=== PATIENT | male | born 1955 | race Two or more races ===

== ENCOUNTER 2025-02-09 13:32 | Inpatient (IN) | payer MEDICARE, MEDICAID, SELFPAY ==
[2025-02-09 13:45] VITALS: BP 143/78; PULSE 110; RESP 18; TEMP 36.7; O2SAT 99; BMI 26.6
--- NOTE | 2025-02-09 13:45 | XR_ITS ---
Examination: PA chest single view Technique: Upright PA chest single view Exam date and time: January,,2024, 1347 hrs. Indication: Chest pain coughing beginning 3 days ago. Findings: Significant bilateral pneumonia, especially bases Normal heart size Moderate osteopenia Impression: Significant bilateral pneumonia
--- NOTE | 2025-02-09 13:45 | EKG_ITS ---
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
--- NOTE | 2025-02-09 13:48 | EDNOTE_ITS ---
ED General RME/HPI General Chief complaint: Urogenital-Male Stated complaint: URINARY RETENTION, COUGH, CHILLS Time Seen by Provider: 02/09/25 13:41 Arrival date/time: 02/09/25 13:32 RME / HPI RME / HPI narrative: 69-year-old male patient came in for evaluation regarding flulike symptoms. Patient has been having flulike symptoms since Wednesday about 4 days ago, described as cough nonproductive, body aches, joint pains, chills, oliguria, severity moderate. Patient was seen by PCP, and was started on ProAir, Augmentin and promethazine. According to the patient and family symptoms is not improving. Denies any other complaints no medications taken prior travel. Related Data Allergies Allergy/AdvReac Type Severity Reaction Status Date / Time No Known Allergies Allergy Verified 02/09/25 13:35 Review of Systems Review of Systems Narrative Review of Systems: Review of system reviewed and within normal limits except mentioned in HPI ED Exam Narrative Physical exam: VITAL SIGNS: Reviewed. GENERAL APPEARANCE: Alert and interactive, follows commands, no acute distress, HEAD AND FACE: Non-traumatic. ENT: PERRL, pink conjunctivitis, eyelid no trauma, Mucous membrane moist. NECK: Supple, nontender, no nuchal rigidity. CHEST: No tenderness, no crepitus, no paradoxical movement, no retractions. LUNGS: Clear, well ventilated, symmetric, no rales, no wheezing, no ronchi, no stridor, good breath sounds bilaterally. HEART: Regular rate, regular rhythm, no murmur, no gallops. ABDOMEN: Soft, positive bowel sounds, nondistended, no guarding, nontender, no rebound, no masses, RECTAL: Deferred. GENITAL: Deferred. NEUROLOGICAL: Gross motor function intact sensory function intact, Appropriate for age. MUSCULOSKELETAL: low back nontender, full range of motion. EXTREMITIES: Nontender, full range of motion. SKIN: Color pink, dry, no rash, no lacerations, no abrasions, no contusions. LYMPHATICS: Deferred. Course Quality Measures none Orders Category Date Time Status Bedside COVID-19 Antigen Test NOW Care 02/09/25 13:46 Active Bedside Influenza A&B Antigen Test NOW Care 02/09/25 13:46 Completed COVID-19 Screening Questionnaire NOW Care 02/09/25 15:39 Active Decision to Admit X1 Care 02/09/25 15:38 Active EKG (ED ONLY) *Do not use* NOW Care 02/09/25 13:45 Completed EKG (ED Only) Stat Exams 02/09/25 13:45 Draft XR chest 1V Stat Exams 02/09/25 13:45 Completed Blood Culture (Lab) Stat Lab 02/09/25 14:06 Received CBC Stat Lab 02/09/25 14:02 Completed Comprehensive Metabolic Panel Stat Lab 02/09/25 14:02 Completed Lactate (Lactic Acid) Stat Lab 02/09/25 14:02 Results Partial Thromboplastin Time Stat Lab 02/09/25 14:02 Completed Path Review Blood Smear Stat Lab 02/09/25 14:02 Completed Procalcitonin Stat Lab 02/09/25 14:02 Completed RSV [Respiratory Syncytial Virus Ag] Stat Lab 02/09/25 13:46 Ordered Troponin I Stat Lab 02/09/25 14:02 Completed UA, C/S IF [Urinalysis, C/S if Indicated] Stat Lab 02/09/25 14:12 Results Acetaminophen Tab [Tylenol ES Tab] Med 02/09/25 14:00 Discontinued 1,000 mg PO X1 ONE Azithromycin Inj [Zithromax Inj] 500 mg Med 02/09/25 14:49 Active Sodium Chloride 0.9% 250 ml [Ns] 250 ml IV X1 Ondansetron Odt [Zofran Odt] Med 02/09/25 13:49 Discontinued 4 mg PO X1 ONE Ringers Lactated 1000 ml [Lactated Ringers] 1,000 ml Med 02/09/25 15:39 Active IV 999 mls/hr Sodium Chloride 0.9% 1000 ml [Ns] 1,000 ml Med 02/09/25 13:49 Discontinued IV 999 mls/hr cefTRIAXone [Rocephin] 2 gm Med 02/09/25 14:00 Discontinued SODIUM CHLORIDE 0.9% (Popper) [Ns 0.9% (P)] 50 ml IV X1 Vital Signs Vital signs: Vital Signs Temperature 98.1 F 02/09/25 13:45 Pulse Rate 110 H 02/09/25 13:45 Respiratory Rate 18 02/09/25 13:45 Blood Pressure 143/78 H 02/09/25 13:45 Pulse Oximetry (%) 99 02/09/25 13:45 Oxygen Delivery Method Room Air 02/09/25 13:45 [facility] Patient data External records reviewed:: None Clinical information provided by:: family Social determinants that could affect healthcare access:: none Patient has the following chronic illnesses:: hypertension How is presenting disease/condition affected by chronic disease/condition?: e xacerbated by Evaluation data The following diagnostics were reviewed and interpreted by me:: lab results, radiology exam(s) and EKG tracing(s) Lab and/or radiology exams considered but not ordered:: None Interpretation Summary: See results in MDM Medications Medications considered but not ordered:: None Medication administrations:: Medication Administration History Azithromycin 500 mg/ Sodium (Chloride) 250 mls @ 250 mls/hr IV X1 ONE Stop: 02/09/25 15:48 Last Admin: 02/09/25 15:37 Dose: 250 mls/hr Documented By: JAMESON Lactated Ringer's (Lactated Ringers) 1,000 mls @ 999 mls/hr IV .Q1H1M ONE Stop: 02/09/25 16:39 Discontinued Medications Acetaminophen (Acetaminophen 500 Mg Tablet) 1,000 mg PO X1 ONE Stop: 02/09/25 14:01 Last Admin: 02/09/25 14:07 Dose: 1,000 mg Documented By: ALEXA Sodium Chloride (Ns) 1,000 mls @ 999 mls/hr IV .Q1H1M ONE Stop: 02/09/25 14:49 Last Admin: 02/09/25 15:37 Dose: 999 mls/hr Documented By: JAMESON Ceftriaxone Sodium 2 gm/ (Sodium Chloride) 50 mls @ 100 mls/hr IV X1 ONE Stop: 02/09/25 14:29 Last Admin: 02/09/25 15:37 Dose: 100 mls/hr Documented By: JAMESON Ondansetron HCl (Ondansetron Odt 4 Mg Tabrap) 4 mg PO X1 ONE; Protocol Stop: 02/09/25 13:50 Last Admin: 02/09/25 13:57 Dose: 4 mg Documented By: ALEXA Zofran, ceftriaxone IV, Zithromax IV, IV fluids for hydration patient was also given Tylenol Consultations Consultation(s) initiated? (list below): No Diagnosis Differential Diagnosis ED Complaint MDM: Sepsis, pneumonia, hyponatremia Most likely diagnosis given after review of the tests above:: Sepsis, pneumonia Admission Indicated Admission indicated?: indicated Explain why admission is indicated or not indicated:: Patient needs to be admitted for further management. Admission Request Was there a request for admission?: Yes Admission Attestation Admission request attestation: Discussed case with [Dr Stein] from Hospitalist service regarding admission. Discussed patients ED course, exam findings, labs, and radiology results. The Hospitalist [agrees,] to accept the patient for admission. Disposition Plan Disposition Plan: Admit Medical Decision Making MDM Narrative MDM Narrative: 69-year-old male patient came in for evaluation regarding flulike symptoms. Patient has been having flulike symptoms since Wednesday about 4 days ago, described as cough nonproductive, body aches, joint pains, chills, oliguria, severity moderate. Patient was seen by PCP, and was started on ProAir, Augmentin and promethazine. According to the patient and family symptoms is not improving. Denies any other complaints no medications taken prior travel. Laboratory workup significant for sodium of 123, no leukocytosis noted. Was also noted to be anemic. 8.6. Chloride was also noted to be 93. Carbodec site 19.4 creatinine 1.4 BUN is normal lactic acid was noted to be 3.4 Pro-Beltran 0.70 urinalysis no UTI. EKG showed showed sinus tachycardia, ventricular rate of 112 bpm, no ST segment elevation depression noted. Patient received IV fluids for hydration. 2 L, IV ceftriaxone and IV Zithromax, Tylenol and Zofran. Case discussed with hospitalist who admitted the patient. Differential Diagnosis Differential Diagnosis: Sepsis, pneumonia, hyponatremia Lab Data 02/09/25 14:02 02/09/25 14:02 Labs: Lab Results 02/09/25 02/09/25 Range/Units 14:02 14:12 WBC 8.4 (3.8-10.6) Thou/mm3 RBC 4.17 L (4.50-5.90) Miln/mm3 Hgb 8.6 L (13.5-16.0) g/dL Hct 28.5 L (41.0-53.0) % MCV 68 L (80-100) fL MCH 20.6 L (25.0-35.0) pg MCHC 30.2 L (31.0-37.0) g/dl RDW Std Deviation 47.5 H (35.1-43.9) fL Plt Count 185 (140-440) Thou/mm3 Neut % (Auto) 71 (37-80) % Lymph % (Auto) 12 (10-50) % [place] % (Auto) 16 H (0-12) % Eos % (Auto) 0 (0-10) % Baso % (Auto) 0 (0-2.5) % Neut # (Auto) 5.9 (1.8-7.7) Thou/mm3 Lymph # (Auto) 1.0 (1.0-4.8) Thou/mm3 [place] # (Auto) 1.4 H (0.0-0.8) Thou/mm3 Eos # (Auto) 0.0 (0.0-0.5) Thou/mm3 Baso # (Auto) 0.0 (0.0-0.2) Thou/mm3 Immature Gran # (Auto) 0.08 H (0.00-0.00) Thou/mm3 Absolute Nucleated RBC 0.00 (0.00-0.00) Thou/mm3 Immature Gran % 1 H (0-0) % Nucleated RBC % 0 (0) /100 WBC Smear Path Review Sent to Pathologist APTT 23.2 (22.0-36.0) Seconds Sodium 123 L (136-145) mMol/L Potassium 4.9 (3.4-5.1) mMol/L Chloride 93 L (98-107) mMol/L Carbon Dioxide 19.4 L (20.0-31.0) mMol/L Anion Gap 11 (7-16) BUN 22 (9-23) mg/dL Creatinine 1.4 H (0.6-1.3) mg/dL Estim Creat Clear Calc 48.2 L (>60) mL/min eGFR 54 L (60 - ) See Note BUN/Creatinine Ratio 16 (12-20) Ratio Glucose 356 H (74-106) mg/dL Calculated Osmolality 265 L (275-295) Lactic Acid 3.4 H (0.4-2.0) mMol/L Calcium 9.4 (8.3-10.6) mg/dL Corrected Calcium 9.8 (8.5-10.1) mg/dL Total Bilirubin 0.8 (0.3-1.2) mg/dL AST 51 H (0-34) U/L ALT 19 (10-49) U/L Alkaline Phosphatase 144 H (46-116) U/L Troponin I < 0.002 (0.0-0.045) ng/mL Total Protein 7.4 (5.7-8.2) gm/dL Albumin 3.5 (3.4-4.8) gm/dL Globulin 3.9 H (2.3-3.5) gm/dL Albumin/Globulin Ratio 0.9 L (1.2-2.2) Procalcitonin 0.70 H (0.0-0.49) ng/ml Urine Color Yellow (Lt Yel-Yel) Urine Clarity Clear (Clear/Hazy) Urine pH 6.5 (5.0-7.0) Ur Specific [place] 1.015 (1.001-1.035) Urine Protein 1+ A (Neg - Trace) Urine Glucose (UA) 2+ A (Negative) Urine Ketones Negative (Negative) Urine Blood Negative (Negative) Urine Nitrite Negative (Negative) Urine Bilirubin Negative (Negative) Urine Urobilinogen (Auto) 2.0 (0.0-1.0) mg/dL Ur Leukocyte Esterase Trace (Negative) Urine WBC 3 (0-5) /hpf Ur Squamous Epith Cells 1 (0-5) /hpf Urine Bacteria Rare (None) Ur Culture Indicated? Not Indicated Discharge Plan Plan Patient Disposition: Admit Acute Care w/in Hospital Disposition Comment: Stable Problem List Clinical Impression: Sepsis, Pneumonia, Acute hyponatremia Patient/Caregiver Discharge Instructions Print Language: Gibralt[place] Stand Alone Forms: Maeve Award Info., Patient Portal Info Letter
[2025-02-09] MEDS: ONDANSETRON ODT 4 MG TABRAP PO (13:57)
[2025-02-09 14:01] VITALS: TEMP 37.9
[2025-02-09 14:07] VITALS: TEMP 38.8
[2025-02-09] MEDS: ACETAMINOPHEN 500 MG TABLET 1000 MG PO (14:07)
[2025-02-09 14:18] LABS: Lactate (Lactic Acid) 3.4 mMol/L (0.4-2.0)
[2025-02-09 14:20] LABS: Collection Type, Urine Clean Catch
[2025-02-09 14:21] LABS: Basophils % (Auto) 0 % (0-2.5); Eosinophils % (Auto) 0 % (0-10); Hematocrit 28.5 % (41.0-53.0); Immature Granulocytes % (Auto) 1 % (0-0); Immature Granulocytes Auto 0.08 Thou/mm3 (0.00-0.00); Lymphocytes % (Auto) 12 % (10-50); Mean Corpuscular HGB Conc 30.2 g/dl (31.0-37.0); Mean Corpuscular Hemoglobin 20.6 pg (25.0-35.0); Mean Corpuscular Volume 68 fL (80-100); Monocytes # (Auto) 1.4 Thou/mm3 (0.0-0.8); Monocytes % (Auto) 16 % (0-12); Neutrophils # (Auto) 5.9 Thou/mm3 (1.8-7.7); Neutrophils % (Auto) 71 % (37-80); Nucleated Red Blood Cell % 0 /100 WBC (0); Platelet Count 185 Thou/mm3 (140-440); RDW Standard Deviation 47.5 fL (35.1-43.9); Red Blood Count 4.17 Miln/mm3 (4.50-5.90); White Blood Count 8.4 Thou/mm3 (3.8-10.6)
[2025-02-09 14:27] LABS: Bilirubin,Urine Negative (Negative); Blood,Urine Negative (Negative); Clarity,Urine Clear (Clear/Hazy); Color,Urine Yellow (Lt Yel-Yel); Culture Indicated,Urine Not Indicated; Glucose, Urine 2+ (Negative); Ketones,Urine Negative (Negative); Leukocyte Esterase,Urine Trace (Negative); Nitrite,Urine Negative (Negative); PH,Urine 6.5 (5.0-7.0); Protein,Urine 1+ (Neg - Trace); Specific Gravity,Urine 1.015 (1.001-1.035)
[2025-02-09 14:29] LABS: WBC,Urine 3 /hpf (0-5)
[2025-02-09 14:30] LABS: Bacteria,Urine Rare; Squamous Epithelial Cell,Urine 1 /hpf (0-5)
[2025-02-09 14:32] LABS: Hemoglobin 8.6 g/dL (13.5-16.0)
[2025-02-09 14:35] LABS: Partial Thromboplastin Time 23.2 Seconds (22.0-36.0); Path Review Blood Smear Sent to Pathologist
[2025-02-09 14:45] LABS: Alanine Aminotransferase 19 U/L (10-49); Albumin, Serum 3.5 gm/dL (3.4-4.8); Albumin/Globulin Ratio 0.9 (1.2-2.2); Alkaline Phosphatase 144 U/L (46-116); Anion Gap 11 (7-16); Aspartate Amino Transferase 51 U/L (0-34); BUN/Creatinine Ratio 16 Ratio (12-20); Bilirubin,Total 0.8 mg/dL (0.3-1.2); Blood Urea Nitrogen 22 mg/dL (9-23); Calcium 9.4 mg/dL (8.3-10.6); Calcium (Corrected) 9.8 mg/dL (8.5-10.1); Carbon Dioxide 19.4 mMol/L (20.0-31.0); Chloride 93 mMol/L (98-107); Creatinine (Component) 1.4 mg/dL (0.6-1.3); Estimated Creatinine Clearance 48.2 mL/min (>60); Globulin 3.9 gm/dL (2.3-3.5); Glucose 356 mg/dL (74-106); Osmolality,Calculated 265 (275-295); Potassium 4.9 mMol/L (3.4-5.1); Sodium 123 mMol/L (136-145); Total Protein 7.4 gm/dL (5.7-8.2); Troponin I < 0.002 ng/mL (0.0-0.045); eGFR 54 See Note
[2025-02-09 15:25] VITALS: BP 108/68; PULSE 106; RESP 22; TEMP 37; O2SAT 94
[2025-02-09] MEDS: cefTRIAXone 2 GM in SODIUM CHLORIDE 0.9% (Popper) 50 ML IV (15:37)
[2025-02-09] MEDS: AZITHROMYCIN INJ 500 MG in SODIUM CHLORIDE 0.9% 250 ML 250 ML 250 MG IV (15:37)
[2025-02-09] MEDS: SODIUM CHLORIDE 0.9% 1000 ML 1,000 ML 999 ML IV (15:37)
[2025-02-09 16:29] LABS: RBC,Urine 2 /hpf (0-3)
--- NOTE | 2025-02-09 16:49 | PC.CC ---
Patient is a 69 year-old male who presents to the hospital for Urinary Retention, Cough, Chills. Jagruti WILLIAM made [id number] contact with patient. ASW introduced self, role, and reason for visit. Patient appeared alert and oriented to self, location, and situation. At bedside was patient's , Joelle Zhang , patient provided consent for to remain in the room during assessment. Patient was pleasant and engaged in initial assessment. Patient reports his physical address is [address] [place], [place] [id number] and lives at home with his . Patient reports that should something happen to him and he is unable to make his own medical decisions his decision maker would be his . At home patient ambulates independently and completes his own ADLs without any DME. Patient was unable to provide where he receives primary care for medical needs. Upon discharge the patient plans to return home. member services coordinator to follow up for any discharge needs.
[2025-02-09] MEDS: RINGERS LACTATED 1000 ML 1,000 ML 999 ML IV (16:52)
[2025-02-09 17:00] VITALS: BP 115/75; PULSE 105; RESP 20; TEMP 36.8; O2SAT 97
--- NOTE | 2025-02-09 17:01 | PD.RESHP ---
Documentation for date of: 02/09/25 HPI History of Present Illness Chief complaint: Generalized weakness, fevers History of present illness: Mr. Rodriguez is a 69-year-old male with past medical history significant for diabetes type 2 on metformin, hypertension, hyperlipidemia who came into the ED with generalized weakness and worsening upper respiratory infection symptoms. Patient recently was seen by [facility] 5 days ago, and started on Augmentin, promethazine and albuterol. Patient came to the ED after symptoms continue to progress despite antibiotics. Associated symptoms include fevers, chills, productive cough, and stomach pain. Patient denies any sick contacts, diarrhea, constipation, chest pain, shortness of breath, recent travel. Patient states that he is had the COVID and influenza vaccines in the past. Of note, patient stopped taking metformin 9 days ago, due to no refill. ED course: Patient came in with blood pressure of 143/78, heart rate of 110, otherwise hemodynamically stable. Labs significant for low hemoglobin of 8.6, low sodium of 123, corrected 127, creatinine 1.4, lactic acid 3.4, elevated Pro-Beltran of 0.7. UA shows 2+ glucose and 1+ protein, otherwise negative for UTI. Chest x-ray shows significant bilateral pneumonia. EKG shows sinus tachycardia at 112. In the ED, patient was given 2 L bolus, ceftriaxone azithromycin x 1, Zofran, and 1 g Tylenol. Patient admitted to telemetry for further management of sepsis secondary to community-acquired pneumonia. Review of Systems Review of Systems Systems Reviewed: All systems reviewed, normal except as documented Past Medical History Past Medical History Comments PMH COMMENT: Past medical history: As mentioned above Past surgical history: None Allergies: NKDA Meds: Metformin, unable to remember other medications, and denies using insulin. Family history: Noncontributory Social history: Used to be a heavy smoker and drinker, but quit 13 years ago. Exam Vital Signs Temp Pulse Resp BP Pulse Ox O2 Del Method 98.6 F 106 H 22 H 108/68 94 L Room Air 02/09/25 15:25 02/09/25 15:25 02/09/25 15:25 02/09/25 15:25 02/09/25 15:25 02/09/25 15:25 Narrative Exam General Appearance: Pt in mild acute distress laying in bed. Alert and oriented. Cooperative to questions well nourished and well-hydrated. HEENT: NC/AT, no scleral icterus, no conjunctival pallor, MMM Lungs: Diminished lung sounds throughout. No wheezes or crackles appreciated. CVS: RRR, S1/S2 heard, no murmurs or rubs appreciated ABD: Soft, obese, mild tenderness to palpation in umbilical region, non-distended, BS + in all 4 quadrants EXT: no deformity/edema/lesions/cyanosis/clubbing, radial pulses 2+ BL, DP pulses 2 + BL SKIN: Skin exam normal without any rashes. Neuro: A&O x 3. No gross neurological deficits. Motor and sensory grossly intact in B/L UL and LL. Psych: Appropriate mood and affect Results: Labs 02/09/25 14:02 02/09/25 14:02 Labs: Short CBC 02/09/25 Range/Units 14:02 WBC 8.4 (3.8-10.6) Thou/mm3 Hgb 8.6 L (13.5-16.0) g/dL Hct 28.5 L (41.0-53.0) % Plt Count 185 (140-440) Thou/mm3 BMP 02/09/25 14:02 Sodium 123 L Potassium 4.9 Chloride 93 L Carbon Dioxide 19.4 L BUN 22 Creatinine 1.4 H Glucose 356 H Calcium 9.4 Cardiac Enzymes 02/09/25 Range/Units 14:02 Troponin I < 0.002 (0.0-0.045) ng/mL Liver Function 02/09/25 Range/Units 14:02 Total Bilirubin 0.8 (0.3-1.2) mg/dL AST 51 H (0-34) U/L ALT 19 (10-49) U/L Alkaline Phosphatase 144 H (46-116) U/L Albumin 3.5 (3.4-4.8) gm/dL Urine 02/09/25 Range/Units 14:12 Urine Color Yellow (Lt Yel-Yel) Urine Clarity Clear (Clear/Hazy) Urine pH 6.5 (5.0-7.0) Ur Specific [place] 1.015 (1.001-1.035) Urine Protein 1+ A (Neg - Trace) Urine Glucose (UA) 2+ A (Negative) Quality Measures Quality Measures none Advance care planning discussed with:: patient and spouse Medications Home Medications and Allergies Allergies Allergy/AdvReac Type Severity Reaction Status Date / Time No Known Allergies Allergy Verified 02/09/25 13:35 Visit Medications Acetaminophen (Acetaminophen 325 Mg Tablet) 650 mg PO Q6H PRN PRN Reason: Fever >101.5 Stop: 03/11/25 16:41 Acetaminophen (Acetaminophen 325 Mg Tablet) 650 mg PO Q6H PRN PRN Reason: PAIN SCALE 1-3 (mild Stop: 03/11/25 16:51 Dextrose (Dextrose 50%-Water Inj 50 Ml Syringe) 25 ml IV Q15MIN PRN PRN Reason: BG 50-70 responsive npo pt Stop: 03/11/25 16:55 Dextrose (Dextrose 50%-Water Inj 50 Ml Syringe) 50 ml IV Q15MIN PRN PRN Reason: BG <50 OR BG <70 & pt unresponsive Stop: 03/11/25 16:55 Glucagon (Glucagon Inj 1 Mg Vial) 1 mg IM Q15MIN PRN PRN Reason: BG <70, and no IV access Heparin Sodium (Porcine) (Heparin Sod Inj 5000 Unit/Ml Vial) 5,000 unit SC Q8HR JOE Stop: 02/23/25 21:59 Sodium Chloride (Ns) 1,000 mls @ 80 mls/hr IV .[id number] JOE Stop: 03/11/25 16:59 Ceftriaxone Sodium 1,000 mg/ (Sodium Chloride) 50 mls @ 100 mls/hr IV QDAY JOE Stop: 02/16/25 16:58 Doxycycline Hyclate 100 mg/ (Sodium Chloride) 100 mls @ 100 mls/hr IV BID JOE Stop: 02/16/25 20:59 Insulin Glargine (Insulin Glargine (Lantus) 5 Unit/0.05 Ml (Per 5 Units)) 10 unit SC QDAY JOE Stop: 03/11/25 16:59 Insulin Human Lispro (Insulin Lispro (Admelog) 1 Unit/0.01 Ml Unit) 0 unit SC AC JOE; Protocol Stop: 03/11/25 16:59 Ondansetron HCl (Ondansetron Inj 2 Mg/Ml Inj 2 Ml) 4 mg IV Q6H PRN; Protocol PRN Reason: NAUSEA OR VOMITING Stop: 03/11/25 16:41 Discontinued Medications Acetaminophen (Acetaminophen 500 Mg Tablet) 1,000 mg PO X1 ONE Stop: 02/09/25 14:01 Last Admin: 02/09/25 14:07 Dose: 1,000 mg Sodium Chloride (Ns) 1,000 mls @ 999 mls/hr IV .Q1H1M ONE Stop: 02/09/25 14:49 Last Infusion: 02/09/25 16:59 Dose: Infused Ceftriaxone Sodium 2 gm/ (Sodium Chloride) 50 mls @ 100 mls/hr IV X1 ONE Stop: 02/09/25 14:29 Last Infusion: 02/09/25 16:53 Dose: Infused Azithromycin 500 mg/ Sodium (Chloride) 250 mls @ 250 mls/hr IV X1 ONE Stop: 02/09/25 15:48 Last Infusion: 02/09/25 16:53 Dose: Infused Lactated Ringer's (Lactated Ringers) 1,000 mls @ 999 mls/hr IV .Q1H1M ONE Stop: 02/09/25 16:39 Last Admin: 02/09/25 16:52 Dose: 999 mls/hr Ondansetron HCl (Ondansetron Odt 4 Mg Tabrap) 4 mg PO X1 ONE; Protocol Stop: 02/09/25 13:50 Last Admin: 02/09/25 13:57 Dose: 4 mg Assessment & Plan Plan Mr. Rodriguez is a 69-year-old male with past medical history significant for diabetes type 2 on metformin, hypertension, hyperlipidemia who came into the ED with generalized weakness and worsening upper respiratory infection symptoms and admitted to [facility] for further management of sepsis secondary to community-acquired pneumonia. #Sepsis secondary to #Community-acquired bilateral pneumonia Patient came in with generalized weakness and worsening upper respiratory tract infection symptoms after failing outpatient antibiotics. Patient continues to have fevers, chills, productive cough, and stomach pain. Chest x-ray in the ED shows bilateral pneumonia. Physical exam significant for diminished lung sounds throughout all lung bases. Pro-Belrtan elevated at 0.7. Lactic acid elevated at 3.4. Influenza and COVID-19 negative. -Admit to telemetry -IV ceftriaxone and doxycycline -Cocci IgM/IgG -RSV -Strep A -Blood cultures -Oxygen as needed as needed -Zofran as needed for nausea -Tylenol as needed for fevers -Patient given bolus per sepsis criteria of 30cc/kg within 3 hours #Lactic acidosis #Dehydration Lactic acid elevated at 3.4, most likely in the setting of sepsis and infection due to poor organ perfusion. -Continue to trend lactic acid every 6 -Given sepsis bolus and started on IV NS maintenance #Diabetes mellitus type 2 not on chronic insulin therapy Patient takes home metformin twice daily with meals. -A1c ordered for a.m. -Start sliding scale insulin -Will give Lantus 10 mg daily x 1 today and just bolus dose based on daily glucose levels -Hypoglycemic protocol in place #Essential Hypertension -Will resume patient's home medications pending med rec -Continue to monitor vital signs -May need to add a BP med if BP continues to rise/stay elevated #Hyperlipidemia -Will resume patient's home medications pending med rec Health Maintenance: DVT prophylaxis: Heparin subcu every 8 Diet: Carb consistent low Ortega: No Lines: PIV Supplemental O2: As needed CODE STATUS: Full code Disposition: Patient medically telemetry for further management of sepsis secondary to community-acquired pneumonia after failing outpatient antibiotics. Patient's plan and care discussed with my attending, Dr. Joshua Stein MD PGY-2 Attending Provider Attestation/Addendum I attest that I was physically present for the evaluation, physical examination, lab and imaging review of the patient with the residents. I discussed the case with the residents and agree with the findings and plans of care as documented above. Patient is a 69 years old male with past medical history of diabetes, hypertension, hyperlipidemia who presented to the ED with complaint of generalized weakness. Patient had a upper respiratory infection for which he went to his PCP and was started on Augmentin, promethazine and albuterol. But patient's symptom continued to worsen despite the medication. He started having generalized weakness, fever, chills, productive cough and decided to visit the ED. In the ED, his heart rate was 110, rest of the vitals were within normal limits. Lab results showed sodium of 123, corrected for glucose 127. Creatinine 1.4, lactate 3.4, procalcitonin 0.7. Chest x-ray shows bilateral pneumonia. EKG shows sinus tachycardia. We will admit the patient for sepsis secondary to community-acquired pneumonia and outpatient treatment failure. Started patient on IV Rocephin and doxycycline. Patient received IV fluid bolus, blood cultures were obtained. We will also obtain RSV cocci and MRSA. Will continue with maintenance fluids for his lactic acidosis. Started on insulin regimen for diabetes. Holding off on antihypertensives as patient has soft blood pressure currently, we will add if his blood pressure starts to go up. Rafael Lewis MD
[2025-02-09 17:15] LABS: Reflex Lactate? Y
[2025-02-09 17:16] LABS: Glucose Estimated Average 151 mg/dL (80-131); Hemoglobin A1C 6.9 % Hgb (4.8-6.0)
[2025-02-09] MEDS: INSULIN GLARGINE (Lantus) 5 UNIT/0.05 ML (PER 5 UNITS) 10 UNIT SC (17:19)
[2025-02-09 17:20] LABS: Lactate (Lactic Acid) 1.8 mMol/L (0.4-2.0)
[2025-02-09] MEDS: INSULIN LISPRO (AdmeLOG) 1 UNIT/0.01 ML UNIT SC (17:20)
[2025-02-09] MEDS: SODIUM CHLORIDE 0.9% 1000 ML 1,000 ML 80 ML IV (17:21)
[2025-02-09 19:00] VITALS: BP 101/72; PULSE 65; RESP 20; O2SAT 95
[2025-02-09 20:42] LABS: Lactate (Lactic Acid) 1.4 mMol/L (0.4-2.0)
[2025-02-09 22:51] LABS: Respiratory Syncytial Virus Ag Negative (Negative)
[2025-02-09 23:20] LABS: Strep A Rapid Negative (Negative)
[2025-02-09] MEDS: DOXYCYCLINE INJ 100 MG in SODIUM CHLORIDE 0.9% (POP) 100 ML IV (23:36)
[2025-02-09] MEDS: HEPARIN SOD INJ 5000 UNIT/ML VIAL SC (23:37)
--- NOTE | 2025-02-09 23:59 | PC.NURSE ---
Report received, pt arrived to room 350 via gurney, connected to metal lather, IVF and oriented to room and call light within reach.
[2025-02-10] VITALS (12 sets, daily range): BP systolic 107–152; BP diastolic 59–80; PULSE 65–113; RESP 16–22; TEMP 36.1–37.2; O2SAT 94–96; BMI 27.4
[2025-02-10] MEDS: SODIUM CHLORIDE 0.9% 1000 ML 1,000 ML 80 ML IV (00:11)
[2025-02-10] MEDS: HEPARIN SOD INJ 5000 UNIT/ML VIAL SC ×2 (05:30→15:04)
--- NOTE | 2025-02-10 05:52 | PC.NURSE ---
Pt had x2 bowel movement pt states MD had given him some powder medication to help him have bowel movement, stated when comes he can have her get his medications.
[2025-02-10 06:03] LABS: Basophils % (Auto) 0 % (0-2.5); Eosinophils % (Auto) 0 % (0-10); Hematocrit 23.4 % (41.0-53.0); Immature Granulocytes % (Auto) 1 % (0-0); Immature Granulocytes Auto 0.07 Thou/mm3 (0.00-0.00); Lymphocytes # (Auto) 1.1 Thou/mm3 (1.0-4.8); Lymphocytes % (Auto) 15 % (10-50); Mean Corpuscular HGB Conc 31.2 g/dl (31.0-37.0); Mean Corpuscular Hemoglobin 21.2 pg (25.0-35.0); Mean Corpuscular Volume 68 fL (80-100); Monocytes # (Auto) 1.2 Thou/mm3 (0.0-0.8); Monocytes % (Auto) 16 % (0-12); Neutrophils % (Auto) 67 % (37-80); Nucleated Red Blood Cell % 0 /100 WBC (0); Platelet Count 221 Thou/mm3 (140-440); RDW Standard Deviation 46.1 fL (35.1-43.9); Red Blood Count 3.45 Miln/mm3 (4.50-5.90); White Blood Count 7.4 Thou/mm3 (3.8-10.6)
[2025-02-10 06:12] LABS: Hemoglobin 7.3 g/dL (13.5-16.0)
[2025-02-10 06:41] LABS: Alanine Aminotransferase 16 U/L (10-49); Albumin, Serum 3.1 gm/dL (3.4-4.8); Albumin/Globulin Ratio 0.9 (1.2-2.2); Alkaline Phosphatase 119 U/L (46-116); Anion Gap 9 (7-16); Aspartate Amino Transferase 30 U/L (0-34); BUN/Creatinine Ratio 18 Ratio (12-20); Bilirubin,Total 0.5 mg/dL (0.3-1.2); Blood Urea Nitrogen 18 mg/dL (9-23); Calcium 9.1 mg/dL (8.3-10.6); Calcium (Corrected) 9.8 mg/dL (8.5-10.1); Carbon Dioxide 19.7 mMol/L (20.0-31.0); Chloride 99 mMol/L (98-107); Estimated Creatinine Clearance 68.2 mL/min (>60); Globulin 3.4 gm/dL (2.3-3.5); Glucose 172 mg/dL (74-106); Magnesium 1.6 mg/dL (1.6-2.6); Osmolality,Calculated 262 (275-295); Phosphorous 2.5 mg/dL (2.4-5.1); Potassium 4.3 mMol/L (3.4-5.1); Sodium 128 mMol/L (136-145); Total Protein 6.5 gm/dL (5.7-8.2); eGFR > 60 See Note
--- NOTE | 2025-02-10 07:08 | ESPR_ITS ---
Documentation for date of: 02/10/25 Subjective Subjective Interval history: Not overnight acute events This morning at the bedside, patient is AOx4, saturating well on room air, responding questions properly, patient stated that he is feeling better compared to yesterday otherwise he did not eat this morning he stated that he did not have enough appetite hemoglobin has been downtrending pending FOBT to rule out possible acute GI bleed, gastroenterology was consulted we greatly appreciate recommendations. Exam Vital Signs Temp Pulse Resp BP Pulse Ox O2 Del Method 97.9 F 100 16 151/80 H 95 Room Air 02/10/25 04:00 02/10/25 04:00 02/10/25 04:00 02/10/25 04:00 02/10/25 04:00 02/10/25 04:00 Narrative Exam General: No acute distress, pale, alert, interactive, AOx4, saturating well on room air HEENT: NC/AT, PERRL, EOMI, Good conjugate gaze, pale mucosa, moist mucous membranes, oropharynx clear. Neck: Supple, No masses, No adenopathy, carotid pulse 2+ bilaterally without bruits, No JVD, normal range of motion. Chest: Symmetrical, atraumatic, and with equal expansion , Nontender on palpation no deformity and no crepitus. CVS: S1 and S2 present, Regular rate and rhythm, No murmurs, rubs or gallops perceived during auscultation. Lungs: Normal respiratory effort, decreased bilateral breath sounds, no wheezing, rhonchi or rales perceived during auscultation, No intercostal or subcostal retraction. Abdomen : Soft, no tenderness to palpation, no guarding ,no rebound, +BS, no organomegaly. Extremities: No edema, warm well perfused, normal tone and ROM, strength and sensation intact, cap refill less than 2, +2 dp equal bilaterally, able to move all 4 extremities spontaneously. Skin: Pale, intact, no rashes, no lesions, no erythema Neuro: AOx4, no focal neurologic deficits noted, GCS 15 Psych: Appropriate mood and affect. Objective Labs 02/10/25 16:03 02/10/25 04:26 Labs: Laboratory Results - last 24 hr 02/09/25 02/09/25 02/09/25 14:02 14:12 17:10 WBC 8.4 RBC 4.17 L Hgb 8.6 L Hct 28.5 L MCV 68 L MCH 20.6 L MCHC 30.2 L RDW Std Deviation 47.5 H Plt Count 185 Neut % (Auto) 71 Lymph % (Auto) 12 [place] % (Auto) 16 H Eos % (Auto) 0 Baso % (Auto) 0 Neut # (Auto) 5.9 Lymph # (Auto) 1.0 [place] # (Auto) 1.4 H Eos # (Auto) 0.0 Baso # (Auto) 0.0 Immature Gran # (Auto) 0.08 H Absolute Nucleated RBC 0.00 Immature Gran % 1 H Nucleated RBC % 0 Smear Path Review Sent to Pathologist APTT 23.2 Sodium 123 L Potassium 4.9 Chloride 93 L Carbon Dioxide 19.4 L Anion Gap 11 BUN 22 Creatinine 1.4 H Estim Creat Clear Calc 48.2 L eGFR 54 L BUN/Creatinine Ratio [address] Glu mg/dL 151 H Hemoglobin A1c 6.9 H Calculated Osmolality 265 L Lactic Acid 3.4 H 1.8 Calcium 9.4 Corrected Calcium 9.8 Phosphorus Magnesium Total Bilirubin 0.8 AST 51 H ALT 19 Alkaline Phosphatase 144 H Troponin I < 0.002 Total Protein 7.4 Albumin 3.5 Globulin 3.9 H Albumin/Globulin Ratio 0.9 L Procalcitonin 0.70 H Ur Collection Type Clean Catch Urine Color Yellow Urine Clarity Clear Urine pH 6.5 Ur Specific [place] 1.015 Urine Protein 1+ A Urine Glucose (UA) 2+ A Urine Ketones Negative Urine Blood Negative Urine Nitrite Negative Urine Bilirubin Negative Urine Urobilinogen (Auto) 2.0 Ur Leukocyte Esterase Trace Urine RBC 2 Urine WBC 3 Ur Squamous Epith Cells 1 Urine Bacteria Rare Ur Culture Indicated? Not Indicated RSV Rapid Group A Strep Rapid 02/09/25 02/09/25 02/10/25 20:33 22:19 04:26 WBC 7.4 RBC 3.45 L Hgb 7.3 L Hct 23.4 L MCV 68 L MCH 21.2 L MCHC 31.2 RDW Std Deviation 46.1 H Plt Count 221 D Neut % (Auto) 67 Lymph % (Auto) 15 [place] % (Auto) 16 H Eos % (Auto) 0 Baso % (Auto) 0 Neut # (Auto) 5.0 Lymph # (Auto) 1.1 [place] # (Auto) 1.2 H Eos # (Auto) 0.0 Baso # (Auto) 0.0 Immature Gran # (Auto) 0.07 H Absolute Nucleated RBC 0.00 Immature Gran % 1 H Nucleated RBC % 0 Smear Path Review APTT Sodium 128 L Potassium 4.3 D Chloride 99 Carbon Dioxide 19.7 L Anion Gap 9 BUN 18 Creatinine 1.0 Estim Creat Clear Calc 68.2 eGFR > 60 BUN/Creatinine Ratio 18 Glucose [address] Glu mg/dL Hemoglobin A1c Calculated Osmolality 262 L Lactic Acid 1.4 Calcium 9.1 Corrected Calcium 9.8 Phosphorus 2.5 Magnesium 1.6 Total Bilirubin 0.5 AST 30 ALT 16 Alkaline Phosphatase 119 H D Troponin I Total Protein 6.5 Albumin 3.1 L Globulin 3.4 Albumin/Globulin Ratio 0.9 L Procalcitonin Ur Collection Type Urine Color Urine Clarity Urine pH Ur Specific [place] Urine Protein Urine Glucose (UA) Urine Ketones Urine Blood Urine Nitrite Urine Bilirubin Urine Urobilinogen (Auto) Ur Leukocyte Esterase Urine RBC Urine WBC Ur Squamous Epith Cells Urine Bacteria Ur Culture Indicated? RSV Rapid Negative Group A Strep Rapid Negative Quality Measures Quality Measures none Advance care planning discussed with:: patient Assessment & Plan Assessment Current Active Medications: Generic Name Dose Route Start Last Admin Trade Name Freq PRN Reason Stop Dose Admin Acetaminophen 650 mg 02/09/25 16:42 Acetaminophen 325 Mg Tablet PO 03/11/25 16:41 Q6H PRN Fever >101.5 Acetaminophen 650 mg 02/09/25 16:52 Acetaminophen 325 Mg Tablet PO 03/11/25 16:51 Q6H PRN PAIN SCALE 1-3 (mild Dextrose 25 ml 02/09/25 16:56 Dextrose 50%-Water Inj 50 Ml Syringe IV 03/11/25 16:55 Q15MIN PRN BG 50-70 responsive npo pt Dextrose 50 ml 02/09/25 16:56 Dextrose 50%-Water Inj 50 Ml Syringe IV 03/11/25 16:55 Q15MIN PRN BG <50 OR BG <70 & pt unresponsive Glucagon 1 mg 02/09/25 16:56 Glucagon Inj 1 Mg Vial IM Q15MIN PRN BG <70, and no IV access Heparin Sodium (Porcine) 5,000 unit 02/09/25 22:00 02/10/25 05:30 Heparin Sod Inj 5000 Unit/Ml Vial SC 02/23/25 21:59 5,000 unit Q8HR JOE Administration Sodium Chloride 1,000 mls @ 80 mls/hr 02/09/25 17:00 02/10/25 00:11 Ns IV 03/11/25 16:59 80 mls/hr .[id number] JOE Administration Ceftriaxone Sodium 1,000 mg/ 50 mls @ 100 mls/hr 02/09/25 16:59 02/09/25 17:18 Sodium Chloride IV 02/16/25 16:58 Not Given QDAY JOE Doxycycline Hyclate 100 mg/ 100 mls @ 100 mls/hr 02/09/25 21:00 02/09/25 23:36 Sodium Chloride IV 02/16/25 20:59 100 mls/hr BID JOE Administration Insulin Glargine 10 unit 02/09/25 17:00 02/09/25 17:19 Insulin Glargine (Lantus) 5 Unit/0.05 Ml (Per 5 Units) SC 03/11/25 16:59 10 unit QDAY JOE Administration Insulin Human Lispro 0 unit 02/09/25 17:00 02/09/25 17:20 Insulin Lispro (Admelog) 1 Unit/0.01 Ml Unit SC 03/11/25 16:59 4 unit AC JOE Administration Protocol Ondansetron HCl 4 mg 02/09/25 16:42 Ondansetron Inj 2 Mg/Ml Inj 2 Ml IV 03/11/25 16:41 Q6H PRN NAUSEA OR VOMITING Protocol Plan Mr. Rodriguez is a 69-year-old male with past medical history significant for diabetes type 2 on metformin, hypertension, hyperlipidemia who came into the ED with generalized weakness and worsening upper respiratory infection symptoms and admitted to [facility] for further management of sepsis secondary to community- acquired pneumonia. #Sepsis improving #Community-acquired bilateral pneumonia Patient came in with generalized weakness and worsening upper respiratory tract infection symptoms after failing outpatient antibiotics. Patient continues to have fevers, chills, productive cough, and stomach pain. Chest x-ray in the ED shows bilateral pneumonia. Physical exam significant for diminished lung sounds throughout all lung bases. Pro-Beltran elevated at 0.7. Lactic acid elevated at 3.4. Influenza and COVID-19 negative. -IV ceftriaxone and doxycycline -Pending cocci IgM/IgG -Pending blood cultures -Oxygen as needed as needed -Zofran as needed for nausea -Tylenol as needed for fevers #Rule out acute GI bleed Possibly secondary to PUD vs esophageal varices vs diverticulosis question Patient hemoglobin has been downtrending since admission hemoglobin 7.1 Gastroenterology was consulted we greatly appreciate recommendations ? Type and screen ? Transfuse if hemoglobin less than 7 ? Follow-up H&H #Acute microcytic anemia #Iron deficiency anemia Possibly secondary to PUD vs anemia of chronic disease vs diverticulosis vs malignancy? Iron panel show iron deficiency anemia with iron sat 10% and iron of 34 mcg/dL Gastroenterology was consulted for further workup with greatly patient recommendations ? Follow-up CBC #Diabetes mellitus type 2 not on chronic insulin therapy Patient takes home metformin twice daily with meals. A1c 6.9 -Start sliding scale insulin -Continue Lantus 10 SQ daily -Hypoglycemic protocol in place #Essential Hypertension -Will resume patient's home medications pending med rec -Continue to monitor vital signs ?Started amlodipine 5 mg p.o. daily #Hyperlipidemia -Will resume patient's home medications pending med rec #Lactic acidosis resolved #Dehydration Lactic acid elevated at 3.4, most likely in the setting of sepsis and infection due to poor organ perfusion. Lactic acid downtrending to normal limits Health Maintenance: DVT prophylaxis: Heparin subcu every 8 Diet: Carb consistent low [place]te[place]: No Lines: PIV Supplemental O2: As needed CODE STATUS: Full code Patient discussed with my attending Dr Joshua Portillo MD PGY-3 Disclaimer: Despite multiple revisions, due to the dictation software being used, the document bellow may not be free of grammatical errors including phonetic/typographic errors. However, this does not deter from our commitment to providing health care in the patient's best interest in mind. Attending Provider Attestation/Addendum I attest that I was physically present for the evaluation, physical examination, lab and imaging review of the patient with the residents. I discussed the case with the residents and agree with the findings and plans of care as documented above. At bedside today, patient is states she is feeling well and does not have any new complaints. Saturating well on room air. He did not eat this morning as he did not have good appetite. Continues to be on IV Rocephin and doxycycline, pending culture results. Patient noted to have drop in his hemoglobin currently 7.1 from 8.6 yesterday. We will obtain FOBT, iron panel, B12 and folate. Transfusing 1 unit of PRBC, we will also obtain GI consult. Patient noted to have no iron level, we will start her iron tablets on discharge. Continues to be on insulin regimen for diabetes. Patient and family at bedside explained in detail about his current condition and further management plan, they are in agreement with the plan. Rafael Lewis MD
[2025-02-10] MEDS: INSULIN LISPRO (AdmeLOG) 1 UNIT/0.01 ML UNIT SC (07:12)
[2025-02-10 07:56] LABS: Ferritin 165 ng/mL (10.5-307.3); Iron 34 mcg/dL (65-175); Percent Iron Saturation 10 % (20-55); Total Iron Binding Capacity 339 mcg/dL (250-425); Unsaturated Iron Binding 305 (225-295)
[2025-02-10] MEDS: cefTRIAXone 1,000 MG in SODIUM CHLORIDE 0.9% (Popper) 50 ML 100 MG IV (08:40)
[2025-02-10] MEDS: DOXYCYCLINE INJ 100 MG in SODIUM CHLORIDE 0.9% (POP) 100 ML IV ×2 (08:42→21:05)
[2025-02-10] MEDS: INSULIN GLARGINE (Lantus) 5 UNIT/0.05 ML (PER 5 UNITS) 10 UNIT SC (08:43)
[2025-02-10] MEDS: Magnesium Sulfate 4 GM Ivpb 4 GM/50 ML BAG IV (08:43)
[2025-02-10] MEDS: amLODIPine BESYLATE 5 MG TABLET PO (08:43)
[2025-02-10 14:24] LABS: Hematocrit 22.9 % (41.0-53.0)
--- NOTE | 2025-02-10 14:38 | PC.SS ---
Rounding: IV ABX, monitoring BP
[2025-02-10 14:42] LABS: Hemoglobin 7.1 g/dL (13.5-16.0)
[2025-02-10 14:43] LABS: Cocci Serology, IgM Negative (Negative)
[2025-02-10 15:11] LABS: OBS Card Lot # 22002; OBS Developer Lot # 23003; OBS Performed By Ferrk; OBS QC OK? Yes; Occult Blood, Stool Negative (Negative)
[2025-02-10 16:33] LABS: Hematocrit 23.7 % (41.0-53.0)
[2025-02-10 16:36] LABS: Hemoglobin 7.4 g/dL (13.5-16.0)
[2025-02-10] MEDS: SODIUM CHLORIDE 0.9% 1000 ML 1,000 ML 100 ML IV (18:14)
--- NOTE | 2025-02-10 18:23 | PD.IMCONS ---
HPI Data of Consult Requesting Physician: Rafael Lewis MD Primary Care Provider: Farhat Ramirez MD Consult Narrative Reason for consult: Downtrending hemoglobin hematocrit 7.4/23.7 History of present illness: 69 mm to the ER for progressive shortness of breath flulike symptoms and fever Chest x-ray showed bilateral pneumonia and sodium on admission was 123 currently 128 BUN/creatinine was 22 and 1.4 Patient has a downtrending hemoglobin hematocrit initial presentation 8.6 and 28.5 currently down to 7.4 and 23.7 with a platelet count of 221,000 Stool occult blood is pending Patient denies any history of monica GI bleeding in the form of hematemesis melena or Bleeding per rectum cc:: cc: Rafael Lewis MD Review of Systems Review of Systems Systems Reviewed: All systems reviewed, normal except as documented Meds Home Medications and Allergies Allergies Allergy/AdvReac Type Severity Reaction Status Date / Time No Known Allergies Allergy Verified 02/09/25 13:35 Exam Vital Signs Temp Pulse Resp BP Pulse Ox O2 Del Method 97.0 F 88 22 H 113/69 94 L Room Air 02/10/25 16:00 02/10/25 16:00 02/10/25 16:00 02/10/25 16:00 02/10/25 16:00 02/10/25 16:00 Routine Respiratory Exam Comments: Decreased breath sounds at the bases bilaterally Routine Abdominal Exam Comments: Soft nontender Results Labs 02/11/25 04:50 02/11/25 04:50 Labs: Short CBC 02/10/25 02/10/25 02/10/25 Range/Units 04:26 14:07 16:03 WBC 7.4 (3.8-10.6) Thou/mm3 Hgb 7.3 L 7.1 L 7.4 L (13.5-16.0) g/dL Hct 23.4 L 22.9 L 23.7 L (41.0-53.0) % Plt Count 221 D (140-440) Thou/mm3 BMP 02/10/25 04:26 Sodium 128 L Potassium 4.3 D Chloride 99 Carbon Dioxide 19.7 L BUN 18 Creatinine 1.0 Glucose 172 H D Calcium 9.1 Liver Function 02/10/25 Range/Units 04:26 Total Bilirubin 0.5 (0.3-1.2) mg/dL AST 30 (0-34) U/L ALT 16 (10-49) U/L Alkaline Phosphatase 119 H D (46-116) U/L Albumin 3.1 L (3.4-4.8) gm/dL Assessment and Plan Additional Assessment & Plan Additional Plan: # Drop in hemoglobin hematocrit multifactorial Stool culture pending Other laboratory data pending Consent obtained for fiberoptic esophagogastroduodenoscopy with possible biopsy possible therapeutic intervention under intravenous moderate sedation scheduled for tomorrow Clear liquid diet and n.p.o. midnight tonight Other medical problems include Bilateral pneumonia Gross electrolyte abnormalities with hyponatremia improving Essential hypertension Hyperlipidemia Thank you very much for the opportunity to participate in care of this patient
[2025-02-10] MEDS: PANTOPRAZOLE INJ 40 MG VIAL IV (21:05)
[2025-02-11] VITALS (21 sets, daily range): BP systolic 110–147; BP diastolic 59–81; PULSE 59–94; RESP 13–22; TEMP 36–37.8; O2SAT 92–99; BMI 12.0
[2025-02-11] MEDS: ACETAMINOPHEN 325 MG TABLET 650 MG PO ×2 (02:58→20:26)
[2025-02-11] MEDS: SODIUM CHLORIDE 0.9% 1000 ML 1,000 ML 100 ML IV (03:00)
[2025-02-11 05:43] LABS: Basophils % (Auto) 0 % (0-2.5); Eosinophils # (Auto) 0.1 Thou/mm3 (0.0-0.5); Eosinophils % (Auto) 1 % (0-10); Hematocrit 25.9 % (41.0-53.0); Hemoglobin 9.1 g/dL (13.5-16.0); Immature Granulocytes % (Auto) 1 % (0-0); Immature Granulocytes Auto 0.12 Thou/mm3 (0.00-0.00); Lymphocytes # (Auto) 0.6 Thou/mm3 (1.0-4.8); Lymphocytes % (Auto) 5 % (10-50); Mean Corpuscular HGB Conc 35.1 g/dl (31.0-37.0); Mean Corpuscular Hemoglobin 24.4 pg (25.0-35.0); Mean Corpuscular Volume 69 fL (80-100); Monocytes # (Auto) 0.7 Thou/mm3 (0.0-0.8); Monocytes % (Auto) 6 % (0-12); Neutrophils # (Auto) 9.1 Thou/mm3 (1.8-7.7); Neutrophils % (Auto) 86 % (37-80); Nucleated Red Blood Cell % 0 /100 WBC (0); Platelet Count 205 Thou/mm3 (140-440); RDW Standard Deviation 52.7 fL (35.1-43.9); Red Blood Count 3.73 Miln/mm3 (4.50-5.90); White Blood Count 10.5 Thou/mm3 (3.8-10.6)
[2025-02-11 06:04] LABS: Alanine Aminotransferase 19 U/L (10-49); Albumin/Globulin Ratio 0.9 (1.2-2.2); Alkaline Phosphatase 107 U/L (46-116); Anion Gap 9 (7-16); Aspartate Amino Transferase 71 U/L (0-34); BUN/Creatinine Ratio 22 Ratio (12-20); Bilirubin,Total 1.7 mg/dL (0.3-1.2); Blood Urea Nitrogen 20 mg/dL (9-23); Calcium 9.2 mg/dL (8.3-10.6); Carbon Dioxide 18.2 mMol/L (20.0-31.0); Chloride 98 mMol/L (98-107); Creatinine (Component) 0.9 mg/dL (0.6-1.3); Estimated Creatinine Clearance 75.7 mL/min (>60); Globulin 3.3 gm/dL (2.3-3.5); Glucose 143 mg/dL (74-106); Magnesium 1.7 mg/dL (1.6-2.6); Osmolality,Calculated 256 (275-295); Phosphorous 2.4 mg/dL (2.4-5.1); Potassium 4.3 mMol/L (3.4-5.1); Sodium 125 mMol/L (136-145); Total Protein 6.3 gm/dL (5.7-8.2); eGFR > 60 See Note
--- NOTE | 2025-02-11 07:24 | PD.RESPRO ---
Documentation for date of: 02/11/25 Subjective Subjective Interval history: No overnight acute events Yesterday afternoon patient received 1 unit of PRBCs, hemoglobin posttransfusion was 9.1, otherwise this morning patient was anxious, complaining that he cannot move his legs and that he feels very weak, denied any other complaints at this moment like shortness of breath headache or any other associated symptoms. Urine was noticed to be greenish-brown on Ortega catheter bag. Patient remained hyponatremic Na+ 125 most likely hypotonic hyponatremia. Urine electrolytes, sodium and chloride were ordered, nephrology was consulted, will order as well LDH, direct and indirect bilirubin, CT head without contrast, liver ultrasound, direct Nelson, coagulation panel and fibrinogen to rule out hemolysis vs hemolytic anemia vs transfusion reaction?. Will continue to monitor closely Exam Vital Signs Temp Pulse Resp BP Pulse Ox O2 Del Method 100.0 F 93 13 142/77 H 92 L Room Air 02/11/25 04:00 02/11/25 04:00 02/11/25 04:00 02/11/25 04:00 02/11/25 04:00 02/11/25 04:00 Narrative Exam General: Anxious, pale, alert, interactive, AOx4, saturating well on room air HEENT: NC/AT, PERRL, EOMI, no tongue deviation or facial drooping, good conjugate gaze, pale mucosa, moist mucous membranes, oropharynx clear. Neck: Supple, No masses, No adenopathy, carotid pulse 2+ bilaterally without bruits, No JVD, normal range of motion. Chest: Symmetrical, atraumatic, and with equal expansion , Nontender on palpation no deformity and no crepitus. CVS: S1 and S2 present, Regular rate and rhythm, No murmurs, rubs or gallops perceived during auscultation. Lungs: Normal respiratory effort, decreased bilateral breath sounds, no wheezing, rhonchi or rales perceived during auscultation, No intercostal or subcostal retraction. Abdomen : Soft, no tenderness to palpation, no guarding ,no rebound, +BS, no organomegaly. Extremities: No edema, warm well perfused, decreased bilateral lower extremity sensation strength 2/5, bilateral upper extremities strength 3/5, cap refill less than 2, +2 dp equal bilaterally, able to wiggle the toes and upper extremities spontaneously Skin: Pale, intact, no rashes, no lesions, no erythema Neuro: AOx4, GCS 15 Psych: Anxious Objective Labs 02/12/25 05:21 02/12/25 05:21 Labs: Laboratory Results - last 24 hr 02/09/25 02/10/25 02/10/25 17:10 04:26 12:55 WBC RBC Hgb Hct MCV MCH MCHC RDW Std Deviation Plt Count Neut % (Auto) Lymph % (Auto) Martin % (Auto) Eos % (Auto) Baso % (Auto) Neut # (Auto) Lymph # (Auto) Martin # (Auto) Eos # (Auto) Baso # (Auto) Immature Gran # (Auto) Absolute Nucleated RBC Immature Gran % Nucleated RBC % Sodium Potassium Chloride Carbon Dioxide Anion Gap BUN Creatinine Estim Creat Clear Calc eGFR BUN/Creatinine Ratio Glucose Calculated Osmolality Calcium Corrected Calcium Phosphorus Magnesium Iron 34 L TIBC 339 Iron Saturation 10 L Unsat Iron Binding 305 H Ferritin 165 Total Bilirubin AST ALT Alkaline Phosphatase Total Protein Albumin Globulin Albumin/Globulin Ratio Stool Occult Blood Negative Coccidioides IgM Ab Negative Blood Type Antibody Screen Antibody Identification Crossmatch Blood Bank Wristband ID 02/10/25 02/10/25 02/11/25 14:07 16:03 04:50 WBC 10.5 D RBC 3.73 L Hgb 7.1 L 7.4 L 9.1 L D Hct 22.9 L 23.7 L 25.9 L MCV 69 L MCH 24.4 L MCHC 35.1 RDW Std Deviation 52.7 H Plt Count 205 Neut % (Auto) 86 H Lymph % (Auto) 5 L Martin % (Auto) 6 Eos % (Auto) 1 Baso % (Auto) 0 Neut # (Auto) 9.1 H Lymph # (Auto) 0.6 L Martin # (Auto) 0.7 Eos # (Auto) 0.1 Baso # (Auto) 0.0 Immature Gran # (Auto) 0.12 H Absolute Nucleated RBC 0.00 Immature Gran % 1 H Nucleated RBC % 0 Sodium 125 L Potassium 4.3 Chloride 98 Carbon Dioxide 18.2 L Anion Gap 9 BUN 20 Creatinine 0.9 Estim Creat Clear Calc 75.7 eGFR > 60 BUN/Creatinine Ratio 22 H Glucose 143 H Calculated Osmolality 256 L Calcium 9.2 Corrected Calcium 10.0 Phosphorus 2.4 Magnesium 1.7 Iron TIBC Iron Saturation Unsat Iron Binding Ferritin Total Bilirubin 1.7 H D AST 71 H ALT 19 Alkaline Phosphatase 107 Total Protein 6.3 Albumin 3.0 L Globulin 3.3 Albumin/Globulin Ratio 0.9 L Stool Occult Blood Coccidioides IgM Ab Blood Type O Positive Antibody Screen POSITIVE Antibody Identification Cold Antibody Crossmatch See Detail Blood Bank Wristband ID Yes Quality Measures Quality Measures none Advance care planning discussed with:: patient Assessment & Plan Assessment Current Active Medications: Generic Name Dose Route Start Last Admin Trade Name Freq PRN Reason Stop Dose Admin Acetaminophen 650 mg 02/09/25 16:42 Acetaminophen 325 Mg Tablet PO 03/11/25 16:41 Q6H PRN Fever >101.5 Acetaminophen 650 mg 02/09/25 16:52 02/11/25 02:58 Acetaminophen 325 Mg Tablet PO 03/11/25 16:51 650 mg Q6H PRN Administration PAIN SCALE 1-3 (mild Amlodipine Besylate 5 mg 02/10/25 09:00 02/10/25 08:43 Amlodipine Besylate 5 Mg Tablet PO 03/12/25 08:59 5 mg QDAY JOE Administration Dextrose 25 ml 02/09/25 16:56 Dextrose 50%-Water Inj 50 Ml Syringe IV 03/11/25 16:55 Q15MIN PRN BG 50-70 responsive npo pt Dextrose 50 ml 02/09/25 16:56 Dextrose 50%-Water Inj 50 Ml Syringe IV 03/11/25 16:55 Q15MIN PRN BG <50 OR BG <70 & pt unresponsive Glucagon 1 mg 02/09/25 16:56 Glucagon Inj 1 Mg Vial IM Q15MIN PRN BG <70, and no IV access Heparin Sodium (Porcine) 5,000 unit 02/09/25 22:00 02/10/25 15:04 Heparin Sod Inj 5000 Unit/Ml Vial SC 02/23/25 21:59 5,000 unit Q8HR JOE Administration Ceftriaxone Sodium 1,000 mg/ 50 mls @ 100 mls/hr 02/09/25 16:59 02/10/25 08:40 Sodium Chloride IV 02/16/25 16:58 100 mls/hr QDAY JOE Administration Doxycycline Hyclate 100 mg/ 100 mls @ 100 mls/hr 02/09/25 21:00 02/10/25 21:05 Sodium Chloride IV 02/16/25 20:59 100 mls/hr BID JOE Administration Sodium Chloride 1,000 mls @ 100 mls/hr 02/10/25 16:28 02/11/25 03:00 Ns IV 03/12/25 16:27 100 mls/hr .Q10H JOE Administration Insulin Glargine 10 unit 02/09/25 17:00 02/10/25 08:43 Insulin Glargine (Lantus) 5 Unit/0.05 Ml (Per 5 Units) SC 03/11/25 16:59 10 unit QDAY JOE Administration Insulin Human Lispro 0 unit 02/09/25 17:00 02/10/25 18:24 Insulin Lispro (Admelog) 1 Unit/0.01 Ml Unit SC 03/11/25 16:59 Not Given AC JOE Protocol Ondansetron HCl 4 mg 02/09/25 16:42 Ondansetron Inj 2 Mg/Ml Inj 2 Ml IV 03/11/25 16:41 Q6H PRN NAUSEA OR VOMITING Protocol Pantoprazole Sodium 40 mg 02/10/25 21:00 02/10/25 21:05 Pantoprazole Inj 40 Mg Vial IV 03/12/25 20:59 40 mg BID JOE Administration Plan Mr. Rodriguez is a 69-year-old male with past medical history significant for diabetes type 2 on metformin, hypertension, hyperlipidemia who came into the ED with generalized weakness and worsening upper respiratory infection symptoms and admitted to [facility] for further management of sepsis secondary to community-acquired pneumonia. #Hypotonic hyponatremia Possibly secondary to SIADH vs psychogenic polydipsia vs beer potomania vs Mateo's disease? Na+ 125 Nephrology was consulted we will appreciate recommendations ? IV fluids 150 cc/h ? Fluid restriction 1500 cc daily ? Follow-up urine electrolytes, sodium, chloride #Generalized weakness Possibly secondary to hemolysis vs transfusion reaction Patient stated that he feels very weak and that he is not able to move his legs with decreased sensation on bilateral lower extremities CT head without contrast was negative for hemorrhage, midline shift or mass effect ? Will continue to monitor #Hyperbilirubinemia #Hemolytic anemia Possibly secondary to drug-induced vs acute transfusion related hemolysis vs autoimmune vs paroxysmal nocturnal hemoglobin Liver ultrasound was unremarkable ? Follow-up Nelson ? Follow-up fibrinogen ? Follow-up direct and indirect and total bilirubin ? Follow-up haptoglobin ? Follow-up blood smear #Sepsis improving #Community-acquired bilateral pneumonia Patient came in with generalized weakness and worsening upper respiratory tract infection symptoms after failing outpatient antibiotics. Patient continues to have fevers, chills, productive cough, and stomach pain. Chest x-ray in the ED shows bilateral pneumonia. Physical exam significant for diminished lung sounds throughout all lung bases. Pro-Beltran elevated at 0.7. Lactic acid elevated at 3.4. Influenza and COVID-19 negative. -DC ceftriaxone and doxycicline - started leVofloxacin 750 mg q day -Pending cocci IgM/IgG -Pending blood cultures -Oxygen as needed as needed -Zofran as needed for nausea -Tylenol as needed for fevers #Rule out acute GI bleed Possibly secondary to PUD vs esophageal varices vs diverticulosis question Patient hemoglobin has been downtrending since admission hemoglobin 7.1 Gastroenterology was consulted we greatly appreciate recommendations ? Type and screen ? Transfuse if hemoglobin less than 7 ? EGD pending ? Follow-up H&H #Acute microcytic anemia #Iron deficiency anemia Possibly secondary to PUD vs anemia of chronic disease vs diverticulosis vs malignancy? Iron panel show iron deficiency anemia with iron sat 10% and iron of 34 mcg/dL Gastroenterology was consulted for further workup with greatly patient recommendations ? Follow-up CBC #Diabetes mellitus type 2 not on chronic insulin therapy Patient takes home metformin twice daily with meals. A1c 6.9 -Start sliding scale insulin -Continue Lantus 10 SQ daily -Hypoglycemic protocol in place #Essential Hypertension -Will resume patient's home medications pending med rec -Continue to monitor vital signs ?Started amlodipine 5 mg p.o. daily #Hyperlipidemia -Will resume patient's home medications pending med rec #Lactic acidosis resolved #Dehydration Lactic acid elevated at 3.4, most likely in the setting of sepsis and infection due to poor organ perfusion. Lactic acid downtrending to normal limits Health Maintenance: DVT prophylaxis: SCD Diet: Clear liquid diet/fluid restriction 1500 daily Ortega: No Lines: PIV Supplemental O2: As needed CODE STATUS: Full code Patient discussed with my attending Dr Joshua Portillo MD PGY-3 Disclaimer: Despite multiple revisions, due to the dictation software being used, the document bellow may not be free of grammatical errors including phonetic/typographic errors. However, this does not deter from our commitment to providing health care in the patient's best interest in mind. Attending Provider Attestation/Addendum I attest that I was physically present for the evaluation, physical examination, lab and imaging review of the patient with the residents. I discussed the case with the residents and agree with the findings and plans of care as documented above. At bedside today, patient complains of generalized weakness, being unable to lift his legs, anxiety. Denies any shortness of breath, fever, headache, loss of consciousness, numbness or tingling. Patient's hemoglobin improved to 9.1 after 1 unit of PRBC transfusion yesterday. At bedside, patient noted to have cola colored urine and has urinary bag. Sodium also decreased to 125. Patient also has elevated bilirubin at 1.7 today. Workup for hemolytic anemia was started, direct Nelson test came back negative, repeat bilirubin showed indirect hyperbilirubinemia, fibrinogen level was not low, LDH was significantly elevated. Urinalysis showed 3+ blood with only 6 RBCs. Findings highly suggestive of intravascular hemolysis. Differentials would include drug-induced hemolytic anemia, transfusion related hemolytic anemia less likely can include autoimmune hemolytic anemia, paroxysmal nocturnal hemoglobinuria. We will stop his Rocephin and doxycycline and switch him to levofloxacin. Also started on IV hydration at 150 cc/h. We will obtain nephrology consult for hyponatremia and cola colored urine. Awaiting haptoglobin and peripheral blood smear. Plan to discuss with hematology tomorrow based on lab results and patient condition. Gastroenterology following for low hemoglobin, patient planned for EGD. Rafael Lewis MD
[2025-02-11] MEDS: INSULIN LISPRO (AdmeLOG) 1 UNIT/0.01 ML UNIT SC (07:59)
[2025-02-11] MEDS: PANTOPRAZOLE INJ 40 MG VIAL IV ×2 (08:00→20:27)
[2025-02-11] MEDS: INSULIN GLARGINE (Lantus) 5 UNIT/0.05 ML (PER 5 UNITS) 10 UNIT SC (08:00)
[2025-02-11] MEDS: cefTRIAXone 1,000 MG in SODIUM CHLORIDE 0.9% (Popper) 50 ML 100 MG IV (08:00)
[2025-02-11] MEDS: DOXYCYCLINE INJ 100 MG in SODIUM CHLORIDE 0.9% (POP) 100 ML IV (08:00)
[2025-02-11] MEDS: Magnesium Sulfate 4 GM Ivpb 4 GM/50 ML BAG IV (08:00)
--- NOTE | 2025-02-11 08:14 | XR_ITS ---
Examination: Abdomen sonogram, Limited Date and time of exam: February 11, 2025 at 1021 hrs. Indications: Hyperbilirubinemia on laboratory examination today abdominal pain Technique: Real-time cabrera scale transabdominal sonographic images of the upper abdomen obtained. Findings: Normal gallbladder. Common bile duct 0.52 cm no stones Pancreas obscured by bowel gas Liver 17.0 cm no focal liver lesions Normal hepatopedal portal venous oh Patent IVC Impression: Normal gallbladder Common bile duct 0.52 cm Given the patient's laboratory values, consider MRCP follow-up
--- NOTE | 2025-02-11 08:52 | XR_ITS ---
Examination: CT brain head without contrast. 2-D sagittal coronal reconstructions Date and time of exam: February 11, 2025 at 1014 hrs. Indications: Weakness lethargy several days CTDI: vol (mGy):50.4 DLP: (mGycm):1055 Technique: Multiple CT axial sections of the brain have been obtained, 5 mm slice thickness. Contrast has not been administered. 2-D sagittal, coronal reconstructions have been obtained Low dose protocols were performed. One or more of the following dose reduction techniques were used; automated exposure control, adjustment of the mA and/or KV according to patient size, use of iterative reconstruction technique. Findings: No significant ventricular enlargement. Intra-axial or extra-axial hemorrhage density is not seen. No mass effect or midline shift Basal cisterns are not remarkable. Fourth ventricle is midline. Cranial vault intact. Impression: Negative for acute hemorrhage, mass effect or midline shift Advise clinical correlation and follow-up accordingly
--- NOTE | 2025-02-11 09:14 | PC.SS ---
rounding note: Patient to have a liver ultrasound and EGD. Consult GI . Patient from home. D/c plan remains to return home.
[2025-02-11 09:43] LABS: Collection Type, Urine Catheter; Squamous Epithelial Cell,Urine 0 /hpf (0-5)
[2025-02-11 10:00] LABS: Amorphous Crystals,Urine Present (Absent); Bilirubin,Urine Negative (Negative); Blood,Urine 3+ (Negative); Clarity,Urine Clear (Clear/Hazy); Color,Urine Yellow (Lt Yel-Yel); Glucose, Urine Negative (Negative); Ketones,Urine Trace (Negative); Leukocyte Esterase,Urine Negative (Negative); Nitrite,Urine Negative (Negative); PH,Urine 6.5 (5.0-7.0); Protein,Urine 1+ (Neg - Trace); RBC,Urine 6 /hpf (0-3); Specific Gravity,Urine 1.022 (1.001-1.035); WBC,Urine 1 /hpf (0-5)
[2025-02-11 10:15] LABS: Bilirubin,Direct 0.4 mg/dL (0.0-0.3); Bilirubin,Total 1.3 mg/dL (0.3-1.2); Creatine Kinase 75 U/L (34-171); LDH (Lactate Dehydrogenase) 888 U/L (120-246)
[2025-02-11 10:55] LABS: INR 1.2 (0.9-1.3); Partial Thromboplastin Time 27.1 Seconds (22.0-36.0); Prothrombin Time 12.5 Seconds (9.0-12.2)
[2025-02-11 11:10] LABS: Fibrinogen 409 mg/dL (175-375)
[2025-02-11 11:16] LABS: Path Review Blood Smear Sent to Pathologist
[2025-02-11 11:19] LABS: Potassium,Urine Random 25 mMol/L (12-62)
--- NOTE | 2025-02-11 11:58 | ESCONSULT_ITS ---
History of Present Illness Data of Consult Consult date: 02/11/25 Requesting Physician: Rafael Lewis MD Primary Care Provider: Farhat Ramirez MD Consult Narrative Reason for consult: DILMA, hyponatremia History of present illness: Informant son at bedside/skiver sock linings Mr. Rodriguez is a 69-year-old gentleman with past medical history significant for type 2 diabetes, hypertension, dyslipidemia presented to the emergency department with weakness cough and fatigue going on for the last 1 week. Patient went to [facility] and was given Augmentin, promethazine DM, inhalers. However he continued to have fever chills and productive sputum that he brought himself to the emergency department. In the ER vitals have been stable. Labs show hemoglobin significantly low at 8.6, sodium was 123, creatinine 1.4, Pro-Beltran 0.7, lactic acid 3.4, urinalysis shows a 1+ protein, no blood. Chest x-ray showed pneumonia. Sick EKG showed sinus tachycardia. In the emergency department patient did receive 2 L normal saline bolus, antibiotics. Repeat labs showed sodium 128, bicarbonate 19.7, creatinine improved to 1.0. His hemoglobin dropped to 7.1 needing 1 unit of blood transfusion. This morning his hemoglobin is 9.1, sodium 125. Urine showed significantly dark and [id number] colored and renal consultation was requested. Patient currently seen in medical floor. Entire family at bedside. Dr. Wei was called in for anemia. Hemolytic anemia workup in progress. Patient noted to have significant elevation in LDH. Repeat urinalysis showed 3+ blood with 6 RBCs. CK levels normal. cc:: cc: Rafael Lewis MD Review of Systems Review of Systems Narrative Review of Systems: CONSTITUTIONAL: Patient denies any fever, chills. Patient complaining of extreme fatigue. HEENT: Denies any visual disturbances or hearing problems. CARDIOVASCULAR: Patient denies any chest pain, shortness of breath, swelling in the lower extremities. PULMONARY: Patient complaining of shortness of breath, cough. GASTROINTESTINAL: Patient denies any abdominal pain, constipation, nausea, vomiting, diarrhea. GENITOURINARY: Patient denies any urinary symptoms of burning or frequency or hematuria, denies any form in the urine. SKIN: Denies any rash. MUSCULOSKELETAL: Denies any muscular skeletal problems of joint pains. NEUROLOGICAL: Denies any neurological problems of strokes, seizures or confusion. Denies any memory problems. PSYCHIATRIC: Denies any depression or anxiety. LYMPHATICS : No lymphadenopathy Past Medical History Past Medical History NEUROLOGIC: Negative Neurological Disorders or Seizures CARDIAC: Positive Cardiac Disorders, Hypercholesterolemia and Hypertension; Negative Congestive Heart Failure RESPIRATORY: Negative Respiratory Disorders or Chronic Obstructive Pulmonary Disease (COPD) GASTROINTESTINAL: Negative Gastrointestinal Disorders GENITOURINARY: Negative Genitourinary Disorders or Renal Disease MUSCULOSKELETAL: Negative Musculoskeletal Disorders ENT: Negative History of ENT Problems ENDOCRINE: Positive Endocrine Disorders and Diabetes Mellitus Type 2; Negative Diabetes Mellitus Type 1 HEMATOLOGIC: Negative Blood Disorders PSYCHO/SOCIAL: Positive Anxiety OTHER HISTORY: Positive Blood Transfusions; Negative Hospitalization, Autoimmune Disease, Down Syndrome, Developmental Delay, Shingles, Falls, Blood Transfusion Reaction, Anesthesia Reactions, MRSA, VRSA, Vancomycin-Resistant Enterococci, Clostridium Difficile or Cancer Social History SMOKING STATUS: Never smoker Past Medical History Comments PMH COMMENT: Past medical history: As mentioned above Past surgical history: None Allergies: NKDA Meds: Metformin, unable to remember other medications, and denies using insulin. Family history: Noncontributory Social history: Used to be a heavy smoker and drinker, but quit 13 years ago. Meds Home Medications and Allergies Allergies Allergy/AdvReac Type Severity Reaction Status Date / Time No Known Allergies Allergy Verified 02/09/25 13:35 Exam Vital Signs Temp Pulse Resp BP Pulse Ox O2 Del Method 36.8 C 86 18 112/68 93 L Room Air 02/11/25 08:00 02/11/25 08:00 02/11/25 08:00 02/11/25 08:00 02/11/25 08:00 02/11/25 08:00 Narrative Exam GENERAL APPEARANCE: Clinically looks hypovolemic. NECK: Neck supple, no JVD or bruit CARDIOVASCULAR: Heart regular, no murmurs LUNGS/CHEST: Chest clear to auscultation. No rales, rhonchi, wheezing ABDOMEN: Soft, nontender, nondistended. No masses. Normal bowel sounds. Urine extremely dark-colored in the bag. However in the tubing is clear EXTREMITIES: No edema, clubbing or cyanosis. SKIN: Skin exam normal without any rashes MUSCULOSKELETAL: Musculoskeletal exam normal -in bed PSYCHIATRIC: Normal mood, affect LYMPHATICS: No lymphadenopathy noted NEUROLOGICAL : Alert and awake- Results Labs 02/12/25 05:21 02/11/25 15:10 Labs: Short CBC 02/10/25 02/10/25 02/11/25 Range/Units 14:07 16:03 04:50 WBC 10.5 D (3.8-10.6) Thou/mm3 Hgb 7.1 L 7.4 L 9.1 L D (13.5-16.0) g/dL Hct 22.9 L 23.7 L 25.9 L (41.0-53.0) % Plt Count 205 (140-440) Thou/mm3 BMP 02/11/25 04:50 Sodium 125 L Potassium 4.3 Chloride 98 Carbon Dioxide 18.2 L BUN 20 Creatinine 0.9 Glucose 143 H Calcium 9.2 Cardiac Enzymes 02/11/25 Range/Units 09:25 Total Creatine Kinase 75 (34-171) U/L Liver Function 02/11/25 02/11/25 Range/Units 04:50 09:25 Total Bilirubin 1.7 H D 1.3 H (0.3-1.2) mg/dL Direct Bilirubin 0.4 H (0.0-0.3) mg/dL AST 71 H (0-34) U/L ALT 19 (10-49) U/L Alkaline Phosphatase 107 (46-116) U/L Albumin 3.0 L (3.4-4.8) gm/dL Urine 02/11/25 Range/Units 09:30 Urine Color Yellow (Lt Yel-Yel) Urine Clarity Clear (Clear/Hazy) Urine pH 6.5 (5.0-7.0) Ur Specific [place] 1.022 (1.001-1.035) Urine Protein 1+ A (Neg - Trace) Urine Glucose (UA) Negative (Negative) Assessment & Plan Assessment and plan (1) Acute renal failure (ARF): Status: Acute Assessment and plan: Acute renal failure secondary to prerenal azotemia. Renal ultrasound showed no hydronephrosis. Marked improvement and in fact normalized with IV fluids. Noted extremely dark urine with 3+ blood and 6 RBCs-no evidence of any rhabdo. Suspect hemoglobin pigment causing the discoloration. Patient seems to have hemolytic anemia with significant elevation in LDH, direct bilirubin. Reticulocyte count very high for anemia. Recommend hematology consult. (2) Acute hyponatremia: Status: Acute Assessment and plan: Hypovolemic hyponatremia. Patient also noted to have mild metabolic acidosis. Bicitra ordered. (3) Pneumonia: Status: Acute Assessment and plan: On antibiotics (4) Sepsis: Status: Acute Assessment and plan: Sepsis seems to be resolved (5) Anemia: Status: Acute Assessment and plan: Received 1 unit of blood transfusion. No evidence of any GI bleed. Suspect hemolytic anemia-question drug-induced. Workup in progress. Recommended heme consult. Additional Assessment & Plan Additional Plan: Thank you Rafael for allowing me to participate in the care of Mr. Ellis?
[2025-02-11] MEDS: SODIUM CHLORIDE 0.9% 1000 ML 1,000 ML 150 ML IV ×2 (12:04→23:15)
[2025-02-11 15:26] LABS: Hematocrit 25.5 % (41.0-53.0)
[2025-02-11 15:44] LABS: Hemoglobin 8.2 g/dL (13.5-16.0)
[2025-02-11 15:51] LABS: Cocci Serology, IgG Negative (Negative)
--- NOTE | 2025-02-11 16:11 | SUR.PHASEI ---
1611: Pt. wakes to name then drifts back to sleep, vitals stable, breathing unlabored, no complaint of pain or nausea, no dressing in place, no active bleed noted, report received from Josee LIND.
--- NOTE | 2025-02-11 16:37 | SUR.PHASEI ---
1637: Pt. AAOx4, vitals stable, breathing unlabored, no complaint of pain or nausea, no dressing in place, pt. tolerated bites of ice chips well, gave report to Vijay LNID prior to transfer to room 350.
--- NOTE | 2025-02-11 16:40 | SUR.PHASEI ---
attempted to call family to update them on pt. transfer back to room, no answer.
--- NOTE | 2025-02-11 16:49 | XR_ITS ---
Examination: Retroperitoneal ultrasound, complete Technique: Multiple high resolution grayscale images of the retroperitoneum obtained, including kidneys and bladder. Exam date and time:February 11 22,025, 1656 hrs. Indications: Hematuria with acute renal insufficiency on laboratory examination today Findings: Right kidney 12.8 cm cortex 2.0 cm Left kidney 12.3 cm cortex 2.3 cm No hydronephrosis or renal calculi Contracted urinary bladder Impression: Mild bilateral renal parenchymal scar formation No hydronephrosis or renal calculi
[2025-02-11 16:56] LABS: Reticulocyte % (Auto) 3.7 % (0.5-1.5); Reticulocyte Absolute Auto 137.6 Biln/L (25.0-75.0); Reticulocyte Hgb Content 32.8 pg (28.0-35.0)
[2025-02-11 17:05] LABS: Anion Gap 8 (7-16); BUN/Creatinine Ratio 21 Ratio (12-20); Blood Urea Nitrogen 19 mg/dL (9-23); Calcium 8.9 mg/dL (8.3-10.6); Calcium (Corrected) 9.7 mg/dL (8.5-10.1); Carbon Dioxide 18.5 mMol/L (20.0-31.0); Chloride 99 mMol/L (98-107); Creatine Kinase 85 U/L (34-171); Creatinine (Component) 0.9 mg/dL (0.6-1.3); Estimated Creatinine Clearance 75.7 mL/min (>60); Glucose 138 mg/dL (74-106); Osmolality,Calculated 255 (275-295); Phosphorous 3.2 mg/dL (2.4-5.1); Potassium 4.3 mMol/L (3.4-5.1); Sodium 125 mMol/L (136-145); Uric Acid 4.2 mg/dL (3.7-9.2); eGFR > 60 See Note
[2025-02-11] MEDS: NA SU/NAHCO3/KC/PEG (Golytely) 4,000 ML BTL 4000 ML PO (18:30)
[2025-02-11] MEDS: CITRIC ACID/SODIUM CITR 15 ML UDC (BICITRA) 30 ML PO (20:26)
[2025-02-11] MEDS: METOCLOPRAMIDE 5 MG TABLET PO (20:27)
[2025-02-11 21:11] LABS: Hematocrit 25.8 % (41.0-53.0); Hemoglobin 8.2 g/dL (13.5-16.0)
[2025-02-12] VITALS (22 sets, daily range): BP systolic 120–173; BP diastolic 56–104; PULSE 54–76; RESP 15–24; TEMP 36.1–36.7; O2SAT 94–98; BMI 27.3
[2025-02-12 04:12] LABS: Vitamin B12 1536 pg/mL (211-911)
[2025-02-12] MEDS: SODIUM CHLORIDE 0.9% 1000 ML 1,000 ML 150 ML IV ×3 (05:10→21:06)
[2025-02-12 06:23] LABS: Basophils % (Auto) 1 % (0-2.5); Eosinophils # (Auto) 0.1 Thou/mm3 (0.0-0.5); Eosinophils % (Auto) 1 % (0-10); Hematocrit 27.6 % (41.0-53.0); Immature Granulocytes % (Auto) 2 % (0-0); Lymphocytes # (Auto) 0.8 Thou/mm3 (1.0-4.8); Lymphocytes % (Auto) 12 % (10-50); Mean Corpuscular HGB Conc 30.8 g/dl (31.0-37.0); Mean Corpuscular Volume 71 fL (80-100); Monocytes # (Auto) 0.8 Thou/mm3 (0.0-0.8); Monocytes % (Auto) 12 % (0-12); Neutrophils # (Auto) 4.8 Thou/mm3 (1.8-7.7); Neutrophils % (Auto) 73 % (37-80); Nucleated Red Blood Cell % 0 /100 WBC (0); Platelet Count 179 Thou/mm3 (140-440); RDW Standard Deviation 55.1 fL (35.1-43.9); Red Blood Count 3.87 Miln/mm3 (4.50-5.90); White Blood Count 6.5 Thou/mm3 (3.8-10.6)
[2025-02-12 06:25] LABS: Hemoglobin 8.5 g/dL (13.5-16.0)
[2025-02-12 06:52] LABS: Alanine Aminotransferase 21 U/L (10-49); Albumin/Globulin Ratio 0.9 (1.2-2.2); Alkaline Phosphatase 101 U/L (46-116); Anion Gap 9 (7-16); Aspartate Amino Transferase 69 U/L (0-34); BUN/Creatinine Ratio 26 Ratio (12-20); Bilirubin,Total 1.1 mg/dL (0.3-1.2); Blood Urea Nitrogen 18 mg/dL (9-23); Calcium (Corrected) 9.8 mg/dL (8.5-10.1); Chloride 101 mMol/L (98-107); Creatinine (Component) 0.7 mg/dL (0.6-1.3); Estimated Creatinine Clearance 97.4 mL/min (>60); Globulin 3.4 gm/dL (2.3-3.5); Glucose 131 mg/dL (74-106); Magnesium 1.8 mg/dL (1.6-2.6); Osmolality,Calculated 259 (275-295); Phosphorous 2.7 mg/dL (2.4-5.1); Potassium 3.8 mMol/L (3.4-5.1); Sodium 127 mMol/L (136-145); Total Protein 6.4 gm/dL (5.7-8.2); eGFR > 60 See Note
[2025-02-12] MEDS: LEVOFLOXACIN/D5W 750MG IVPB 750 MG/150 ML BAG 100 MG IV (08:23)
[2025-02-12] MEDS: METOCLOPRAMIDE 5 MG TABLET PO ×2 (08:23→21:12)
[2025-02-12] MEDS: INSULIN LISPRO (AdmeLOG) 1 UNIT/0.01 ML UNIT SC (08:23)
[2025-02-12] MEDS: CITRIC ACID/SODIUM CITR 15 ML UDC (BICITRA) 30 ML PO ×2 (08:23→21:08)
[2025-02-12] MEDS: INSULIN GLARGINE (Lantus) 5 UNIT/0.05 ML (PER 5 UNITS) 10 UNIT SC (08:23)
[2025-02-12] MEDS: PANTOPRAZOLE INJ 40 MG VIAL IV ×2 (08:24→21:13)
[2025-02-12] MEDS: Magnesium Sulfate 4 GM Ivpb 4 GM/50 ML BAG IV (09:46)
[2025-02-12 10:08] LABS: Collection Type, Urine Catheter
--- NOTE | 2025-02-12 10:22 | PD.RESPRO ---
Documentation for date of: 02/12/25 Subjective Subjective Interval history: Mr. Rodriguez is a 69-year-old gentleman with past medical history significant for type 2 diabetes, hypertension, dyslipidemia presented to the emergency department with weakness cough and fatigue going on for the last 1 week. Patient went to [facility] and was given Augmentin, promethazine DM, inhalers. However he continued to have fever chills and productive sputum that he brought himself to the emergency department. In the ER vitals have been stable. Labs show hemoglobin significantly low at 8.6, sodium was 123, creatinine 1.4, Pro-Beltran 0.7, lactic acid 3.4, urinalysis shows a 1+ protein, no blood. Chest x-ray showed pneumonia. Sick EKG showed sinus tachycardia. In the emergency department patient did receive 2 L normal saline bolus, antibiotics. Repeat labs showed sodium 128, bicarbonate 19.7, creatinine improved to 1.0. His hemoglobin dropped to 7.1 needing 1 unit of blood transfusion. This morning his hemoglobin is 9.1, sodium 125. Urine showed significantly dark and [id number] colored and renal consultation was requested. Patient currently seen in medical floor. Entire family at bedside. Dr. Wei was called in for anemia. Hemolytic anemia workup in progress. Patient noted to have significant elevation in LDH. Repeat urinalysis showed 3+ blood with 6 RBCs. CK levels normal. 02/12/2025 Patient was seen and examined at bedside in the [facility] Reported that he is feeling overall well. Urine appears clear in the Ortega catheter and urine bag No acute overnight events. Vitals are stable. Labs showed hyponatremia with sodium 127, HCO3 17, BUN 18, Cr 0.7 Repeated urine analysis Exam Vital Signs Temp Pulse Resp BP Pulse Ox O2 Del Method O2 Flow Rate 97.0 F 66 18 158/75 H 96 Room Air 3 02/12/25 07:59 02/12/25 08:00 02/12/25 07:59 02/12/25 07:59 02/12/25 07:59 02/12/25 07:59 02/11/25 16:00 Narrative Exam General: Awake. HEENT: Normocephalic, atraumatic, mucous membranes moist. Heart: Regular rate and rhythm, no murmurs. Lungs: Clear to auscultation with no wheezing or crackles. Abdomen: Soft, nondistended, nontender, positive bowel sounds. ?No guarding or rebound tenderness. Neurologic: Alert and oriented x3, no gross neurological deficit, and patient able to move all 4 extremities. Extremities: No edema. Skin: No rash or ecchymoses. Objective Labs 02/13/25 04:10 02/13/25 04:10 Labs: Laboratory Results - last 24 hr 02/09/25 02/10/25 02/11/25 17:10 04:26 04:50 WBC RBC Hgb Hct MCV MCH MCHC RDW Std Deviation Plt Count Neut % (Auto) Lymph % (Auto) [place] % (Auto) Eos % (Auto) Baso % (Auto) Neut # (Auto) Lymph # (Auto) [place] # (Auto) Eos # (Auto) Baso # (Auto) Immature Gran # (Auto) Absolute Nucleated RBC Immature Gran % Nucleated RBC % Smear Path Review Sent to Pathologist Retic Count (auto) Absolute Retic Immature Retic Fraction Retic Hgb Content CHr PT INR APTT Fibrinogen Sodium Potassium Chloride Carbon Dioxide Anion Gap BUN Creatinine Estim Creat Clear Calc eGFR BUN/Creatinine Ratio Glucose Calculated Osmolality Uric Acid Calcium Corrected Calcium Phosphorus Magnesium Total Bilirubin AST ALT Alkaline Phosphatase Total Creatine Kinase Total Protein Albumin Globulin Albumin/Globulin Ratio Vitamin B12 1536 H Ur Random Sodium Ur Random Potassium Ur Random Chloride Coccidioides IgG Ab Negative Direct Antiglob Test 02/11/25 02/11/25 02/11/25 09:25 09:30 15:10 WBC RBC Hgb 8.2 L Hct 25.5 L MCV MCH MCHC RDW Std Deviation Plt Count Neut % (Auto) Lymph % (Auto) [place] % (Auto) Eos % (Auto) Baso % (Auto) Neut # (Auto) Lymph # (Auto) [place] # (Auto) Eos # (Auto) Baso # (Auto) Immature Gran # (Auto) Absolute Nucleated RBC Immature Gran % Nucleated RBC % Smear Path Review Retic Count (auto) 3.7 H Absolute Retic 137.6 H Immature Retic Fraction 39.0 H Retic Hgb Content CHr 32.8 PT 12.5 H INR 1.2 APTT 27.1 Fibrinogen 409 H Sodium 125 L Potassium 4.3 Chloride 99 Carbon Dioxide 18.5 L Anion Gap 8 BUN 19 Creatinine 0.9 Estim Creat Clear Calc 75.7 eGFR > 60 BUN/Creatinine Ratio 21 H Glucose 138 H Calculated Osmolality 255 L Uric Acid 4.2 Calcium 8.9 Corrected Calcium 9.7 Phosphorus 3.2 Magnesium Total Bilirubin AST ALT Alkaline Phosphatase Total Creatine Kinase 85 Total Protein Albumin 3.0 L Globulin Albumin/Globulin Ratio Vitamin B12 Ur Random Sodium 140.0 H Ur Random Potassium 25 Ur Random Chloride 114.0 Coccidioides IgG Ab Direct Antiglob Test Negative 02/11/25 02/12/25 20:49 05:21 WBC 6.5 RBC 3.87 L Hgb 8.2 L 8.5 L Hct 25.8 L 27.6 L MCV 71 L MCH 22.0 L MCHC 30.8 L RDW Std Deviation 55.1 H Plt Count 179 Neut % (Auto) 73 Lymph % (Auto) 12 [place] % (Auto) 12 Eos % (Auto) 1 Baso % (Auto) 1 Neut # (Auto) 4.8 Lymph # (Auto) 0.8 L [place] # (Auto) 0.8 Eos # (Auto) 0.1 Baso # (Auto) 0.0 Immature Gran # (Auto) 0.10 H Absolute Nucleated RBC 0.00 Immature Gran % 2 H Nucleated RBC % 0 Smear Path Review Retic Count (auto) Absolute Retic Immature Retic Fraction Retic Hgb Content CHr PT INR APTT Fibrinogen Sodium 127 L Potassium 3.8 D Chloride 101 Carbon Dioxide 17.0 L Anion Gap 9 BUN 18 Creatinine 0.7 Estim Creat Clear Calc 97.4 eGFR > 60 BUN/Creatinine Ratio 26 H Glucose 131 H Calculated Osmolality 259 L Uric Acid Calcium 9.0 Corrected Calcium 9.8 Phosphorus 2.7 Magnesium 1.8 Total Bilirubin 1.1 AST 69 H ALT 21 Alkaline Phosphatase 101 Total Creatine Kinase Total Protein 6.4 Albumin 3.0 L Globulin 3.4 Albumin/Globulin Ratio 0.9 L Vitamin B12 Ur Random Sodium Ur Random Potassium Ur Random Chloride Coccidioides IgG Ab Direct Antiglob Test Quality Measures Quality Measures none Advance care planning discussed with:: patient Assessment & Plan Assessment Current Active Medications: Generic Name Dose Route Start Last Admin Trade Name Freq PRN Reason Stop Dose Admin Acetaminophen 650 mg 02/09/25 16:42 Acetaminophen 325 Mg Tablet PO 03/11/25 16:41 Q6H PRN Fever >101.5 Acetaminophen 650 mg 02/09/25 16:52 02/11/25 20:26 Acetaminophen 325 Mg Tablet PO 03/11/25 16:51 650 mg Q6H PRN Administration PAIN SCALE 1-3 (mild Amlodipine Besylate 5 mg 02/10/25 09:00 02/10/25 08:43 Amlodipine Besylate 5 Mg Tablet PO 03/12/25 08:59 5 mg QDAY JOE Administration Citric Acid/Sodium Citrate 30 ml 02/11/25 21:00 02/12/25 08:23 Citric Acid/Sodium Citr 15 Ml Udc (Bicitra) PO 03/13/25 20:59 30 ml BID JOE Administration Dextrose 25 ml 02/09/25 16:56 Dextrose 50%-Water Inj 50 Ml Syringe IV 03/11/25 16:55 Q15MIN PRN BG 50-70 responsive npo pt Dextrose 50 ml 02/09/25 16:56 Dextrose 50%-Water Inj 50 Ml Syringe IV 03/11/25 16:55 Q15MIN PRN BG <50 OR BG <70 & pt unresponsive Glucagon 1 mg 02/09/25 16:56 Glucagon Inj 1 Mg Vial IM Q15MIN PRN BG <70, and no IV access Heparin Sodium (Porcine) 5,000 unit 02/09/25 22:00 02/10/25 15:04 Heparin Sod Inj 5000 Unit/Ml Vial SC 02/23/25 21:59 5,000 unit Q8HR JOE Administration Sodium Chloride 1,000 mls @ 150 mls/hr 02/11/25 11:03 02/12/25 05:10 Ns IV 03/13/25 11:02 150 mls/hr .Q6H40M JOE Administration Levofloxacin/Dextrose 750 mg in 150 mls @ 100 mls/hr 02/12/25 09:00 02/12/25 08:23 Levaquin Ivpb IV 02/19/25 08:59 100 mls/hr QDAY JOE Administration Magnesium Sulfate 4 gm in 50 mls @ 12.5 mls/hr 02/12/25 08:36 02/12/25 09:46 Magnesium Sulfate Ivpb IV 02/12/25 12:35 12.5 mls/hr X1 ONE Administration Insulin Glargine 10 unit 02/09/25 17:00 02/12/25 08:23 Insulin Glargine (Lantus) 5 Unit/0.05 Ml (Per 5 Units) SC 03/11/25 16:59 10 unit QDAY JOE Administration Insulin Human Lispro 0 unit 03/14/25 17:00 02/12/25 08:23 Insulin Lispro (Admelog) 1 Unit/0.01 Ml Unit SC 03/11/25 16:59 1 unit AC JOE Administration Protocol Metoclopramide HCl 5 mg 02/11/25 21:00 02/12/25 08:23 Metoclopramide 5 Mg Tablet PO 03/13/25 20:59 5 mg BID JOE Administration Ondansetron HCl 4 mg 02/09/25 16:42 Ondansetron Inj 2 Mg/Ml Inj 2 Ml IV 03/11/25 16:41 Q6H PRN NAUSEA OR VOMITING Protocol Pantoprazole Sodium 40 mg 02/10/25 21:00 02/12/25 08:24 Pantoprazole Inj 40 Mg Vial IV 03/12/25 20:59 40 mg BID JOE Administration Plan Mr. Rodriguez is a 69-year-old gentleman with past medical history significant for type 2 diabetes, hypertension, dyslipidemia presented to the emergency department with weakness cough and fatigue going on for the last 1 week and consulted for Acute kidney Injury # Hypoosmolar hyponatremia Likely due to severe dehydration and decreased oral intake -Sodium at the time of admission is 123 -On 02/12/2025, sodium is 127 Plan -Monitor sodium levels -Replete as needed # Non-anion gap metabolic acidosis Suspicion of RTA -Patient was found to have low bicarb level since the time of admission with normal anion gap -Urine anion gap is 51 Plan -Patient was started on sodium Bicitra # Acute kidney injury, resolved Likely pain in the setting of sepsis and dehydration -Patient is admitted to the hospital with complaints of cough, weakness and fatigue -Patient's baseline creatinine is not available -Creatinine at the time of admission on 02/09/2025 is 1.4 > 02/12/2025, BUN 18, creatinine 0.7 -Renal ultrasound ordered did not show any significant pathology -no hydronephrosis or ureteral calculi -Patient was found to have 3+ blood, 6 RBC on urine analysis after PRBC transfusion, which could be likely due to blood transfusion reaction Plan -Repeat urine analysis was ordered -Avoid nephrotoxic medication and renally dose medications #Lactic acidosis, resolved Lactic acid elevated at at the time of admission-3.4, came back to normal levels #Sepsis #Community-acquired bilateral pneumonia #Diabetes mellitus type 2 not on chronic insulin therapy #Essential Hypertension #Hyperlipidemia -rest of the medical conditions to be treated as per primary team Thank you for allowing us to involve in the care of the patient Patient plan of care was discussed with the attending physician, Dr. Mauro Brady, PGY1 Attending Provider Attestation/Addendum Patient seen and examined with resident physician Dr. Thomas. Note reviewed, agree with findings and recommendations. at bedside. Patient more alert and awake. Having breakfast. DILMA resolved. Hyponatremia still persist( ? Appropriate ADH response for hypovolemia). Non-anion gap metabolic acidosis --questionable etiology. Doubt renal tubular acidosis. Chloride normal. Repeat urinalysis showed specific gravity greater than 1030, blood 1+ with no RBCs. Dark discoloration of urine resolved. Added Bicitra. # Suspected transient hemolysis with No schistocytes- improving- ?? from blood transfusion. Spoke to -no schistocytes on peripheral smear. GI workup in progress.
[2025-02-12 10:27] LABS: Bilirubin,Urine Negative (Negative); Blood,Urine 1+ (Negative); Clarity,Urine Clear (Clear/Hazy); Color,Urine Lt Yellow (Lt Yel-Yel); Glucose, Urine 1+ (Negative); Ketones,Urine Negative (Negative); Leukocyte Esterase,Urine Negative (Negative); Nitrite,Urine Negative (Negative); Protein,Urine Negative (Neg - Trace); Specific Gravity,Urine >= 1.030 (1.001-1.035); Urobilinogen,Urine 0.2 mg/dL (0.0-1.0)
[2025-02-12 10:52] LABS: Bacteria,Urine Rare; Mucus,Urine 2+ /lpf; RBC,Urine 3 /hpf (0-3); Squamous Epithelial Cell,Urine 4 /hpf (0-5); WBC,Urine 2 /hpf (0-5)
--- NOTE | 2025-02-12 13:27 | ESPR_ITS ---
<Statement entered by Mary Portillo MD - 02/12/25 15:57> I discussed with and supervised the product management intern physician who took care of this patient. I personally saw and examined the patient and discussed the assessment and plan with the entire medicine team, including my attending Dr. Lewis, I agree with the assessment and plan as documented below Patient seen and examined at bedside today. Labs and imaging reviewed. No overnight acute events, Reticulocytes were elevated as well as LDH possibly secondary to hemolysis of unclear etiology differentials include drug-induced vs acute transfusion related hemolysis vs autoimmune vs paroxysmal nocturnal hemoglobin, Nephrology is following up the case recommend to start patient on Bicitra for acidosis, hematology was consulted be greatly appreciate recommendations, T. bili downtrend to 1.1, Nelson came back negative pending haptoglobin will continue IV fluids NS for hyponatremia. EGD showed erythematous mucosa in the antrum and biopsies were taken as well as possible motility disorder due to high content of food on the stomach, pending colonoscopy today. Mary Portillo MD PGY-3 Disclaimer: Despite multiple revisions, due to the dictation software being used, the document bellow may not be free of grammatical errors including phonetic/typographic errors. However, this does not deter from our commitment to providing health care in the patient's best interest in mind. Documentation for date of: 02/12/25 Subjective Subjective Interval history: Patient seen today at the bedside fine awake, alert, oriented x 3. No overnight events reported. Vital signs stable at this time. Labs at this time significant for increased hemoglobin after 1 PRBC transfusion yesterday. Spoke to Dr. White does not seem convinced hemolysis as possible etiology more likely to be sepsis related but will review the chart in the afternoon, did not want to be consulted. Patient had EGD found with gastric motility disorder, pending colonoscopy today with Dr. Wei, currently undergoing golytely prep. Exam Vital Signs Temp Pulse Resp BP Pulse Ox O2 Del Method O2 Flow Rate 97.4 F 64 18 134/68 H 96 Room Air 3 02/12/25 11:55 02/12/25 11:55 02/12/25 11:55 02/12/25 11:55 02/12/25 11:55 02/12/25 11:55 02/11/25 16:00 Narrative Exam Physical Exam GENERAL: NAD, AAOx3 HEENT: Moist mucosa. Eyes open, symmetrical, & clear CARDIO: Heart RRR, no obvious murmurs PULM: No noted coughing/dyspnea CTA B/L, no R/W/R GI: Abdomen soft, nondistended, no pain on palpation. BSx4 SKIN/MSK/EXT: No wounds/rashes/edema/amputations, no pain on palpation. Pedal pulses present B/L NEURO: AAOx3, no focal neuro deficits, able to move all 4 extremities Objective Labs 02/12/25 14:10 02/12/25 14:10 Labs: Laboratory Results - last 24 hr 02/09/25 02/10/25 02/11/25 17:10 04:26 15:10 WBC RBC Hgb 8.2 L Hct 25.5 L MCV MCH MCHC RDW Std Deviation Plt Count Neut % (Auto) Lymph % (Auto) [place] % (Auto) Eos % (Auto) Baso % (Auto) Neut # (Auto) Lymph # (Auto) [place] # (Auto) Eos # (Auto) Baso # (Auto) Immature Gran # (Auto) Absolute Nucleated RBC Immature Gran % Nucleated RBC % Retic Count (auto) 3.7 H Absolute Retic 137.6 H Immature Retic Fraction 39.0 H Retic Hgb Content CHr 32.8 Sodium 125 L Potassium 4.3 Chloride 99 Carbon Dioxide 18.5 L Anion Gap 8 BUN 19 Creatinine 0.9 Estim Creat Clear Calc 75.7 eGFR > 60 BUN/Creatinine Ratio 21 H Glucose 138 H Calculated Osmolality 255 L Uric Acid 4.2 Calcium 8.9 Corrected Calcium 9.7 Phosphorus 3.2 Magnesium Total Bilirubin AST ALT Alkaline Phosphatase Total Creatine Kinase 85 Total Protein Albumin 3.0 L Globulin Albumin/Globulin Ratio Vitamin B12 1536 H Ur Collection Type Urine Color Urine Clarity Urine pH Ur Specific [place] Urine Protein Urine Glucose (UA) Urine Ketones Urine Blood Urine Nitrite Urine Bilirubin Urine Urobilinogen (Auto) Ur Leukocyte Esterase Urine RBC Urine WBC Ur Squamous Epith Cells Urine Bacteria Urine Mucus Coccidioides IgG Ab Negative 02/11/25 02/12/25 02/12/25 20:49 05:21 09:48 WBC 6.5 RBC 3.87 L Hgb 8.2 L 8.5 L Hct 25.8 L 27.6 L MCV 71 L MCH 22.0 L MCHC 30.8 L RDW Std Deviation 55.1 H Plt Count 179 Neut % (Auto) 73 Lymph % (Auto) 12 [place] % (Auto) 12 Eos % (Auto) 1 Baso % (Auto) 1 Neut # (Auto) 4.8 Lymph # (Auto) 0.8 L [place] # (Auto) 0.8 Eos # (Auto) 0.1 Baso # (Auto) 0.0 Immature Gran # (Auto) 0.10 H Absolute Nucleated RBC 0.00 Immature Gran % 2 H Nucleated RBC % 0 Retic Count (auto) Absolute Retic Immature Retic Fraction Retic Hgb Content CHr Sodium 127 L Potassium 3.8 D Chloride 101 Carbon Dioxide 17.0 L Anion Gap 9 BUN 18 Creatinine 0.7 Estim Creat Clear Calc 97.4 eGFR > 60 BUN/Creatinine Ratio 26 H Glucose 131 H Calculated Osmolality 259 L Uric Acid Calcium 9.0 Corrected Calcium 9.8 Phosphorus 2.7 Magnesium 1.8 Total Bilirubin 1.1 AST 69 H ALT 21 Alkaline Phosphatase 101 Total Creatine Kinase Total Protein 6.4 Albumin 3.0 L Globulin 3.4 Albumin/Globulin Ratio 0.9 L Vitamin B12 Ur Collection Type Catheter Urine Color Lt Yellow Urine Clarity Clear Urine pH 6.0 Ur Specific [place] >= 1.030 Urine Protein Negative Urine Glucose (UA) 1+ A Urine Ketones Negative Urine Blood 1+ A Urine Nitrite Negative Urine Bilirubin Negative Urine Urobilinogen (Auto) 0.2 Ur Leukocyte Esterase Negative Urine RBC 3 Urine WBC 2 Ur Squamous Epith Cells 4 Urine Bacteria Rare Urine Mucus 2+ A Coccidioides IgG Ab Quality Measures Quality Measures none Advance care planning discussed with:: patient Assessment & Plan Assessment Current Active Medications: Generic Name Dose Route Start Last Admin Trade Name Ilir PRN Reason Stop Dose Admin Acetaminophen 650 mg 02/09/25 16:42 Acetaminophen 325 Mg Tablet PO 03/11/25 16:41 Q6H PRN Fever >101.5 Acetaminophen 650 mg 02/09/25 16:52 02/11/25 20:26 Acetaminophen 325 Mg Tablet PO 03/11/25 16:51 650 mg Q6H PRN Administration PAIN SCALE 1-3 (mild Amlodipine Besylate 5 mg 02/10/25 09:00 02/10/25 08:43 Amlodipine Besylate 5 Mg Tablet PO 03/12/25 08:59 5 mg QDAY JOE Administration Citric Acid/Sodium Citrate 30 ml 02/11/25 21:00 02/12/25 08:23 Citric Acid/Sodium Citr 15 Ml Udc (Bicitra) PO 03/13/25 20:59 30 ml BID JOE Administration Dextrose 25 ml 02/09/25 16:56 Dextrose 50%-Water Inj 50 Ml Syringe IV 03/11/25 16:55 Q15MIN PRN BG 50-70 responsive npo pt Dextrose 50 ml 02/09/25 16:56 Dextrose 50%-Water Inj 50 Ml Syringe IV 03/11/25 16:55 Q15MIN PRN BG <50 OR BG <70 & pt unresponsive Glucagon 1 mg 02/09/25 16:56 Glucagon Inj 1 Mg Vial IM Q15MIN PRN BG <70, and no IV access Heparin Sodium (Porcine) 5,000 unit 02/09/25 22:00 02/10/25 15:04 Heparin Sod Inj 5000 Unit/Ml Vial SC 02/23/25 21:59 5,000 unit Q8HR JOE Administration Sodium Chloride 1,000 mls @ 150 mls/hr 02/11/25 11:03 02/12/25 12:37 Ns IV 03/13/25 11:02 150 mls/hr .Q6H40M JOE Administration Levofloxacin/Dextrose 750 mg in 150 mls @ 100 mls/hr 02/12/25 09:00 02/12/25 08:23 Levaquin Ivpb IV 02/19/25 08:59 100 mls/hr QDAY JOE Administration Insulin Glargine 10 unit 02/09/25 17:00 02/12/25 08:23 Insulin Glargine (Lantus) 5 Unit/0.05 Ml (Per 5 Units) SC 03/11/25 16:59 10 unit QDAY JOE Administration Insulin Human Lispro 0 unit 02/09/25 17:00 02/12/25 11:26 Insulin Lispro (Admelog) 1 Unit/0.01 Ml Unit SC 03/11/25 16:59 Not Given AC [facility] Protocol Metoclopramide HCl 5 mg 02/11/25 21:00 02/12/25 08:23 Metoclopramide 5 Mg Tablet PO 03/13/25 20:59 5 mg BID JOE Administration Ondansetron HCl 4 mg 02/09/25 16:42 Ondansetron Inj 2 Mg/Ml Inj 2 Ml IV 03/11/25 16:41 Q6H PRN NAUSEA OR VOMITING Protocol Pantoprazole Sodium 40 mg 02/10/25 21:00 02/12/25 08:24 Pantoprazole Inj 40 Mg Vial IV 03/12/25 20:59 40 mg BID JOE Administration Plan 69-year-old male with past medical history significant for diabetes type 2 on metformin, hypertension, hyperlipidemia who came into the ED with generalized weakness and worsening upper respiratory infection symptoms and admitted to [facility] for further management of sepsis secondary to community-acquired pneumonia. #Hypotonic hyponatremia Possibly secondary to SIADH vs psychogenic polydipsia vs beer potomania vs Mateo's disease? Na+ 125 Nephrology was consulted we will appreciate recommendations ? IV fluids 150 cc/h ? Fluid restriction 1500 cc daily ? Follow-up urine electrolytes, sodium, chloride #Generalized weakness Possibly secondary to hemolysis vs transfusion reaction Patient stated that he feels very weak and that he is not able to move his legs with decreased sensation on bilateral lower extremities CT head without contrast was negative for hemorrhage, midline shift or mass effect ? Will continue to monitor #Hyperbilirubinemia #Hemolytic anemia Possibly secondary to drug-induced vs acute transfusion related hemolysis vs autoimmune vs paroxysmal nocturnal hemoglobin Liver ultrasound was unremarkable LDH elevated, reticulocyte count elevated, attempted to curbside, Dr. Mcneal, did not seem concerned about hemolysis states likely more related to sepsis, but will review chart. ? Follow-up Nelson ? Follow-up fibrinogen ? Follow-up direct and indirect and total bilirubin ? Follow-up haptoglobin ? Follow-up blood smear #Sepsis improving #Community-acquired bilateral pneumonia Patient came in with generalized weakness and worsening upper respiratory tract infection symptoms after failing outpatient antibiotics. Patient continues to have fevers, chills, productive cough, and stomach pain. Chest x-ray in the ED shows bilateral pneumonia. Physical exam significant for diminished lung sounds throughout all lung bases. Pro-Beltran elevated at 0.7. Lactic acid elevated at 3.4. Influenza and COVID-19 negative. was on ceftriaxone and doxycicline and were switched to levaquin Cocci negative, Blood cultures negative, Cocci negative - started leVofloxacin 750 mg q day -Pending cocci IgM/IgG -Pending blood cultures -Oxygen as needed as needed -Zofran as needed for nausea -Tylenol as needed for fevers #Rule out acute GI bleed #Gastric motility disorder Possibly secondary to PUD vs esophageal varices vs diverticulosis question Patient hemoglobin has been downtrending since admission hemoglobin 7.1 Gastroenterology was consulted we greatly appreciate recommendations EGD showed normal esophagus but likely motility disorder ? Transfuse if hemoglobin less than 7 ? Colonoscopy pending ? Golytely prep ? Reglan #Acute microcytic anemia #Iron deficiency anemia Possibly secondary to PUD vs anemia of chronic disease vs diverticulosis vs malignancy? Iron panel show iron deficiency anemia with iron sat 10% and iron of 34 mcg/dL Gastroenterology was consulted for further workup with greatly patient recommendations ? Follow-up CBC #Diabetes mellitus type 2 not on chronic insulin therapy Patient takes home metformin twice daily with meals. A1c 6.9 -Start sliding scale insulin -Continue Lantus 10 SQ daily -Hypoglycemic protocol in place #Essential Hypertension -Will resume patient's home medications pending med rec -Continue to monitor vital signs ?Started amlodipine 5 mg p.o. daily #Hyperlipidemia -Will resume patient's home medications pending med rec #Lactic acidosis resolved #Dehydration Lactic acid elevated at 3.4, most likely in the setting of sepsis and infection due to poor organ perfusion. Lactic acid downtrending to normal limits Patient discussed with my senior Dr. Lindsey LOPEZ PGY-[address] Joshua Ramirez MD PGY-1 Health Maintenance: DVT prophylaxis: SCD Diet: Clear liquid diet/fluid restriction 1500 daily Ortega: No Lines: PIV Supplemental O2: As needed CODE STATUS: Full code Disclaimer: Despite multiple revisions, due to the dictation software being used, the document bellow may not be free of grammatical errors including phonetic/typographic errors. However, this does not deter from our commitment to providing health care in the patient's best interest in mind. Attending Provider Attestation/Addendum I attest that I was physically present for the evaluation, physical examination, lab and imaging review of the patient with the residents. I discussed the case with the residents and agree with the findings and plans of care as documented above. At bedside today, patient continues to complain of generalized weakness, more pronounced on his legs. Denies any numbness or tingling. His urine has stopped to be cola colored and has become clear. Repeat urinalysis shows 1+ blood and 3 RBCs. Hemoglobin has stabilized at 8.5. Sodium level slightly improved at 127 this morning. Patient underwent EGD yesterday, showed erythematous mucosa in the antrum, large amount of food in the stomach suggestive of gastric motility disorder but no evidence of active bleeding. Started him on Reglan 5 mg every 6 hour. Patient planned for colonoscopy with GI. Awaiting haptoglobin and peripheral blood smear as a part of hemolytic anemia. If patient's leg weakness does not improve tomorrow, we will consider neurology consult. Rafael Lewis MD
[2025-02-12 14:37] LABS: Basophils % (Auto) 0 % (0-2.5); Eosinophils # (Auto) 0.1 Thou/mm3 (0.0-0.5); Eosinophils % (Auto) 1 % (0-10); Hematocrit 27.3 % (41.0-53.0); Immature Granulocytes % (Auto) 2 % (0-0); Immature Granulocytes Auto 0.12 Thou/mm3 (0.00-0.00); Lymphocytes # (Auto) 0.6 Thou/mm3 (1.0-4.8); Lymphocytes % (Auto) 10 % (10-50); Mean Corpuscular HGB Conc 31.1 g/dl (31.0-37.0); Mean Corpuscular Volume 71 fL (80-100); Monocytes # (Auto) 0.7 Thou/mm3 (0.0-0.8); Monocytes % (Auto) 11 % (0-12); Neutrophils # (Auto) 4.9 Thou/mm3 (1.8-7.7); Neutrophils % (Auto) 76 % (37-80); Nucleated Red Blood Cell # 0.03 Thou/mm3 (0.00-0.00); Nucleated Red Blood Cell % 1 /100 WBC (0); Platelet Count 197 Thou/mm3 (140-440); RDW Standard Deviation 53.9 fL (35.1-43.9); Red Blood Count 3.87 Miln/mm3 (4.50-5.90); White Blood Count 6.5 Thou/mm3 (3.8-10.6)
[2025-02-12 14:39] LABS: Hemoglobin 8.5 g/dL (13.5-16.0)
[2025-02-12 15:07] LABS: Alanine Aminotransferase 22 U/L (10-49); Albumin, Serum 2.9 gm/dL (3.4-4.8); Albumin/Globulin Ratio 0.9 (1.2-2.2); Alkaline Phosphatase 99 U/L (46-116); Anion Gap 9 (7-16); Aspartate Amino Transferase 69 U/L (0-34); BUN/Creatinine Ratio 23 Ratio (12-20); Bilirubin,Total 0.9 mg/dL (0.3-1.2); Blood Urea Nitrogen 14 mg/dL (9-23); Calcium 8.7 mg/dL (8.3-10.6); Calcium (Corrected) 9.6 mg/dL (8.5-10.1); Carbon Dioxide 17.3 mMol/L (20.0-31.0); Chloride 100 mMol/L (98-107); Creatinine (Component) 0.6 mg/dL (0.6-1.3); Estimated Creatinine Clearance 113.6 mL/min (>60); Globulin 3.4 gm/dL (2.3-3.5); Glucose 111 mg/dL (74-106); Osmolality,Calculated 254 (275-295); Potassium 3.7 mMol/L (3.4-5.1); Sodium 126 mMol/L (136-145); Total Protein 6.3 gm/dL (5.7-8.2); eGFR > 60 See Note
--- NOTE | 2025-02-12 15:31 | PC.SS ---
rounding note: Patient pending colonoscopy
[2025-02-12] MEDS: ferumoxytoL (NON-ESRD) 510 MG in SODIUM CHLORIDE 0.9% 100 ML 234 MG IV (17:43)
[2025-02-12 18:27] LABS: LDH (Lactate Dehydrogenase) 846 U/L (120-246)
[2025-02-12 18:48] LABS: Ferritin 246 ng/mL (10.5-307.3)
--- NOTE | 2025-02-12 19:48 | SUR.PHASEI ---
pt received from OR in recovery bay 1. pt awake and alert, breathing unlabored on room air. v/s stable. report received from Mely LIND.
--- NOTE | 2025-02-12 20:30 | SUR.PHASEI ---
pt awake and alert, breathing unlabored on room air. v/s stable. report called to Elizabeth LIND. pt will be transferred to room at this time.
[2025-02-13] VITALS: BP 132/69; PULSE 63; PULSE 66; RESP 22; TEMP 36.1; O2SAT 94
[2025-02-13] MEDS: ACETAMINOPHEN 325 MG TABLET 650 MG PO ×2 (01:06→18:53)
[2025-02-13] MEDS: SODIUM CHLORIDE 0.9% 1000 ML 1,000 ML 150 ML IV ×3 (03:40→18:54)
[2025-02-13 04:00] VITALS: BP 141/80; PULSE 61; PULSE 67; RESP 19; TEMP 36.2; O2SAT 95
[2025-02-13 05:24] LABS: Basophils % (Auto) 1 % (0-2.5); Eosinophils # (Auto) 0.1 Thou/mm3 (0.0-0.5); Eosinophils % (Auto) 1 % (0-10); Hematocrit 26.5 % (41.0-53.0); Immature Granulocytes % (Auto) 2 % (0-0); Immature Granulocytes Auto 0.14 Thou/mm3 (0.00-0.00); Lymphocytes # (Auto) 0.7 Thou/mm3 (1.0-4.8); Lymphocytes % (Auto) 10 % (10-50); Mean Corpuscular HGB Conc 32.1 g/dl (31.0-37.0); Mean Corpuscular Hemoglobin 22.1 pg (25.0-35.0); Mean Corpuscular Volume 69 fL (80-100); Monocytes # (Auto) 0.7 Thou/mm3 (0.0-0.8); Monocytes % (Auto) 10 % (0-12); Neutrophils # (Auto) 5.3 Thou/mm3 (1.8-7.7); Neutrophils % (Auto) 77 % (37-80); Nucleated Red Blood Cell % 0 /100 WBC (0); Platelet Count 223 Thou/mm3 (140-440); RDW Standard Deviation 52.3 fL (35.1-43.9); Red Blood Count 3.85 Miln/mm3 (4.50-5.90); White Blood Count 6.9 Thou/mm3 (3.8-10.6)
[2025-02-13 05:30] LABS: Hemoglobin 8.5 g/dL (13.5-16.0)
[2025-02-13 06:00] VITALS: BMI 28.0
[2025-02-13 06:05] LABS: Alanine Aminotransferase 27 U/L (10-49); Albumin, Serum 2.9 gm/dL (3.4-4.8); Albumin/Globulin Ratio 0.9 (1.2-2.2); Alkaline Phosphatase 96 U/L (46-116); Anion Gap 9 (7-16); Aspartate Amino Transferase 61 U/L (0-34); BUN/Creatinine Ratio 20 Ratio (12-20); Blood Urea Nitrogen 12 mg/dL (9-23); Calcium 8.8 mg/dL (8.3-10.6); Calcium (Corrected) 9.7 mg/dL (8.5-10.1); Carbon Dioxide 18.3 mMol/L (20.0-31.0); Chloride 98 mMol/L (98-107); Creatinine (Component) 0.6 mg/dL (0.6-1.3); Estimated Creatinine Clearance 113.6 mL/min (>60); Globulin 3.3 gm/dL (2.3-3.5); Glucose 132 mg/dL (74-106); Osmolality,Calculated 253 (275-295); Potassium 3.9 mMol/L (3.4-5.1); Sodium 125 mMol/L (136-145); Thyroid Stimulating Hormone 3.37 uIU/mL (0.55-4.78); Total Protein 6.2 gm/dL (5.7-8.2); eGFR > 60 See Note
[2025-02-13 08:00] VITALS: BP 153/80; PULSE 63; PULSE 65; RESP 21; TEMP 36.4; O2SAT 95
[2025-02-13] MEDS: PANTOPRAZOLE INJ 40 MG VIAL IV ×2 (08:42→20:27)
[2025-02-13] MEDS: INSULIN GLARGINE (Lantus) 5 UNIT/0.05 ML (PER 5 UNITS) 10 UNIT SC (08:43)
[2025-02-13] MEDS: METOCLOPRAMIDE 5 MG TABLET PO ×2 (08:43→20:27)
[2025-02-13] MEDS: SODIUM CHLORIDE 1 GM TABLET PO ×2 (08:43→20:27)
[2025-02-13] MEDS: LEVOFLOXACIN/D5W 750MG IVPB 750 MG/150 ML BAG 100 MG IV (08:44)
[2025-02-13] MEDS: CITRIC ACID/SODIUM CITR 15 ML UDC (BICITRA) 30 ML PO ×2 (09:11→20:27)
--- NOTE | 2025-02-13 09:31 | ESPR_ITS ---
Documentation for date of: 02/13/25 Subjective Subjective Interval history: Mr. Rodriguez is a 69-year-old gentleman with past medical history significant for type 2 diabetes, hypertension, dyslipidemia presented to the emergency department with weakness cough and fatigue going on for the last 1 week. Patient went to [facility] and was given Augmentin, promethazine DM, inhalers. However he continued to have fever chills and productive sputum that he brought himself to the emergency department. In the ER vitals have been stable. Labs show hemoglobin significantly low at 8.6, sodium was 123, creatinine 1.4, Pro-Beltarn 0.7, lactic acid 3.4, urinalysis shows a 1+ protein, no blood. Chest x-ray showed pneumonia. Sick EKG showed sinus tachycardia. In the emergency department patient did receive 2 L normal saline bolus, antibiotics. Repeat labs showed sodium 128, bicarbonate 19.7, creatinine improved to 1.0. His hemoglobin dropped to 7.1 needing 1 unit of blood transfusion. This morning his hemoglobin is 9.1, sodium 125. Urine showed significantly dark and [id number]-Oauy colored and renal consultation was requested. Patient currently seen in medical floor. Entire family at bedside. Dr. Wei was called in for anemia. Hemolytic anemia workup in progress. Patient noted to have significant elevation in LDH. Repeat urinalysis showed 3+ blood with 6 RBCs. CK levels normal. 02/13/2025 Patient was seen and examined bedside. No acute overnight events. Denies any other complaints. Still found to be hyponatremic with sodium 125. Added salt tablets 1 g p.o. twice daily Exam Vital Signs Temp Pulse Resp BP Pulse Ox O2 Del Method O2 Flow Rate 97.5 F 65 21 H 153/80 H 95 Room Air 3 02/13/25 08:00 02/13/25 08:00 02/13/25 08:00 02/13/25 08:00 02/13/25 08:00 02/13/25 08:00 02/12/25 19:39 Narrative Exam General: Awake. HEENT: Normocephalic, atraumatic, mucous membranes moist. Heart: Regular rate and rhythm, no murmurs. Lungs: Clear to auscultation with no wheezing or crackles. Abdomen: Soft, nondistended, nontender, positive bowel sounds. ?No guarding or rebound tenderness. Neurologic: Alert and oriented x3, no gross neurological deficit, and patient able to move all 4 extremities. Extremities: No edema. Skin: No rash or ecchymoses. Objective Labs 02/14/25 05:35 02/13/25 04:10 Labs: Laboratory Results - last 24 hr 02/12/25 02/12/25 02/13/25 09:48 14:10 04:10 WBC 6.5 6.9 RBC 3.87 L 3.85 L Hgb 8.5 L 8.5 L Hct 27.3 L 26.5 L MCV 71 L 69 L MCH 22.0 L 22.1 L MCHC 31.1 32.1 RDW Std Deviation 53.9 H 52.3 H Plt Count 197 223 Neut % (Auto) 76 77 Lymph % (Auto) 10 10 [place] % (Auto) 11 10 Eos % (Auto) 1 1 Baso % (Auto) 0 1 Neut # (Auto) 4.9 5.3 Lymph # (Auto) 0.6 L 0.7 L [place] # (Auto) 0.7 0.7 Eos # (Auto) 0.1 0.1 Baso # (Auto) 0.0 0.0 Immature Gran # (Auto) 0.12 H 0.14 H Absolute Nucleated RBC 0.03 H 0.00 Immature Gran % 2 H 2 H Nucleated RBC % 1 H 0 Sodium 126 L 125 L Potassium 3.7 3.9 Chloride 100 98 Carbon Dioxide 17.3 L 18.3 L Anion Gap 9 9 BUN 14 12 Creatinine 0.6 0.6 Estim Creat Clear Calc 113.6 113.6 eGFR > 60 > 60 BUN/Creatinine Ratio 23 H 20 Glucose 111 H 132 H Calculated Osmolality 254 L 253 L Calcium 8.7 8.8 Corrected Calcium 9.6 9.7 Ferritin 246 Total Bilirubin 0.9 1.0 AST 69 H 61 H ALT 22 27 Alkaline Phosphatase 99 96 Lactate Dehydrogenase 846 H Total Protein 6.3 6.2 Albumin 2.9 L 2.9 L Globulin 3.4 3.3 Albumin/Globulin Ratio 0.9 L 0.9 L TSH 3.37 Ur Collection Type Catheter Urine Color Lt Yellow Urine Clarity Clear Urine pH 6.0 Ur Specific [place] >= 1.030 Urine Protein Negative Urine Glucose (UA) 1+ A Urine Ketones Negative Urine Blood 1+ A Urine Nitrite Negative Urine Bilirubin Negative Urine Urobilinogen (Auto) 0.2 Ur Leukocyte Esterase Negative Urine RBC 3 Urine WBC 2 Ur Squamous Epith Cells 4 Urine Bacteria Rare Urine Mucus 2+ A Quality Measures Quality Measures none Advance care planning discussed with:: patient Assessment & Plan Assessment Current Active Medications: Generic Name Dose Route Start Last Admin Trade Name Freq PRN Reason Stop Dose Admin Acetaminophen 650 mg 02/09/25 16:42 Acetaminophen 325 Mg Tablet PO 03/11/25 16:41 Q6H PRN Fever >101.5 Acetaminophen 650 mg 02/09/25 16:52 02/13/25 01:06 Acetaminophen 325 Mg Tablet PO 03/11/25 16:51 650 mg Q6H PRN Administration PAIN SCALE 1-3 (mild Amlodipine Besylate 5 mg 02/10/25 09:00 02/10/25 08:43 Amlodipine Besylate 5 Mg Tablet PO 03/12/25 08:59 5 mg QDAY JOE Administration Citric Acid/Sodium Citrate 30 ml 02/11/25 21:00 02/13/25 09:11 Citric Acid/Sodium Citr 15 Ml Udc (Bicitra) PO 03/13/25 20:59 30 ml BID JOE Administration Dextrose 25 ml 02/09/25 16:56 Dextrose 50%-Water Inj 50 Ml Syringe IV 03/11/25 16:55 Q15MIN PRN BG 50-70 responsive npo pt Dextrose 50 ml 02/09/25 16:56 Dextrose 50%-Water Inj 50 Ml Syringe IV 03/11/25 16:55 Q15MIN PRN BG <50 OR BG <70 & pt unresponsive Glucagon 1 mg 02/09/25 16:56 Glucagon Inj 1 Mg Vial IM Q15MIN PRN BG <70, and no IV access Heparin Sodium (Porcine) 5,000 unit 02/09/25 22:00 02/10/25 15:04 Heparin Sod Inj 5000 Unit/Ml Vial SC 02/23/25 21:59 5,000 unit Q8HR JOE Administration Sodium Chloride 1,000 mls @ 150 mls/hr 02/11/25 11:03 02/13/25 03:40 Ns IV 03/13/25 11:02 150 mls/hr .Q6H40M JOE Administration Levofloxacin/Dextrose 750 mg in 150 mls @ 100 mls/hr 02/12/25 09:00 02/13/25 08:44 Levaquin Ivpb IV 02/19/25 08:59 100 mls/hr QDAY JOE Administration Insulin Glargine 10 unit 02/09/25 17:00 02/13/25 08:43 Insulin Glargine (Lantus) 5 Unit/0.05 Ml (Per 5 Units) SC 03/11/25 16:59 10 unit QDAY JOE Administration Insulin Human Lispro 0 unit 02/09/25 17:00 02/13/25 08:44 Insulin Lispro (Admelog) 1 Unit/0.01 Ml Unit SC 03/11/25 16:59 Not Given AC JOE Protocol Metoclopramide HCl 5 mg 02/11/25 21:00 02/13/25 08:43 Metoclopramide 5 Mg Tablet PO 03/13/25 20:59 5 mg BID JOE Administration Ondansetron HCl 4 mg 02/09/25 16:42 Ondansetron Inj 2 Mg/Ml Inj 2 Ml IV 03/11/25 16:41 Q6H PRN NAUSEA OR VOMITING Protocol Pantoprazole Sodium 40 mg 02/10/25 21:00 02/13/25 08:42 Pantoprazole Inj 40 Mg Vial IV 03/12/25 20:59 40 mg BID JOE Administration Sodium Chloride 1 gm 02/13/25 09:00 02/13/25 08:43 Sodium Chloride 1 Gm Tablet PO 03/15/25 08:59 1 gm BID JOE Administration Plan Mr. Rodriguez is a 69-year-old gentleman with past medical history significant for type 2 diabetes, hypertension, dyslipidemia presented to the emergency department with weakness cough and fatigue going on for the last 1 week and consulted for Acute kidney Injury # Hypoosmolar hyponatremia Likely due to severe dehydration and decreased oral intake vs approriate response to ADH -Sodium at the time of admission is 123 -On 02/13/2025, sodium is 125 Plan -Monitor sodium levels -Started on sodium tablets 1gm p.o. BID # Non-anion gap metabolic acidosis, resolving Suspicion of RTA -Patient was found to have low bicarb level since the time of admission with normal anion gap -Urine anion gap is 51 Plan -Patient was started on sodium Bicitra # Acute kidney injury, resolved Likely pain in the setting of sepsis and dehydration -Patient is admitted to the hospital with complaints of cough, weakness and fatigue -Patient's baseline creatinine is not available -Creatinine at the time of admission on 02/09/2025 is 1.4 > 02/12/2025, BUN 18, creatinine 0.7 -Renal ultrasound ordered did not show any significant pathology -no hydronephrosis or ureteral calculi -Patient was found to have 3+ blood, 6 RBC on urine analysis after PRBC transfusion, which could be likely due to blood transfusion reaction Plan -Repeat urine analysis was ordered -Avoid nephrotoxic medication and renally dose medications #Lactic acidosis, resolved Lactic acid elevated at at the time of admission-3.4, came back to normal levels #Sepsis #Community-acquired bilateral pneumonia #Diabetes mellitus type 2 not on chronic insulin therapy #Essential Hypertension #Hyperlipidemia -rest of the medical conditions to be treated as per primary team Thank you for allowing us to involve in the care of the patient Patient plan of care was discussed with the attending physician, Dr. Mauro Brady, PGY1 Attending Provider Attestation/Addendum Patient seen and examined with resident physician Dr. Thomas. Note reviewed, agree with findings and recommendations. at bedside. Patient more alert and awake. Having breakfast. DILMA resolved. Hyponatremia still persist( ? Appropriate ADH response for hypovolemia). Non-anion gap metabolic acidosis --questionable etiology. Doubt renal tubular acidosis. Chloride normal. Repeat urinalysis showed specific gravity greater than 1030, blood 1+ with no RBCs. Dark discoloration of urine resolved. Added Bicitra. Added salt tablets for persistent hyponatremia. # Suspected transient hemolysis with No schistocytes- improving- ?? from blood transfusion. Spoke to -no schistocytes on peripheral smear. GI workup in progress.
[2025-02-13] MEDS: INSULIN LISPRO (AdmeLOG) 1 UNIT/0.01 ML UNIT SC (11:42)
[2025-02-13 12:00] VITALS: BP 150/78; PULSE 62; PULSE 73; RESP 18; TEMP 36.6; O2SAT 95
--- NOTE | 2025-02-13 14:46 | ESPR_ITS ---
<Statement entered by Mary Portillo MD - 02/13/25 15:38> I discussed with and supervised the international flight attendant physician who took care of this patient. I personally saw and examined the patient and discussed the assessment and plan with the entire medicine team, including my attending Dr. Lewis, I agree with the assessment and plan as documented below Patient seen and examined at bedside today. Labs and imaging reviewed. Mary Portillo MD PGY-3 Disclaimer: Despite multiple revisions, due to the dictation software being used, the document bellow may not be free of grammatical errors including phonetic/typographic errors. However, this does not deter from our commitment to providing health care in the patient's best interest in mind. Documentation for date of: 02/13/25 Subjective Subjective Interval history: Patient seen today at the bedside fine awake, alert, oriented x 3. No overnight events reported. States continued weakness now in the upper extremities and complaining of shortness of breath. Neurology Dr Stein was consulted and will evaluate the patient and possibly require lumbar puncture. Vital signs stable at this time. Labs significant for hyponatremia, nephrology started patient on salt tablets. Patient had colonoscopy last night, internal hemorrhoids found. Will continue to monitor. Exam Vital Signs Temp Pulse Resp BP Pulse Ox O2 Del Method O2 Flow Rate 97.8 F 73 18 150/78 H 95 Room Air 3 02/13/25 12:00 02/13/25 12:00 02/13/25 12:00 02/13/25 12:00 02/13/25 12:00 02/13/25 12:00 02/12/25 19:39 Narrative Exam Physical Exam GENERAL: NAD, AAOx3 HEENT: Moist mucosa. Eyes open, symmetrical, & clear CARDIO: Heart RRR, no obvious murmurs PULM: No noted coughing/dyspnea CTA B/L, no R/W/R GI: Abdomen soft, nondistended, no pain on palpation. BSx4 SKIN/MSK/EXT: No wounds/rashes/edema/amputations, no pain on palpation. Pedal pulses present B/L NEURO: AAOx3,weakness in all 4 extremities Objective Labs 02/13/25 04:10 02/13/25 04:10 Labs: Laboratory Results - last 24 hr 02/10/25 02/12/25 02/13/25 16:03 14:10 04:10 WBC 6.9 RBC 3.85 L Hgb 8.5 L Hct 26.5 L MCV 69 L MCH 22.1 L MCHC 32.1 RDW Std Deviation 52.3 H Plt Count 223 Neut % (Auto) 77 Lymph % (Auto) 10 [place] % (Auto) 10 Eos % (Auto) 1 Baso % (Auto) 1 Neut # (Auto) 5.3 Lymph # (Auto) 0.7 L [place] # (Auto) 0.7 Eos # (Auto) 0.1 Baso # (Auto) 0.0 Immature Gran # (Auto) 0.14 H Absolute Nucleated RBC 0.00 Immature Gran % 2 H Nucleated RBC % 0 Sodium 126 L 125 L Potassium 3.7 3.9 Chloride 100 98 Carbon Dioxide 17.3 L 18.3 L Anion Gap 9 9 BUN 14 12 Creatinine 0.6 0.6 Estim Creat Clear Calc 113.6 113.6 eGFR > 60 > 60 BUN/Creatinine Ratio 23 H 20 Glucose 111 H 132 H Calculated Osmolality 254 L 253 L Calcium 8.7 8.8 Corrected Calcium 9.6 9.7 Ferritin 246 Total Bilirubin 0.9 1.0 AST 69 H 61 H ALT 22 27 Alkaline Phosphatase 99 96 Lactate Dehydrogenase 846 H Total Protein 6.3 6.2 Albumin 2.9 L 2.9 L Globulin 3.4 3.3 Albumin/Globulin Ratio 0.9 L 0.9 L TSH 3.37 Blood Type O Positive Antibody Screen POSITIVE Antibody Identification Cold Antibody Crossmatch See Detail Blood Bank Wristband ID Yes Quality Measures Quality Measures none Advance care planning discussed with:: patient Assessment & Plan Assessment Current Active Medications: Generic Name Dose Route Start Last Admin Trade Name Freq PRN Reason Stop Dose Admin Acetaminophen 650 mg 02/09/25 16:42 Acetaminophen 325 Mg Tablet PO 03/11/25 16:41 Q6H PRN Fever >101.5 Acetaminophen 650 mg 02/09/25 16:52 02/13/25 01:06 Acetaminophen 325 Mg Tablet PO 03/11/25 16:51 650 mg Q6H PRN Administration PAIN SCALE 1-3 (mild Amlodipine Besylate 5 mg 02/10/25 09:00 02/10/25 08:43 Amlodipine Besylate 5 Mg Tablet PO 03/12/25 08:59 5 mg QDAY JOE Administration Citric Acid/Sodium Citrate 30 ml 02/11/25 21:00 02/13/25 09:11 Citric Acid/Sodium Citr 15 Ml Udc (Bicitra) PO 03/13/25 20:59 30 ml BID JOE Administration Dextrose 25 ml 02/09/25 16:56 Dextrose 50%-Water Inj 50 Ml Syringe IV 03/11/25 16:55 Q15MIN PRN BG 50-70 responsive npo pt Dextrose 50 ml 02/09/25 16:56 Dextrose 50%-Water Inj 50 Ml Syringe IV 03/11/25 16:55 Q15MIN PRN BG <50 OR BG <70 & pt unresponsive Glucagon 1 mg 02/09/25 16:56 Glucagon Inj 1 Mg Vial IM Q15MIN PRN BG <70, and no IV access Heparin Sodium (Porcine) 5,000 unit 02/09/25 22:00 02/10/25 15:04 Heparin Sod Inj 5000 Unit/Ml Vial SC 02/23/25 21:59 5,000 unit Q8HR JOE Administration Sodium Chloride 1,000 mls @ 150 mls/hr 02/11/25 11:03 02/13/25 12:02 Ns IV 03/13/25 11:02 150 mls/hr .Q6H40M JOE Administration Levofloxacin/Dextrose 750 mg in 150 mls @ 100 mls/hr 02/12/25 09:00 02/13/25 08:44 Levaquin Ivpb IV 02/19/25 08:59 100 mls/hr QDAY JOE Administration Insulin Glargine 10 unit 02/09/25 17:00 02/13/25 08:43 Insulin Glargine (Lantus) 5 Unit/0.05 Ml (Per 5 Units) SC 03/11/25 16:59 10 unit QDAY JOE Administration Insulin Human Lispro 0 unit 02/09/25 17:00 02/13/25 11:42 Insulin Lispro (Admelog) 1 Unit/0.01 Ml Unit SC 03/11/25 16:59 1 unit AC JOE Administration Protocol Metoclopramide HCl 5 mg 02/11/25 21:00 02/13/25 08:43 Metoclopramide 5 Mg Tablet PO 03/13/25 20:59 5 mg BID JOE Administration Ondansetron HCl 4 mg 02/09/25 16:42 Ondansetron Inj 2 Mg/Ml Inj 2 Ml IV 03/11/25 16:41 Q6H PRN NAUSEA OR VOMITING Protocol Pantoprazole Sodium 40 mg 02/10/25 21:00 02/13/25 08:42 Pantoprazole Inj 40 Mg Vial IV 03/12/25 20:59 40 mg BID JOE Administration Sodium Chloride 1 gm 02/13/25 09:00 02/13/25 08:43 Sodium Chloride 1 Gm Tablet PO 03/15/25 08:59 1 gm BID JOE Administration Plan 69-year-old male with past medical history significant for diabetes type 2 on metformin, hypertension, hyperlipidemia who came into the ED with generalized weakness and worsening upper respiratory infection symptoms and admitted to [facility] for further management of sepsis secondary to community-acquired pneumonia. #Hypotonic hyponatremia Possibly secondary to SIADH vs psychogenic polydipsia vs beer potomania vs Mateo's disease? Na+ 125 Nephrology was consulted we will appreciate recommendations ? IV fluids 150 cc/h ? on salt tablets ? Fluid restriction 1500 cc daily ? Follow-up urine electrolytes, sodium, chloride #??GBS #Generalized weakness Possibly secondary to hemolysis vs transfusion reaction Patient stated that he feels very weak and that he is not able to move his legs with decreased sensation on bilateral lower extremities CT head without contrast was negative for hemorrhage, midline shift or mass effect Patient with generalized weakness since Wednesday started in the lower extremities however has since spread to the upper extremities and is stating having some bowel and urinary dysfunction today he is also reporting some shortness of breath spoke to neurologist Dr. Stein will evaluate the patient for possible lumbar puncture. ? Neuro consulted, appreciate recommendations ? Will continue to monitor #Hyperbilirubinemia #Hemolytic anemia Possibly secondary to drug-induced vs acute transfusion related hemolysis vs autoimmune vs paroxysmal nocturnal hemoglobin Liver ultrasound was unremarkable LDH elevated, reticulocyte count elevated, attempted to curbside, Dr. Mcneal, did not seem concerned about hemolysis states likely more related to sepsis, but will review chart. ? Follow-up Nelson ? Follow-up fibrinogen ? Follow-up direct and indirect and total bilirubin ? Follow-up haptoglobin ? Follow-up blood smear #Sepsis improving #Community-acquired bilateral pneumonia Patient came in with generalized weakness and worsening upper respiratory tract infection symptoms after failing outpatient antibiotics. Patient continues to have fevers, chills, productive cough, and stomach pain. Chest x-ray in the ED shows bilateral pneumonia. Physical exam significant for diminished lung sounds throughout all lung bases. Pro-Beltran elevated at 0.7. Lactic acid elevated at 3.4. Influenza and COVID-19 negative. was on ceftriaxone and doxycicline and were switched to levaquin Cocci negative, Blood cultures negative, Cocci negative - started leVofloxacin 750 mg q day -Pending cocci IgM/IgG -Pending blood cultures -Oxygen as needed as needed -Zofran as needed for nausea -Tylenol as needed for fevers #Rule out acute GI bleed #Gastric motility disorder Possibly secondary to PUD vs esophageal varices vs diverticulosis question Patient hemoglobin has been downtrending since admission hemoglobin 7.1 Gastroenterology was consulted we greatly appreciate recommendations EGD showed normal esophagus but likely motility disorder Colonoscopy showed hemorhoids ? Transfuse if hemoglobin less than 7 ? Reglan #Acute microcytic anemia #Iron deficiency anemia Possibly secondary to PUD vs anemia of chronic disease vs diverticulosis vs malignancy? Iron panel show iron deficiency anemia with iron sat 10% and iron of 34 mcg/dL Gastroenterology was consulted for further workup, appreciate recommendations ? Follow-up CBC #Diabetes mellitus type 2 not on chronic insulin therapy Patient takes home metformin twice daily with meals. A1c 6.9 -sliding scale insulin -Continue Lantus 10 SQ daily -Hypoglycemic protocol in place #Essential Hypertension -Will resume patient's home medications pending med rec -Continue to monitor vital signs ?Started amlodipine 5 mg p.o. daily #Hyperlipidemia -Will resume patient's home medications pending med rec #Lactic acidosis resolved #Dehydration Lactic acid elevated at 3.4, most likely in the setting of sepsis and infection due to poor organ perfusion. Lactic acid downtrending to normal limits Patient discussed with my senior Dr. Lindsey LOPEZ PGY-[address] Joshua Ramirez MD PGY-1 DVT prophylaxis: SCD Diet: Clear liquid diet/fluid restriction 1500 daily Ortega: No Lines: PIV Supplemental O2: As needed CODE STATUS: Full code Disclaimer: Despite multiple revisions, due to the dictation software being used, the document bellow may not be free of grammatical errors including phonetic/typographic errors. However, this does not deter from our commitment to providing health care in the patient's best interest in mind. Attending Provider Attestation/Addendum I attest that I was physically present for the evaluation, physical examination, lab and imaging review of the patient with the residents. I discussed the case with the residents and agree with the findings and plans of care as documented above. At bedside today, patient complains that his lower limb weakness has not resolved. He also states that now he is having incontinence, upper limb weakness and shortness of breath. Continues to saturate well on room air. With the ascending neurological symptoms, we will obtain neurology consult, for possible need of lumbar puncture to rule out GBS. Patient also continues to have hyponatremia, concerning for SIADH, we will continue with IV hydration, salt tablets, fluid restriction and we will obtain a.m. cortisol and plan for ACTH stimulation test if it is low. Patient's hemolytic anemia seems to be transient and is currently stable with stable hemoglobin at 8.5. Pending peripheral blood smear and haptoglobin level. Continues to be on levofloxacin for pneumonia. Patient underwent colonoscopy yesterday, showed hemorrhoids but no active bleeding. Continues to be on insulin regimen for diabetes. Rafael Lewis MD
--- NOTE | 2025-02-13 15:54 | PC.SS ---
Follow up note: SS met with patient and spouse at bedside to discuss d/c plans. SS used sign language interpreter. Patient worked with PT and was max assist. He is still not medically stable for d/c. SS discussed d/c options with patient /spouse. They live at [facility]. Patient was ambulatory prior to hospitalization. Patient is now non ambulatory. Patient and are both agreeable to short term rehab. Their preference is [facility]. SS will submit inquiry and PASRR. Neuro rec's pending
[2025-02-13 16:00] VITALS: BP 145/73; PULSE 67; PULSE 72; RESP 17; TEMP 36.2; O2SAT 96
--- NOTE | 2025-02-13 18:13 | PD.IMPROG ---
Documentation for date of: 02/13/25 Subjective Subjective Interval history: Patient evaluated WBC count 6.9 hemoglobin hematocrit 8.5 and 26.5 Colonoscopy showed internal hemorrhoids Upper endoscopy showed hemorrhagic gastritis Exam Vital Signs Temp Pulse Resp BP Pulse Ox O2 Del Method O2 Flow Rate 97.1 F 72 17 145/73 H 96 Room Air 3 02/13/25 16:00 02/13/25 16:00 02/13/25 16:00 02/13/25 16:00 02/13/25 16:00 02/13/25 16:00 02/12/25 19:39 Objective Labs 02/13/25 04:10 02/13/25 04:10 Labs: Laboratory Results - last 24 hr 02/10/25 02/12/25 02/13/25 16:03 14:10 04:10 WBC 6.9 RBC 3.85 L Hgb 8.5 L Hct 26.5 L MCV 69 L MCH 22.1 L MCHC 32.1 RDW Std Deviation 52.3 H Plt Count 223 Neut % (Auto) 77 Lymph % (Auto) 10 [place] % (Auto) 10 Eos % (Auto) 1 Baso % (Auto) 1 Neut # (Auto) 5.3 Lymph # (Auto) 0.7 L [place] # (Auto) 0.7 Eos # (Auto) 0.1 Baso # (Auto) 0.0 Immature Gran # (Auto) 0.14 H Absolute Nucleated RBC 0.00 Immature Gran % 2 H Nucleated RBC % 0 Sodium 125 L Potassium 3.9 Chloride 98 Carbon Dioxide 18.3 L Anion Gap 9 BUN 12 Creatinine 0.6 Estim Creat Clear Calc 113.6 eGFR > 60 BUN/Creatinine Ratio 20 Glucose 132 H Calculated Osmolality 253 L Calcium 8.8 Corrected Calcium 9.7 Ferritin 246 Total Bilirubin 1.0 AST 61 H ALT 27 Alkaline Phosphatase 96 Lactate Dehydrogenase 846 H Total Protein 6.2 Albumin 2.9 L Globulin 3.3 Albumin/Globulin Ratio 0.9 L TSH 3.37 Blood Type O Positive Antibody Screen POSITIVE Antibody Identification Cold Antibody Crossmatch See Detail Blood Bank Wristband ID Yes Impressions Impression: Diverticulosis left colon Internal hemorrhoids Hemorrhagic gastritis hemoglobin hematocrit around 8.5 and 26.5 Continue to monitor CBC Assessment & Plan A&P Narrative # Drop in hemoglobin hematocrit multifactorial Stool culture pending Other laboratory data pending Consent obtained for fiberoptic esophagogastroduodenoscopy with possible biopsy possible therapeutic intervention under intravenous moderate sedation scheduled for tomorrow Clear liquid diet and n.p.o. midnight tonight Other medical problems include Bilateral pneumonia Gross electrolyte abnormalities with hyponatremia improving Essential hypertension Hyperlipidemia Thank you very much for the opportunity to participate in care of this patient Time Spent With Patient Time: Total time spent is greater than 50% in coordination of care (as documented) at patient's floor/unit and/or counseling patient:
[2025-02-13 20:00] VITALS: BP 168/85; PULSE 78; RESP 22; TEMP 36.6; O2SAT 95
[2025-02-14] VITALS (12 sets, daily range): BP systolic 155–164; BP diastolic 81–93; PULSE 62–88; RESP 13–25; TEMP 36.1–36.7; O2SAT 92–98; BMI 25.4
--- NOTE | 2025-02-14 00:19 | PC.NURSE ---
Dr Salmon and team at bedside, assessing patient. Complaining of generalized pain, weakness progressing. Updated of patient difficulty swallowing, aspiration precaution observed. Neuro and respiratory status assess. will be place on NPO. RT also informed. will follow up other orders.
[2025-02-14] MEDS: ACETAMINOPHEN 325 MG TABLET 650 MG PO (00:49)
[2025-02-14] MEDS: SODIUM CHLORIDE 0.9% 1000 ML 1,000 ML 150 ML IV (01:42)
[2025-02-14 06:15] LABS: Basophils % (Auto) 1 % (0-2.5); Eosinophils # (Auto) 0.1 Thou/mm3 (0.0-0.5); Eosinophils % (Auto) 1 % (0-10); Hematocrit 27.8 % (41.0-53.0); Immature Granulocytes % (Auto) 4 % (0-0); Lymphocytes # (Auto) 0.8 Thou/mm3 (1.0-4.8); Lymphocytes % (Auto) 9 % (10-50); Mean Corpuscular HGB Conc 32.4 g/dl (31.0-37.0); Mean Corpuscular Hemoglobin 22.4 pg (25.0-35.0); Mean Corpuscular Volume 69 fL (80-100); Monocytes # (Auto) 0.8 Thou/mm3 (0.0-0.8); Monocytes % (Auto) 10 % (0-12); Neutrophils # (Auto) 6.2 Thou/mm3 (1.8-7.7); Neutrophils % (Auto) 76 % (37-80); Nucleated Red Blood Cell % 0 /100 WBC (0); Platelet Count 295 Thou/mm3 (140-440); RDW Standard Deviation 53.8 fL (35.1-43.9); Red Blood Count 4.02 Miln/mm3 (4.50-5.90); White Blood Count 8.2 Thou/mm3 (3.8-10.6)
[2025-02-14 06:47] LABS: Potassium,Urine Random 18 mMol/L (12-62)
[2025-02-14 07:01] LABS: Alanine Aminotransferase 42 U/L (10-49); Albumin, Serum 3.2 gm/dL (3.4-4.8); Albumin/Globulin Ratio 0.9 (1.2-2.2); Alkaline Phosphatase 120 U/L (46-116); Anion Gap 9 (7-16); Aspartate Amino Transferase 83 U/L (0-34); BUN/Creatinine Ratio 18 Ratio (12-20); Bilirubin,Total 1.1 mg/dL (0.3-1.2); Blood Urea Nitrogen 11 mg/dL (9-23); Calcium 9.2 mg/dL (8.3-10.6); Calcium (Corrected) 9.8 mg/dL (8.5-10.1); Carbon Dioxide 18.4 mMol/L (20.0-31.0); Chloride 91 mMol/L (98-107); Creatinine (Component) 0.6 mg/dL (0.6-1.3); Estimated Creatinine Clearance 104.9 mL/min (>60); Globulin 3.4 gm/dL (2.3-3.5); Glucose 131 mg/dL (74-106); Osmolality,Calculated 239 (275-295); Potassium 4.1 mMol/L (3.4-5.1); Total Protein 6.6 gm/dL (5.7-8.2); eGFR > 60 See Note
[2025-02-14 07:10] LABS: Sodium 118 mMol/L (136-145)
[2025-02-14] MEDS: LEVOFLOXACIN/D5W 750MG IVPB 750 MG/150 ML BAG 100 MG IV (08:11)
[2025-02-14] MEDS: INSULIN GLARGINE (Lantus) 5 UNIT/0.05 ML (PER 5 UNITS) 10 UNIT SC (08:12)
[2025-02-14] MEDS: ACETAMINOPHEN IVPB 1,000 MG/100 ML VIAL 250 MG IV (08:23)
[2025-02-14] MEDS: PANTOPRAZOLE INJ 40 MG VIAL IV ×2 (08:23→22:08)
--- NOTE | 2025-02-14 09:06 | PC.NURSE ---
Lumbar puncture performed at bedside by neurologist Dr. Stein
[2025-02-14 09:15] LABS: Coccid Serology, CF CSF (UCD)* See Sep Rpt; Misc Send Out* See Sep Rpt
[2025-02-14 09:27] LABS: Sodium 116 mMol/L (136-145)
[2025-02-14 09:35] LABS: CSF White Blood Cell 19 /cmm
[2025-02-14 09:51] LABS: Glucose,CSF 75 mg/dL (40-70); Protein Total,CSF 95 mg/dL (8-32)
[2025-02-14 09:54] LABS: CSF Cell Count Tube # Tube # 4; CSF Color Colorless (Colorless); CSF Mononuclear 84 %
[2025-02-14] MEDS: DiphenhydrAMINE INJ 50 MG/ML VIAL 25 MG IV (10:16)
[2025-02-14] MEDS: HEPARIN SOD INJ 5000 UNIT/ML VIAL SC ×3 (10:18→22:08)
[2025-02-14 10:36] LABS: CSF Gram Stain Alert Gram Stain Completed
--- NOTE | 2025-02-14 10:40 | XR_ITS ---
Examination: CT lumbar spine, without contrast. 2-D sagittal reconstructions. 2-D coronal reconstructions. 3-D reconstructions. Date and time of exam:February 14, 2025 12:35 PM INDICATIONS: Onset low back pain beginning one week ago CTDI: vol (mGy):2.09 DLP: (mGycm):600 Technique: Multiple 1.25 mm axial sections of the lumbar spine without intravenous contrast have been obtained. 2-D sagittal and coronal reconstructions have been obtained. 3-D reconstructions have been obtained. Low dose protocols were performed. One or more of the following dose reduction techniques were used; automated exposure control, adjustment of the mA and/or KV according to patient size, use of iterative reconstruction technique. Findings: Moderate osteopenia. No lumbar fracture. Moderate disc narrowing posteriorly L5-S1. No spondylolisthesis. Lumbar pedicles, laminae, transverse and posterior spinous processes are intact L5-S1 4 mm central lumbar disc bulge contiguous with the right and left S1 nerve roots, extending to the left foramen with moderate left L5 ganglionic compression L4-L5 2 mm central lumbar disc bulge L3-L4 no disc protrusion L2-L3 no disc protrusion L1-L2 no disc protrusion IMPRESSION: Moderate distention posteriorly L5-S1 L5-S1 4 mm central lumbar disc bulge contiguous with the right and left S1 nerve roots, extending to the left foramen with moderate left L5 ganglionic compression L4-L5 2 mm central lumbar disc bulge Consider MRI lumbar spine without contrast follow-up
[2025-02-14 10:45] LABS: CSF Red Blood Cell 40 /cmm; CSF, Appearance Clear (Clear)
[2025-02-14 10:46] LABS: CSF Polynuclear WBC 16 %
[2025-02-14] MEDS: SODIUM CHLORIDE 3%(Hypertonic) 500 ML in PRE-MIXED 1 BAG 40 ML IV (11:03)
[2025-02-14] MEDS: IMMUNE GLOB GA CA IV (11:04)
[2025-02-14] MEDS: PRE MIXED IV (11:04)
--- NOTE | 2025-02-14 11:11 | PCS.ST ---
NPO following lumbar puncture. DIRECTOR OF PUBLIC RELATIONS will return for bedside swallow evaluation
--- NOTE | 2025-02-14 12:30 | ESPR_ITS ---
<Statement entered by Aye Stein MD - 02/15/25 05:50> Patient seen and examined at bedside. Overnight, patient noted to start complaining of difficulty swallowing and breathing. NIF early this morning was 25. Patient states that he feels more pain and worsening bilateral weakness. Neurology performed bedside LP which showed elevated protein and glucose with a WBC of 19 with more mononuclear predominance. Patient was later transferred to telemetry, and started on IVIG for possible GBS, and also started on hypertonic saline due to patient's sodium level of 118. NIF 12 hours is around 20. Will monitor patient's sodium level every 3 hours and NIF every 4 hours. I discussed with and supervised the technical support internship physician who took care of this patient. I personally saw and examined the patient and discussed the assessment and plan with the entire medicine team, including my attending , I agree with most of the assessment and plan as documented below Aye Stein M.D. PGY-2 Disclaimer: Despite multiple revisions, due to the dictation software being used, the document bellow may not be free of grammatical errors including phonetic/typographic errors. However, this does not deter from our commitment to providing health care in the patient's best interest in mind. <Statement entered by Mary Portillo MD - 02/14/25 19:05> I discussed with and supervised the technical support internship physician who took care of this patient. I personally saw and examined the patient and discussed the assessment and plan with the entire medicine team, including my attending Dr. Mckeon, I agree with the assessment and plan as documented below Patient seen and examined at bedside today. Labs and imaging reviewed. This morning the bedside patient patient stated that continued to present severe weakness, endorse hip pain bilateral, patient underwent LP this morning with neurologist, per neurology recommendation we will start IVIG for possible GBS, as well as CSF analysis. Will continue to monitor NIF every 4 hours, patient received IV hypertonic saline per nephrology recommendations due to hyponatremia we will continue to monitor sodium checks every 3 hours. Mary Portillo MD PGY-3 Disclaimer: Despite multiple revisions, due to the dictation software being used, the document bellow may not be free of grammatical errors including phonetic/typographic errors. However, this does not deter from our commitment to providing health care in the patient's best interest in mind. Documentation for date of: 02/14/25 Subjective Subjective Interval history: Patient seen today at the bedside found awake, alert, oriented x 3. Overnight was reported the patient has been having difficulty swallowing and is becoming short of breath. Labs significant for decreasing sodium levels. Spoke to nephrology who recommended to put the patient on hypertonic saline and every 3 hours sodium checks. Neurology evaluated the patient performed lumbar puncture, CSF studies pending. Recommended starting IVIG for the patient's continued progressive weakness. Lumbar CT was also ordered and showed Moderate distention posteriorly L5-S1, L5-S1 4 mm central lumbar disc bulge contiguous with the right and left S1 nerve roots, extending to the left foramen with moderate left L5 ganglionic compression, L4-L5 2 mm central lumbar disc bulge. MRI brain w/wo contrast order, will follow up on results Exam Vital Signs Temp Pulse Resp BP Pulse Ox O2 Del Method O2 Flow Rate 98.1 F 74 13 163/84 H 95 Room Air 3 02/14/25 08:00 02/14/25 08:00 02/14/25 08:00 02/14/25 08:00 02/14/25 08:00 02/14/25 08:00 02/12/25 19:39 Narrative Exam Physical Exam GENERAL: NAD, AAOx3 HEENT: Moist mucosa. Eyes open, symmetrical, & clear CARDIO: Heart RRR, no obvious murmurs PULM: No noted coughing/dyspnea CTA B/L, no R/W/R GI: Abdomen soft, nondistended, no pain on palpation. BSx4 SKIN/MSK/EXT: No wounds/rashes/edema/amputations, no pain on palpation. Pedal pulses present B/L NEURO: AAOx3,weakness in all 4 extremities Objective Labs 02/15/25 05:24 02/15/25 05:24 Labs: Laboratory Results - last 24 hr 02/10/25 02/14/25 02/14/25 16:03 05:10 05:35 WBC 8.2 RBC 4.02 L Hgb 9.0 L Hct 27.8 L MCV 69 L MCH 22.4 L MCHC 32.4 RDW Std Deviation 53.8 H Plt Count 295 D Neut % (Auto) 76 Lymph % (Auto) 9 L Beauregard % (Auto) 10 Eos % (Auto) 1 Baso % (Auto) 1 Neut # (Auto) 6.2 Lymph # (Auto) 0.8 L Bea[place]gard # (Auto) 0.8 Eos # (Auto) 0.1 Baso # (Auto) 0.0 Immature Gran # (Auto) 0.30 H Absolute Nucleated RBC 0.00 Immature Gran % 4 H Nucleated RBC % 0 Sodium 118 L* Potassium 4.1 Chloride 91 L Carbon Dioxide 18.4 L Anion Gap 9 BUN 11 Creatinine 0.6 Estim Creat Clear Calc 104.9 eGFR > 60 BUN/Creatinine Ratio 18 Glucose 131 H Calculated Osmolality 239 L Calcium 9.2 Corrected Calcium 9.8 Total Bilirubin 1.1 AST 83 H ALT 42 Alkaline Phosphatase 120 H D Total Protein 6.6 Albumin 3.2 L Globulin 3.4 Albumin/Globulin Ratio 0.9 L Ur Random Sodium 167.0 H Ur Random Potassium 18 Ur Random Chloride 138.0 H CSF Appearance CSF Color CSF WBC CSF RBC CSF Cell Count Tube # CSF Mononuclear WBCs CSF Polynuclear WBCs CSF Glucose CSF Total Protein Crossmatch See Detail 02/14/25 02/14/25 08:40 09:03 WBC RBC Hgb Hct MCV MCH MCHC RDW Std Deviation Plt Count Neut % (Auto) Lymph % (Auto) Beauregard % (Auto) Eos % (Auto) Baso % (Auto) Neut # (Auto) Lymph # (Auto) Beauregard # (Auto) Eos # (Auto) Baso # (Auto) Immature Gran # (Auto) Absolute Nucleated RBC Immature Gran % Nucleated RBC % Sodium 116 L* Potassium Chloride Carbon Dioxide Anion Gap BUN Creatinine Estim Creat Clear Calc eGFR BUN/Creatinine Ratio Glucose Calculated Osmolality Calcium Corrected Calcium Total Bilirubin AST ALT Alkaline Phosphatase Total Protein Albumin Globulin Albumin/Globulin Ratio Ur Random Sodium Ur Random Potassium Ur Random Chloride CSF Appearance Clear CSF Color Colorless CSF WBC 19 CSF RBC 40 CSF Cell Count Tube # Tube # 4 CSF Mononuclear WBCs 84 CSF Polynuclear WBCs 16 CSF Glucose 75 H CSF Total Protein 95 H Crossmatch Quality Measures Quality Measures none Advance care planning discussed with:: patient Assessment & Plan Assessment Current Active Medications: Generic Name Dose Route Start Last Admin Trade Name Freq PRN Reason Stop Dose Admin Acetaminophen 650 mg 02/09/25 16:42 Acetaminophen 325 Mg Tablet PO 03/11/25 16:41 Q6H PRN Fever >101.5 Acetaminophen 650 mg 02/09/25 16:52 02/13/25 18:53 Acetaminophen 325 Mg Tablet PO 03/11/25 16:51 650 mg Q6H PRN Administration PAIN SCALE 1-3 (mild Citric Acid/Sodium Citrate 30 ml 02/11/25 21:00 02/14/25 08:10 Citric Acid/Sodium Citr 15 Ml Udc (Bicitra) PO 03/13/25 20:59 Not Given BID JOE Dextrose 25 ml 02/09/25 16:56 Dextrose 50%-Water Inj 50 Ml Syringe IV 03/11/25 16:55 Q15MIN PRN BG 50-70 responsive npo pt Dextrose 50 ml 02/09/25 16:56 Dextrose 50%-Water Inj 50 Ml Syringe IV 03/11/25 16:55 Q15MIN PRN BG <50 OR BG <70 & pt unresponsive Glucagon 1 mg 02/09/25 16:56 Glucagon Inj 1 Mg Vial IM Q15MIN PRN BG <70, and no IV access Heparin Sodium (Porcine) 5,000 unit 02/14/25 09:15 02/14/25 10:18 Heparin Sod Inj 5000 Unit/Ml Vial SC 02/28/25 09:14 5,000 unit Q8HR JOE Administration Levofloxacin/Dextrose 750 mg in 150 mls @ 100 mls/hr 02/12/25 09:00 02/14/25 08:11 Levaquin Ivpb IV 02/19/25 08:59 100 mls/hr QDAY JOE Administration Sodium Chloride 500 ml/ IV 500 mls @ 40 mls/hr 02/14/25 08:47 02/14/25 11:03 Miscellaneous Supplies IV 02/14/25 21:16 40 mls/hr X1 ONE Administration Immune Globulin 20 gm/ Immune 300 mls @ 50 mls/hr 02/14/25 10:30 02/14/25 11:04 Globulin 10 gm/ IV IV 02/18/25 16:29 50 mls/hr Miscellaneous Supplies QDAY@1030 JOE Administration Insulin Glargine 10 unit 02/09/25 17:00 02/14/25 08:12 Insulin Glargine (Lantus) 5 Unit/0.05 Ml (Per 5 Units) SC 03/11/25 16:59 10 unit QDAY JOE Administration Insulin Human Lispro 0 unit 02/09/25 17:00 02/14/25 08:10 Insulin Lispro (Admelog) 1 Unit/0.01 Ml Unit SC 03/11/25 16:59 Not Given AC [facility] Protocol Metoclopramide HCl 5 mg 02/11/25 21:00 02/14/25 08:10 Metoclopramide 5 Mg Tablet PO 03/13/25 20:59 Not Given BID JOE Ondansetron HCl 4 mg 02/09/25 16:42 Ondansetron Inj 2 Mg/Ml Inj 2 Ml IV 03/11/25 16:41 Q6H PRN NAUSEA OR VOMITING Protocol Pantoprazole Sodium 40 mg 02/10/25 21:00 02/14/25 08:23 Pantoprazole Inj 40 Mg Vial IV 03/12/25 20:59 40 mg BID JOE Administration Sodium Chloride 1 gm 02/13/25 09:00 02/14/25 08:11 Sodium Chloride 1 Gm Tablet PO 03/15/25 08:59 Not Given BID JOE Plan 69-year-old male with past medical history significant for diabetes type 2 on metformin, hypertension, hyperlipidemia who came into the ED with generalized weakness and worsening upper respiratory infection symptoms and admitted to [facility] for further management of sepsis secondary to community-acquired pneumonia. #Hypotonic hyponatremia Possibly secondary to SIADH vs psychogenic polydipsia vs beer potomania vs Stokes's disease? Nephrology was consulted we will appreciate recommendations Urine sodium elevated ? on hypertonic saline - Na [id number] ? on salt tablets ? Fluid restriction 1500 cc daily ? Follow-up urine electrolytes, sodium, chloride #??GBS #Generalized weakness Possibly secondary to hemolysis vs transfusion reaction Patient stated that he feels very weak and that he is not able to move his legs with decreased sensation on bilateral lower extremities CT head without contrast was negative for hemorrhage, midline shift or mass effect Patient with generalized weakness since Wednesday started in the lower extremities however has since spread to the upper extremities and is stating having some bowel and urinary dysfunction today he is also reporting some shortness of breath, Lumbar puncture performed by neurology service and recommended starting the patient on IVIG as GBS is still in the differential etiology likely more viral per neurology - on IVIG - MRI brain w/wo contrast ordered ? Neuro consulted, appreciate recommendations ? Will continue to monitor #Hyperbilirubinemia #?Hemolytic anemia Possibly secondary to drug-induced vs acute transfusion related hemolysis vs autoimmune vs paroxysmal nocturnal hemoglobin Liver ultrasound was unremarkable LDH elevated, reticulocyte count elevated, fibrinogen elevated attempted to curbside, hematology, did not seem concerned about hemolysis states likely more related to sepsis, but will review chart. ? Follow-up haptoglobin ? Follow-up blood smear #Sepsis improving #Community-acquired bilateral pneumonia Patient came in with generalized weakness and worsening upper respiratory tract infection symptoms after failing outpatient antibiotics. Patient continues to have fevers, chills, productive cough, and stomach pain. Chest x-ray in the ED shows bilateral pneumonia. Physical exam significant for diminished lung sounds throughout all lung bases. Pro-Beltran elevated at 0.7. Lactic acid elevated at 3.4. Influenza and COVID-19 negative. was on ceftriaxone and doxycicline and were switched to levaquin Cocci negative, Blood cultures negative, Cocci negative -on levofloxacin 750 mg q day -Oxygen as needed as needed -Zofran as needed for nausea -Tylenol as needed for fevers #Gastric motility disorder #Acute GI bleed-Ruled out Possibly secondary to PUD vs esophageal varices vs diverticulosis question Patient hemoglobin has been downtrending since admission hemoglobin 7.1 Gastroenterology was consulted we greatly appreciate recommendations EGD showed normal esophagus but likely motility disorder Colonoscopy showed hemorhoids ? Transfuse if hemoglobin less than 7 ? Reglan #Acute microcytic anemia #Iron deficiency anemia Possibly secondary to PUD vs anemia of chronic disease vs diverticulosis vs malignancy? Iron panel show iron deficiency anemia with iron sat 10% and iron of 34 mcg/dL Gastroenterology was consulted for further workup, appreciate recommendations ? Follow-up CBC #Diabetes mellitus type 2 not on chronic insulin therapy Patient takes home metformin twice daily with meals. A1c 6.9 -sliding scale insulin -Continue Lantus 10u SQ daily -Hypoglycemic protocol in place #Essential Hypertension -Continue to monitor vital signs ? on amlodipine 5 mg p.o. daily #Hyperlipidemia -atorvastatin 40mg HS #Lactic acidosis resolved #Dehydration Lactic acid elevated at 3.4, most likely in the setting of sepsis and infection due to poor organ perfusion. Lactic acid downtrending to normal limits Patient discussed with my seniors Dr. Stein PGY-2, Dr. Lindsey LOPEZ PGY-[address] Mike Ramirez MD PGY-1 DVT prophylaxis: SCD Diet: NPO Ortega: No Lines: PIV Supplemental O2: As needed CODE STATUS: Full code Disclaimer: Despite multiple revisions, due to the dictation software being used, the document bellow may not be free of grammatical errors including phonetic/typographic errors. However, this does not deter from our commitment to providing health care in the patient's best interest in mind. Attending Provider Attestation/Addendum I have examined the patient, reviewed labs and imaging findings, discussed the case with the resident(s), and reviewed entered orders. I agree with the plan of care as outlined in this note, with these additional summaries/recommendations: Patient seen at bedside. No acute overnight events. Patient was seen status post lumbar puncture today and appears to have tolerated the procedure well. He denies headache at this time. CSF analysis showed WBC 19, RBC 40, glucose 75, and total protein 95. CSF Gram stain shows no organisms or WBCs seen. Patient continues to endorse generalized weakness. He is able to slightly move bilateral lower extremities and sensation is intact although diminished. Patient also has moderate to severe upper extremity bilateral weakness. Possible patient has atypical GBS or transverse myelitis. We will order CT spine and MRi brain to rule out other etiologies. Neurology following and patient started on IVIG with pretreatment medications. We will monitor to see how patient responsed. Patient also found to have hypoosmolar hypochloremic hyponatremia. Unclear etiology for hyponatremia at this time and has actually worsened. Possibly SIADH. Patient was started on salt tablets yesterday and despite this sodium decreased to 118 and 116 this morning. Case discussed with in-house nephrology and patient started on hypertonic saline. Will continue to trend sodium closely. Bicitra started for metabolic acidosis. Patient was also suspected of having GI bleed. Hemoglobin stable at 9.0 today. Patient is status post EGD with no source of bleeding identified although did reveal large amount of food in the stomach suggestive of gastric motility disorder. Patient receiving IV Reglan. Colonoscopy only significant for hemorrhoids. Continue basal and bolus insulin for history of diabetes mellitus type 2. Repeat hematology and chemistry panel in AM. Dr. Mike MD
--- NOTE | 2025-02-14 12:49 | PCS.ST ---
pt transported to tele. INTENSIVE CARE UNIT NURSE will attempt swallow evaluation first thing tomorrow morning.
[2025-02-14 13:48] LABS: Sodium 117 mMol/L (136-145)
--- NOTE | 2025-02-14 15:28 | PD.RESPRO ---
Documentation for date of: 02/14/25 Subjective Subjective Interval history: Mr. Rodriguez is a 69-year-old gentleman with past medical history significant for type 2 diabetes, hypertension, dyslipidemia presented to the emergency department with weakness cough and fatigue going on for the last 1 week. Patient went to [facility] and was given Augmentin, promethazine DM, inhalers. However he continued to have fever chills and productive sputum that he brought himself to the emergency department. In the ER vitals have been stable. Labs show hemoglobin significantly low at 8.6, sodium was 123, creatinine 1.4, Pro-Beltran 0.7, lactic acid 3.4, urinalysis shows a 1+ protein, no blood. Chest x-ray showed pneumonia. Sick EKG showed sinus tachycardia. In the emergency department patient did receive 2 L normal saline bolus, antibiotics. Repeat labs showed sodium 128, bicarbonate 19.7, creatinine improved to 1.0. His hemoglobin dropped to 7.1 needing 1 unit of blood transfusion. This morning his hemoglobin is 9.1, sodium 125. Urine showed significantly dark and [id number] colored and renal consultation was requested. Patient currently seen in medical floor. Entire family at bedside. Dr. Wei was called in for anemia. Hemolytic anemia workup in progress. Patient noted to have significant elevation in LDH. Repeat urinalysis showed 3+ blood with 6 RBCs. CK levels normal. 02/13/2025 Patient was seen and examined bedside. No acute overnight events. Denies any other complaints. Still found to be hyponatremic with sodium 125. Added salt tablets 1 g p.o. twice daily 02/14/2025 Patient is seen and examined at the bedside C/o difficulty in moving all 4 extremities. 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 Still remained hyponatremic despite sodium tablets, so started on 3%NS and recommended to monitor sodium levels Exam Vital Signs Temp Pulse Resp BP Pulse Ox O2 Del Method O2 Flow Rate 97.0 F 75 21 H 157/91 H 92 L Room Air 3 02/14/25 12:00 02/14/25 12:00 02/14/25 12:00 02/14/25 12:00 02/14/25 12:00 02/14/25 12:02/12/25 19:39 Narrative Exam General: Awake. HEENT: Normocephalic, atraumatic, mucous membranes moist. Heart: Regular rate and rhythm, no murmurs. Lungs: Clear to auscultation with no wheezing or crackles. Abdomen: Soft, nondistended, nontender, positive bowel sounds. ?No guarding or rebound tenderness. Neurologic: Alert and oriented x3, 1/5 power in the lower extremities and 4 -/5 in the upper extremities Extremities:Bilateral 3+ pitting pedal edema extending up to about the ankles Skin: No rash or ecchymoses. Objective Labs 02/15/25 05:24 02/15/25 17:10 Labs: Laboratory Results - last 24 hr 02/10/25 02/14/25 02/14/25 16:03 05:10 05:35 WBC 8.2 RBC 4.02 L Hgb 9.0 L Hct 27.8 L MCV 69 L MCH 22.4 L MCHC 32.4 RDW Std Deviation 53.8 H Plt Count 295 D Neut % (Auto) 76 Lymph % (Auto) 9 L [place] % (Auto) 10 Eos % (Auto) 1 Baso % (Auto) 1 Neut # (Auto) 6.2 Lymph # (Auto) 0.8 L [place] # (Auto) 0.8 Eos # (Auto) 0.1 Baso # (Auto) 0.0 Immature Gran # (Auto) 0.30 H Absolute Nucleated RBC 0.00 Immature Gran % 4 H Nucleated RBC % 0 Sodium 118 L* Potassium 4.1 Chloride 91 L Carbon Dioxide 18.4 L Anion Gap 9 BUN 11 Creatinine 0.6 Estim Creat Clear Calc 104.9 eGFR > 60 BUN/Creatinine Ratio 18 Glucose 131 H Calculated Osmolality 239 L Calcium 9.2 Corrected Calcium 9.8 Total Bilirubin 1.1 AST 83 H ALT 42 Alkaline Phosphatase 120 H D Total Protein 6.6 Albumin 3.2 L Globulin 3.4 Albumin/Globulin Ratio 0.9 L Ur Random Sodium 167.0 H Ur Random Potassium 18 Ur Random Chloride 138.0 H CSF Appearance CSF Color CSF WBC CSF RBC CSF Cell Count Tube # CSF Mononuclear WBCs CSF Polynuclear WBCs CSF Glucose CSF Total Protein Crossmatch See Detail 02/14/25 02/14/25 02/14/25 08:40 09:03 12:53 WBC RBC Hgb Hct MCV MCH MCHC RDW Std Deviation Plt Count Neut % (Auto) Lymph % (Auto) [place] % (Auto) Eos % (Auto) Baso % (Auto) Neut # (Auto) Lymph # (Auto) [place] # (Auto) Eos # (Auto) Baso # (Auto) Immature Gran # (Auto) Absolute Nucleated RBC Immature Gran % Nucleated RBC % Sodium 116 L* 117 L* Potassium Chloride Carbon Dioxide Anion Gap BUN Creatinine Estim Creat Clear Calc eGFR BUN/Creatinine Ratio Glucose Calculated Osmolality Calcium Corrected Calcium Total Bilirubin AST ALT Alkaline Phosphatase Total Protein Albumin Globulin Albumin/Globulin Ratio Ur Random Sodium Ur Random Potassium Ur Random Chloride CSF Appearance Clear CSF Color Colorless CSF WBC 19 CSF RBC 40 CSF Cell Count Tube # Tube # 4 CSF Mononuclear WBCs 84 CSF Polynuclear WBCs 16 CSF Glucose 75 H CSF Total Protein 95 H Crossmatch Quality Measures Quality Measures none Advance care planning discussed with:: patient and spouse Assessment & Plan Assessment Current Active Medications: Generic Name Dose Route Start Last Admin Trade Name Freq PRN Reason Stop Dose Admin Acetaminophen 650 mg 02/09/25 16:42 Acetaminophen 325 Mg Tablet PO 03/11/25 16:41 Q6H PRN Fever >101.5 Acetaminophen 650 mg 02/09/25 16:52 02/13/25 18:53 Acetaminophen 325 Mg Tablet PO 03/11/25 16:51 650 mg Q6H PRN Administration PAIN SCALE 1-3 (mild Citric Acid/Sodium Citrate 30 ml 02/11/25 21:00 02/14/25 08:10 Citric Acid/Sodium Citr 15 Ml Udc (Bicitra) PO 03/13/25 20:59 Not Given BID JOE Dextrose 25 ml 02/09/25 16:56 Dextrose 50%-Water Inj 50 Ml Syringe IV 03/11/25 16:55 Q15MIN PRN BG 50-70 responsive npo pt Dextrose 50 ml 02/09/25 16:56 Dextrose 50%-Water Inj 50 Ml Syringe IV 03/11/25 16:55 Q15MIN PRN BG <50 OR BG <70 & pt unresponsive Glucagon 1 mg 02/09/25 16:56 Glucagon Inj 1 Mg Vial IM Q15MIN PRN BG <70, and no IV access Heparin Sodium (Porcine) 5,000 unit 02/14/25 09:15 02/14/25 14:56 Heparin Sod Inj 5000 Unit/Ml Vial SC 02/28/25 09:14 5,000 unit Q8HR JOE Administration Levofloxacin/Dextrose 750 mg in 150 mls @ 100 mls/hr 02/12/25 09:00 02/14/25 08:11 Levaquin Ivpb IV 02/19/25 08:59 100 mls/hr QDAY JOE Administration Sodium Chloride 500 ml/ IV 500 mls @ 40 mls/hr 02/14/25 08:47 02/14/25 11:03 Miscellaneous Supplies IV 02/14/25 21:16 40 mls/hr X1 ONE Administration Immune Globulin 20 gm/ Immune 300 mls @ 50 mls/hr 02/14/25 10:30 02/14/25 11:04 Globulin 10 gm/ IV IV 02/18/25 16:29 50 mls/hr Miscellaneous Supplies QDAY@1030 JOE Administration Insulin Glargine 10 unit 02/09/25 17:00 02/14/25 08:12 Insulin Glargine (Lantus) 5 Unit/0.05 Ml (Per 5 Units) SC 03/11/25 16:59 10 unit QDAY JOE Administration Insulin Human Lispro 0 unit 02/09/25 17:00 02/14/25 14:06 Insulin Lispro (Admelog) 1 Unit/0.01 Ml Unit SC 03/11/25 16:59 Not Given AC JOE Protocol Metoclopramide HCl 5 mg 02/11/25 21:00 02/14/25 08:10 Metoclopramide 5 Mg Tablet PO 03/13/25 20:59 Not Given BID JOE Ondansetron HCl 4 mg 02/09/25 16:42 Ondansetron Inj 2 Mg/Ml Inj 2 Ml IV 03/11/25 16:41 Q6H PRN NAUSEA OR VOMITING Protocol Pantoprazole Sodium 40 mg 02/10/25 21:00 02/14/25 08:23 Pantoprazole Inj 40 Mg Vial IV 03/12/25 20:59 40 mg BID JOE Administration Sodium Chloride 1 gm 02/13/25 09:00 02/14/25 08:11 Sodium Chloride 1 Gm Tablet PO 03/15/25 08:59 Not Given BID JOE Plan Mr. 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 BID # Non-anion gap metabolic acidosis, resolving -Patient was found to have low bicarb level since the time of admission with normal anion gap -Urine anion gap is 51 # Acute kidney injury, resolved Likely pain in the setting of sepsis and dehydration -Patient is admitted to the hospital with complaints of cough, weakness and fatigue -Patient's baseline creatinine is not available -Creatinine at the time of admission on 02/09/2025 is 1.4 > 02/12/2025, BUN 18, creatinine 0.7 -Renal ultrasound ordered did not show any significant pathology -no hydronephrosis or ureteral calculi -Patient was found to have 3+ blood, 6 RBC on urine analysis after PRBC transfusion, which could be likely due to blood transfusion reaction Plan -Repeat urine analysis was ordered -Avoid nephrotoxic medication and renally dose medications #Lactic acidosis, resolved Lactic acid elevated at at the time of admission-3.4, came back to normal levels #Sepsis #Community-acquired bilateral pneumonia #Diabetes mellitus type 2 not on chronic insulin therapy #Essential Hypertension #Hyperlipidemia #?Guillain [place] syndrome -rest of the medical conditions to be treated as per primary team Thank you for allowing us to involve in the care of the patient Patient plan of care was discussed with the attending physician, Dr. Mauro Brady, PGY1 Attending Provider Attestation/Addendum Patient seen and examined with resident physician Dr. Thomas. Note reviewed, agree with findings and recommendations. at bedside. Patient more alert and awake. DILMA resolved. Hyponatremia still persist-- ?? SIADH-urine sodium greater than 130, urine specific gravity 1030 Non-anion gap metabolic acidosis --questionable etiology. Doubt renal tubular acidosis. Chloride normal. Repeat urinalysis showed specific gravity greater than 1030, blood 1+ with no RBCs. Dark discoloration of urine resolved. Added Bicitra. Added salt tablets for persistent hyponatremia. Hemolysis resolved. Patient continues to have significant weakness in the lower extremities.
[2025-02-14 15:49] LABS: Sodium 116 mMol/L (136-145)
[2025-02-14] MEDS: KETOROLAC INJ 30 MG/ML VIAL 15 MG IVP (18:09)
[2025-02-14 18:52] LABS: Sodium 119 mMol/L (136-145)
--- NOTE | 2025-02-14 19:39 | PD.NEUROCONS ---
History of Present Illness Data of Consult Requesting Physician: Patel Mckeon MD Primary Care Provider: Farhat Ramirez MD Consult Narrative History of present illness: Mr. Rodriguez is a 69-year-old male with DM, hypertension, hyperlipidemia got admitted with generalized weakness and worsening upper respiratory tract infection. He was seen by his primary care physician 5 days prior to admission and was started on antibiotics. As the symptoms progressed, he was seen in the ER. He did have associated fever with chills, productive cough and abdominal pain. He denies any chest pain shortness of breath or sick contacts and travel outside recently. He did receive COVID and flu vaccination in the past. He got admitted on 02/09/2025 with pneumonia. As the weakness got worse to the point of involving the upper extremities now and difficulty in swallowing and breathing, neurology was consulted to evaluate further. He does complain of significant pain in the upper back lower back and mid back, needing to take analgesics [id number]. He started developing bladder control issues as well. Workup in the ER: Vitals: blood pressure of 143/78, heart rate of 110 Labs significant for low hemoglobin of 8.6, low sodium of 123, corrected 127, creatinine 1.4, lactic acid 3.4, elevated Pro-Beltran of 0.7. UA shows 2+ glucose and 1+ protein, otherwise negative for UTI. Imaging: Chest x-ray shows significant bilateral pneumonia. EKG shows sinus tachycardia at 112. Patient is on IV antibiotics and as needed Tylenol Patient admitted to telemetry for further management of sepsis secondary to community-acquired pneumonia. Neurology was consulted to evaluate further for progressive weakness. cc:: cc: Patel Mckeon MD Review of Systems Review of Systems Narrative Review of Systems: CONSTITUTIONAL: Patient denies any fever, chills. Patient complaining of extreme fatigue. HEENT: Denies any visual disturbances or hearing problems. CARDIOVASCULAR: Patient denies any chest pain, shortness of breath, swelling in the lower extremities. PULMONARY: Patient complaining of shortness of breath, cough. GASTROINTESTINAL: Patient denies any abdominal pain, constipation, nausea, vomiting, diarrhea. GENITOURINARY: Patient denies any urinary symptoms of burning or frequency or hematuria, denies any form in the urine. SKIN: Denies any rash. MUSCULOSKELETAL: Denies any muscular skeletal problems of joint pains. NEUROLOGICAL: Denies any neurological problems of strokes, seizures or confusion. Denies any memory problems. PSYCHIATRIC: Denies any depression or anxiety. LYMPHATICS : No lymphadenopathy Meds Home Medications and Allergies Allergies Allergy/AdvReac Type Severity Reaction Status Date / Time No Known Allergies Allergy Verified 02/09/25 13:35 Exam - Neurology Vital Signs Temp Pulse Resp BP Pulse Ox O2 Del Method O2 Flow Rate 97.5 F 69 17 164/86 H 97 Room Air 3 02/14/25 16:00 02/14/25 16:00 02/14/25 16:00 02/14/25 16:00 02/14/25 16:00 02/14/25 16:00 02/12/25 19:39 Narrative Exam GENERAL APPEARANCE: Well hydrated, well-nourished in no acute distress. HEENT: Normocephalic, atraumatic, impaired extraocular movement. pupils: Equal reacting to light NECK: Supple, no JVD or bruits. CARDIOVASULAR: Heart: S1, S2 heard, regular without S3-S4 or murmur no rubs or gallops. LUNGS/CHEST: Clear to auscultation bilaterally. No rails, rhonchi, or wheezing. Normal inspection. ABDOMEN: Soft, nontender, with normal bowel sounds. No pulsatile masses. No rebound, rigidity, or guarding. Normal inspection and palpation. EXTREMITIES: Normal inspection and palpation. No edema, clubbing or cyanosis. SKIN: Warm and dry without rashes. Normal inspection. MUSCULOSKELETAL: No cervical, thoracic, lumbar or midline bony tenderness. Normal inspection. NEURO: Alert, awake and oriented x3. Cranial nerves: II through XII grossly intact. Speech and language: Monotonous, hypophonic speech. motor system: Tone and bulk: Normal: Strength: Significant proximal more than distal weakness in both upper and lower extremities. Deep tendon reflexes: Absent, bilaterally symmetrical. Plantar reflex: Downgoing bilaterally. Sensory system: Impaired to all modalities of sensation bilaterally. Rest of the exam: Limited. No signs of meningeal irritation noted. PSYCHIATRIC: Normal mood and affect. Results Labs 02/14/25 05:35 02/14/25 17:52 Labs: Short CBC 02/14/25 Range/Units 05:35 WBC 8.2 (3.8-10.6) Thou/mm3 Hgb 9.0 L (13.5-16.0) g/dL Hct 27.8 L (41.0-53.0) % Plt Count 295 D (140-440) Thou/mm3 BMP 02/14/25 02/14/25 02/14/25 05:35 09:03 12:53 Sodium 118 L* 116 L* 117 L* Potassium 4.1 Chloride 91 L Carbon Dioxide 18.4 L BUN 11 Creatinine 0.6 Glucose 131 H Calcium 9.2 02/14/25 02/14/25 15:00 17:52 Sodium 116 L* 119 L* Potassium Chloride Carbon Dioxide BUN Creatinine Glucose Calcium Liver Function 02/14/25 Range/Units 05:35 Total Bilirubin 1.1 (0.3-1.2) mg/dL AST 83 H (0-34) U/L ALT 42 (10-49) U/L Alkaline Phosphatase 120 H D (46-116) U/L Albumin 3.2 L (3.4-4.8) gm/dL Assessment & Plan Assessment and plan (1) Weakness generalized: Status: Acute Assessment and plan: Suspected Guillain-Spivey? syndrome/myasthenia gravis/transverse myelitis/viral encephalomyelitis Plan to do lumbar puncture Look for elevated protein and low cell count in the csf with albumino cytological dissociation which is seen in GBS. Also order acetylcholine receptor antibodies. Consider checking for autoimmune encephalitis panel as well. Consider checking for autoimmune encephalitis panel. If protein is elevated, will consider treating him with IVIG for 5 days with premedication. Continue with DVT prevention with teds and SCDs (2) Acute renal failure (ARF): Status: Acute Assessment and plan: Being closely followed followed by nephrology (3) Acute hyponatremia: Status: Acute Assessment and plan: Going to be on hypertonic saline as the sodium dropped from 1 23-1 18 (4) Pneumonia: Status: Acute Assessment and plan: Continue with IV antibiotics (5) Sepsis: Status: Acute Assessment and plan: Continue with IV antibiotics (6) Anemia: Status: Acute Assessment and plan: Continues to have low hemoglobin and hematocrit and low MCV Rest of the workup and management per primary team
--- NOTE | 2025-02-14 20:32 | PD.IMPROG ---
Documentation for date of: 02/14/25 Subjective Subjective Interval history: Patient evaluated Hemoglobin hematocrit 9.0 and 27 point Exam Vital Signs Temp Pulse Resp BP Pulse Ox O2 Del Method O2 Flow Rate 97.5 F 69 17 164/86 H 97 Room Air 3 02/14/25 16:00 02/14/25 16:00 02/14/25 16:00 02/14/25 16:00 02/14/25 16:00 02/14/25 16:00 02/12/25 19:39 Objective Labs 02/14/25 05:35 02/14/25 17:52 Labs: Laboratory Results - last 24 hr 02/10/25 02/14/25 02/14/25 16:03 05:10 05:35 WBC 8.2 RBC 4.02 L Hgb 9.0 L Hct 27.8 L MCV 69 L MCH 22.4 L MCHC 32.4 RDW Std Deviation 53.8 H Plt Count 295 D Neut % (Auto) 76 Lymph % (Auto) 9 L [place] % (Auto) 10 Eos % (Auto) 1 Baso % (Auto) 1 Neut # (Auto) 6.2 Lymph # (Auto) 0.8 L [place] # (Auto) 0.8 Eos # (Auto) 0.1 Baso # (Auto) 0.0 Immature Gran # (Auto) 0.30 H Absolute Nucleated RBC 0.00 Immature Gran % 4 H Nucleated RBC % 0 Sodium 118 L* Potassium 4.1 Chloride 91 L Carbon Dioxide 18.4 L Anion Gap 9 BUN 11 Creatinine 0.6 Estim Creat Clear Calc 104.9 eGFR > 60 BUN/Creatinine Ratio 18 Glucose 131 H Calculated Osmolality 239 L Calcium 9.2 Corrected Calcium 9.8 Total Bilirubin 1.1 AST 83 H ALT 42 Alkaline Phosphatase 120 H D Total Protein 6.6 Albumin 3.2 L Globulin 3.4 Albumin/Globulin Ratio 0.9 L Ur Random Sodium 167.0 H Ur Random Potassium 18 Ur Random Chloride 138.0 H CSF Appearance CSF Color CSF WBC CSF RBC CSF Cell Count Tube # CSF Mononuclear WBCs CSF Polynuclear WBCs CSF Glucose CSF Total Protein Crossmatch See Detail 02/14/25 02/14/25 02/14/25 08:40 09:03 12:53 WBC RBC Hgb Hct MCV MCH MCHC RDW Std Deviation Plt Count Neut % (Auto) Lymph % (Auto) [place] % (Auto) Eos % (Auto) Baso % (Auto) Neut # (Auto) Lymph # (Auto) [place] # (Auto) Eos # (Auto) Baso # (Auto) Immature Gran # (Auto) Absolute Nucleated RBC Immature Gran % Nucleated RBC % Sodium 116 L* 117 L* Potassium Chloride Carbon Dioxide Anion Gap BUN Creatinine Estim Creat Clear Calc eGFR BUN/Creatinine Ratio Glucose Calculated Osmolality Calcium Corrected Calcium Total Bilirubin AST ALT Alkaline Phosphatase Total Protein Albumin Globulin Albumin/Globulin Ratio Ur Random Sodium Ur Random Potassium Ur Random Chloride CSF Appearance Clear CSF Color Colorless CSF WBC 19 CSF RBC 40 CSF Cell Count Tube # Tube # 4 CSF Mononuclear WBCs 84 CSF Polynuclear WBCs 16 CSF Glucose 75 H CSF Total Protein 95 H Crossmatch 02/14/25 02/14/25 15:00 17:52 WBC RBC Hgb Hct MCV MCH MCHC RDW Std Deviation Plt Count Neut % (Auto) Lymph % (Auto) [place] % (Auto) Eos % (Auto) Baso % (Auto) Neut # (Auto) Lymph # (Auto) [place] # (Auto) Eos # (Auto) Baso # (Auto) Immature Gran # (Auto) Absolute Nucleated RBC Immature Gran % Nucleated RBC % Sodium 116 L* 119 L* Potassium Chloride Carbon Dioxide Anion Gap BUN Creatinine Estim Creat Clear Calc eGFR BUN/Creatinine Ratio Glucose Calculated Osmolality Calcium Corrected Calcium Total Bilirubin AST ALT Alkaline Phosphatase Total Protein Albumin Globulin Albumin/Globulin Ratio Ur Random Sodium Ur Random Potassium Ur Random Chloride CSF Appearance CSF Color CSF WBC CSF RBC CSF Cell Count Tube # CSF Mononuclear WBCs CSF Polynuclear WBCs CSF Glucose CSF Total Protein Crossmatch Impressions Impression: # Hemorrhagic gastritis # Internal hemorrhoids # Diverticulosis left colon Continue current management Assessment & Plan A&P Narrative # Drop in hemoglobin hematocrit multifactorial Stool culture pending Other laboratory data pending Consent obtained for fiberoptic esophagogastroduodenoscopy with possible biopsy possible therapeutic intervention under intravenous moderate sedation scheduled for tomorrow Clear liquid diet and n.p.o. midnight tonight Other medical problems include Bilateral pneumonia Gross electrolyte abnormalities with hyponatremia improving Essential hypertension Hyperlipidemia Thank you very much for the opportunity to participate in care of this patient Time Spent With Patient Time: Total time spent is greater than 50% in coordination of care (as documented) at patient's floor/unit and/or counseling patient:
[2025-02-14 21:27] LABS: Sodium 118 mMol/L (136-145)
[2025-02-14 23:59] LABS: Sodium 119 mMol/L (136-145)
[2025-02-15] VITALS (17 sets, daily range): BP systolic 139–172; BP diastolic 45–99; PULSE 68–85; RESP 18–26; TEMP 35.9–36.2; O2SAT 95–97; BMI 25.4; BMI 27.3
[2025-02-15] MEDS: KETOROLAC INJ 30 MG/ML VIAL IVP (01:32)
[2025-02-15] MEDS: HEPARIN SOD INJ 5000 UNIT/ML VIAL SC ×2 (05:09→22:12)
[2025-02-15 06:00] LABS: Basophils % (Auto) 1 % (0-2.5); Eosinophils # (Auto) 0.1 Thou/mm3 (0.0-0.5); Eosinophils % (Auto) 1 % (0-10); Hematocrit 29.7 % (41.0-53.0); Hemoglobin 9.6 g/dL (13.5-16.0); Immature Granulocytes % (Auto) 4 % (0-0); Immature Granulocytes Auto 0.32 Thou/mm3 (0.00-0.00); Lymphocytes # (Auto) 0.8 Thou/mm3 (1.0-4.8); Lymphocytes % (Auto) 10 % (10-50); Mean Corpuscular HGB Conc 32.3 g/dl (31.0-37.0); Mean Corpuscular Hemoglobin 22.3 pg (25.0-35.0); Mean Corpuscular Volume 69 fL (80-100); Monocytes # (Auto) 0.8 Thou/mm3 (0.0-0.8); Monocytes % (Auto) 11 % (0-12); Neutrophils # (Auto) 5.5 Thou/mm3 (1.8-7.7); Neutrophils % (Auto) 74 % (37-80); Nucleated Red Blood Cell % 0 /100 WBC (0); Platelet Count 325 Thou/mm3 (140-440); RDW Standard Deviation 53.9 fL (35.1-43.9); White Blood Count 7.4 Thou/mm3 (3.8-10.6)
[2025-02-15 06:47] LABS: Alanine Aminotransferase 57 U/L (10-49); Albumin, Serum 3.3 gm/dL (3.4-4.8); Albumin/Globulin Ratio 0.8 (1.2-2.2); Alkaline Phosphatase 134 U/L (46-116); Anion Gap 9 (7-16); Aspartate Amino Transferase 91 U/L (0-34); BUN/Creatinine Ratio 27 Ratio (12-20); Bilirubin,Total 0.8 mg/dL (0.3-1.2); Blood Urea Nitrogen 16 mg/dL (9-23); Calcium 9.3 mg/dL (8.3-10.6); Calcium (Corrected) 9.9 mg/dL (8.5-10.1); Carbon Dioxide 17.8 mMol/L (20.0-31.0); Chloride 92 mMol/L (98-107); Creatinine (Component) 0.6 mg/dL (0.6-1.3); Estimated Creatinine Clearance 104.9 mL/min (>60); Globulin 4.2 gm/dL (2.3-3.5); Glucose 145 mg/dL (74-106); Magnesium 1.9 mg/dL (1.6-2.6); Osmolality,Calculated 244 (275-295); Phosphorous 2.9 mg/dL (2.4-5.1); Potassium 4.2 mMol/L (3.4-5.1); Total Protein 7.5 gm/dL (5.7-8.2); eGFR > 60 See Note
[2025-02-15 07:10] LABS: Sodium 119 mMol/L (136-145)
[2025-02-15] MEDS: Magnesium Sulfate 2 GM Ivpb 2 GM/50 ML BAG IV (09:03)
[2025-02-15] MEDS: PANTOPRAZOLE INJ 40 MG VIAL IV ×2 (09:03→22:12)
[2025-02-15] MEDS: LEVOFLOXACIN/D5W 750MG IVPB 750 MG/150 ML BAG 100 MG IV (09:03)
[2025-02-15] MEDS: SODIUM CHLORIDE 3%(Hypertonic) 500 ML in PRE-MIXED 1 BAG 30 ML IV (10:00)
--- NOTE | 2025-02-15 10:08 | PC.SS ---
Addendum entered by Lucy Anders 02/15/25 10:34: PT notes also sent via fax [phone] Original Note: SS spoke to Natalia at [facility] and informed her pt and fam want their facility. PAS[employer] file exchanged to start auth.
[2025-02-15] MEDS: IMMUNE GLOB GA CA IV (10:10)
[2025-02-15] MEDS: PRE MIXED IV (10:10)
--- NOTE | 2025-02-15 10:28 | XR_ITS ---
Examination: Modified barium swallow Video esophagram Fluoroscopy 72 spot fluoroscopic films of the soft tissue neck with the patient swallowing Exam date and time: 1300 hours INDICATIONS: Difficulty swallowing months TECHNIQUE AND FINDINGS: Barium mixture is administered including thin barium, cracker barium pudding barium Premature transfer and pooling with all mixtures Aspiration noted with administration of thin barium IMPRESSION: Pharyngeal aspiration Fluoroscopy 0.3 minutes 72 spot fluoroscopic films of the esophagus radiation dose 42.79 milligray
--- NOTE | 2025-02-15 12:20 | PC.SS ---
SS spoke to Natalia at [facility], insurance is requesting clinicals be sent to [phone]. SS faxed utilizing [employer] Fax.
--- NOTE | 2025-02-15 12:21 | ESPR_ITS ---
<Statement entered by Aye Stein MD - 02/15/25 16:51> Patient seen and examined at bedside. No acute overnight events reported. Patient continues to have a NIF score above 20. Bedside swallow was done, and failed, and recommended XR video fluoroscopy study which showed patient was able to tolerate dysphagia-2 diet. Consulted ICU for Central line placement in order to increase current rate of hypertonic saline. Patient continues to feel global weakness, and continues to be on IVIG, day 2. I discussed with and supervised the [employer] internship physician who took care of this patient. I personally saw and examined the patient and discussed the assessment and plan with the entire medicine team, including my attending Dr. Mckeon, I agree with most of the assessment and plan as documented below Aye Stein M.D. PGY-2 Disclaimer: Despite multiple revisions, due to the dictation software being used, the document bellow may not be free of grammatical errors including phonetic/typographic errors. However, this does not deter from our commitment to providing health care in the patient's best interest in mind. Documentation for date of: 02/15/25 Subjective Subjective Interval history: Patient seen today at the bedside found awake, alert, oriented x 3. No overnight events reported. States feeling about the same continues with weakness on all 4 extremities. Bedside swallow screen was done yesterday patient failed swallow eval continues n.p.o, speech therapy recommended video fluoroscopy. Labs significant for continued hyponatremia despite hypertonic saline. Consulted ICU for central line insertion in order to increase rate of hypertonic saline to help correct sodium. Patient continues with weakness on all 4 extremities trouble breathing and swallowing, last Nif of 26, continues on IVIG at this time as per neurology recommendations. Patient still pending MRI brain. Exam Vital Signs Temp Pulse Resp BP Pulse Ox O2 Del Method O2 Flow Rate 96.9 F 81 18 163/91 H 95 Room Air 3 02/15/25 08:00 02/15/25 12:00 02/15/25 08:00 02/15/25 08:00 02/15/25 08:00 02/15/25 08:00 02/12/25 19:39 Narrative Exam Physical Exam GENERAL: NAD, AAOx3 HEENT: Moist mucosa. Eyes open, symmetrical, & clear CARDIO: Heart RRR, no obvious murmurs PULM: No noted coughing/dyspnea CTA B/L, no R/W/R GI: Abdomen soft, nondistended, no pain on palpation. BSx4 SKIN/MSK/EXT: mild edema bilateral lower extremities, no pain on palpation. Pedal pulses present B/L NEURO: AAOx3,weakness in all 4 extremities progressive, weakness noted in respiratory muscles Objective Labs 02/15/25 05:24 02/15/25 12:02 Labs: Laboratory Results - last 24 hr 02/14/25 02/14/25 02/14/25 12:53 15:00 17:52 WBC RBC Hgb Hct MCV MCH MCHC RDW Std Deviation Plt Count Neut % (Auto) Lymph % (Auto) [place] % (Auto) Eos % (Auto) Baso % (Auto) Neut # (Auto) Lymph # (Auto) [place] # (Auto) Eos # (Auto) Baso # (Auto) Immature Gran # (Auto) Absolute Nucleated RBC Immature Gran % Nucleated RBC % Sodium 117 L* 116 L* 119 L* Potassium Chloride Carbon Dioxide Anion Gap BUN Creatinine Estim Creat Clear Calc eGFR BUN/Creatinine Ratio Glucose Calculated Osmolality Calcium Corrected Calcium Phosphorus Magnesium Total Bilirubin AST ALT Alkaline Phosphatase Total Protein Albumin Globulin Albumin/Globulin Ratio 02/14/25 02/14/25 02/15/25 20:30 23:25 05:24 WBC 7.4 RBC 4.30 L Hgb 9.6 L Hct 29.7 L MCV 69 L MCH 22.3 L MCHC 32.3 RDW Std Deviation 53.9 H Plt Count 325 D Neut % (Auto) 74 Lymph % (Auto) 10 [place] % (Auto) 11 Eos % (Auto) 1 Baso % (Auto) 1 Neut # (Auto) 5.5 Lymph # (Auto) 0.8 L [place] # (Auto) 0.8 Eos # (Auto) 0.1 Baso # (Auto) 0.0 Immature Gran # (Auto) 0.32 H Absolute Nucleated RBC 0.00 Immature Gran % 4 H Nucleated RBC % 0 Sodium 118 L* 119 L* 119 L* Potassium 4.2 Chloride 92 L Carbon Dioxide 17.8 L Anion Gap 9 BUN 16 Creatinine 0.6 Estim Creat Clear Calc 104.9 eGFR > 60 BUN/Creatinine Ratio 27 H Glucose 145 H Calculated Osmolality 244 L Calcium 9.3 Corrected Calcium 9.9 Phosphorus 2.9 Magnesium 1.9 Total Bilirubin 0.8 AST 91 H ALT 57 H Alkaline Phosphatase 134 H Total Protein 7.5 Albumin 3.3 L Globulin 4.2 H Albumin/Globulin Ratio 0.8 L Quality Measures Quality Measures none Advance care planning discussed with:: patient Assessment & Plan Assessment Current Active Medications: Generic Name Dose Route Start Last Admin Trade Name Freq PRN Reason Stop Dose Admin Acetaminophen 650 mg 02/09/25 16:42 Acetaminophen 325 Mg Tablet PO 03/11/25 16:41 Q6H PRN Fever >101.5 Acetaminophen 650 mg 02/09/25 16:52 02/13/25 18:53 Acetaminophen 325 Mg Tablet PO 03/11/25 16:51 650 mg Q6H PRN Administration PAIN SCALE 1-3 (mild Atorvastatin Calcium 40 mg 02/14/25 21:00 02/14/25 21:22 Atorvastatin Calcium 20 Mg Tablet PO 03/16/25 20:59 Not Given HS JOE Citric Acid/Sodium Citrate 30 ml 02/11/25 21:00 02/15/25 11:47 Citric Acid/Sodium Citr 15 Ml Udc (Bicitra) PO 03/13/25 20:59 Not Given BID JOE Dextrose 25 ml 02/09/25 16:56 Dextrose 50%-Water Inj 50 Ml Syringe IV 03/11/25 16:55 Q15MIN PRN BG 50-70 responsive npo pt Dextrose 50 ml 02/09/25 16:56 Dextrose 50%-Water Inj 50 Ml Syringe IV 03/11/25 16:55 Q15MIN PRN BG <50 OR BG <70 & pt unresponsive Glucagon 1 mg 02/09/25 16:56 Glucagon Inj 1 Mg Vial IM Q15MIN PRN BG <70, and no IV access Heparin Sodium (Porcine) 5,000 unit 02/14/25 09:15 02/15/25 05:09 Heparin Sod Inj 5000 Unit/Ml Vial SC 02/28/25 09:14 5,000 unit Q8HR JOE Administration Hydralazine HCl 10 mg 02/15/25 05:16 Hydralazine Inj 20 Mg/Ml Vial IV 03/17/25 05:15 Q2H PRN SBP > 180mmHg Levofloxacin/Dextrose 750 mg in 150 mls @ 100 mls/hr 02/12/25 09:00 02/15/25 09:03 Levaquin Ivpb IV 02/19/25 08:59 100 mls/hr QDAY JOE Administration Immune Globulin 20 gm/ Immune 300 mls @ 50 mls/hr 02/14/25 10:30 02/15/25 10:10 Globulin 10 gm/ IV IV 02/18/25 16:29 50 mls/hr Miscellaneous Supplies QDAY@1030 JOE Administration Sodium Chloride 500 ml/ IV 500 mls @ 30 mls/hr 02/15/25 09:30 02/15/25 10:00 Miscellaneous Supplies IV 02/16/25 02:09 30 mls/hr X1 ONE Administration Insulin Glargine 10 unit 02/09/25 17:00 02/15/25 09:04 Insulin Glargine (Lantus) 5 Unit/0.05 Ml (Per 5 Units) SC 03/11/25 16:59 Not Given QDAY JOE Insulin Human Lispro 0 unit 02/14/25 18:00 02/15/25 11:51 Insulin Lispro (Admelog) 1 Unit/0.01 Ml Unit SC 03/16/25 17:59 Not Given Q6HR JOE Protocol Metoclopramide HCl 5 mg 02/11/25 21:00 02/15/25 11:49 Metoclopramide 5 Mg Tablet PO 03/13/25 20:59 Not Given BID JOE Ondansetron HCl 4 mg 02/09/25 16:42 Ondansetron Inj 2 Mg/Ml Inj 2 Ml IV 03/11/25 16:41 Q6H PRN NAUSEA OR VOMITING Protocol Pantoprazole Sodium 40 mg 02/10/25 21:00 02/15/25 09:03 Pantoprazole Inj 40 Mg Vial IV 03/12/25 20:59 40 mg BID JOE Administration Sodium Chloride 1 gm 02/14/25 17:15 02/15/25 05:07 Sodium Chloride 1 Gm Tablet PO 03/16/25 17:14 Not Given TID JOE Plan 69-year-old male with past medical history significant for diabetes type 2 on metformin, hypertension, hyperlipidemia who came into the ED with generalized weakness and worsening upper respiratory infection symptoms and admitted to [facility] for further management of sepsis secondary to community-acquired pneumonia. #Hypotonic hyponatremia Possibly secondary to SIADH vs psychogenic polydipsia vs beer potomania vs [place]'s disease? Nephrology was consulted we will appreciate recommendations Urine sodium elevated pending Central line placement by ICU team in order to increase rate of hypertonic saline ? on hypertonic saline - Na [id number] ? on salt tablets ? Fluid restriction 1500 cc daily ? Follow-up urine electrolytes, sodium, chloride #??GBS #Generalized weakness Possibly secondary to hemolysis vs transfusion reaction Patient stated that he feels very weak and that he is not able to move his legs with decreased sensation on bilateral lower extremities CT head without contrast was negative for hemorrhage, midline shift or mass effect Patient with generalized weakness since Wednesday started in the lower extremities however has since spread to the upper extremities and is stating having some bowel and urinary dysfunction today he is also reporting some shortness of breath, Lumbar puncture performed by neurology service and recommended starting the patient on IVIG as GBS is still in the differential etiology likely more viral per neurology - on IVIG - MRI brain w/wo contrast ordered ? Neuro consulted, appreciate recommendations ? Will continue to monitor #Hyperbilirubinemia-resolved #?Hemolytic anemia Possibly secondary to drug-induced vs acute transfusion related hemolysis vs autoimmune vs paroxysmal nocturnal hemoglobin Liver ultrasound was unremarkable LDH elevated, reticulocyte count elevated, fibrinogen elevated attempted to curbside, hematology, did not seem concerned about hemolysis states likely more related to sepsis, but will review chart. ? Follow-up haptoglobin ? Follow-up blood smear #Sepsis improving #Community-acquired bilateral pneumonia Patient came in with generalized weakness and worsening upper respiratory tract infection symptoms after failing outpatient antibiotics. Patient continues to have fevers, chills, productive cough, and stomach pain. Chest x-ray in the ED shows bilateral pneumonia. Physical exam significant for diminished lung sounds throughout all lung bases. Pro-Beltran elevated at 0.7. Lactic acid elevated at 3.4. Influenza and COVID-19 negative. was on ceftriaxone and doxycicline and were switched to levaquin Cocci negative, Blood cultures negative, Cocci negative -on levofloxacin 750 mg q day -Oxygen as needed as needed -Zofran as needed for nausea -Tylenol as needed for fevers #Gastric motility disorder #Acute GI bleed-Ruled out Possibly secondary to PUD vs esophageal varices vs diverticulosis question Patient hemoglobin has been downtrending since admission hemoglobin 7.1 Gastroenterology was consulted we greatly appreciate recommendations EGD showed normal esophagus but likely motility disorder Colonoscopy showed hemorhoids ? Transfuse if hemoglobin less than 7 ? Reglan #Acute microcytic anemia #Iron deficiency anemia Possibly secondary to PUD vs anemia of chronic disease vs diverticulosis vs malignancy? Iron panel show iron deficiency anemia with iron sat 10% and iron of 34 mcg/dL Gastroenterology was consulted for further workup, appreciate recommendations ? Follow-up CBC #Diabetes mellitus type 2 not on chronic insulin therapy Patient takes home metformin twice daily with meals. A1c 6.9 -sliding scale insulin -Continue Lantus 10u SQ daily -Hypoglycemic protocol in place #Essential Hypertension -Continue to monitor vital signs ? on amlodipine 5 mg p.o. daily #Hyperlipidemia -atorvastatin 40mg HS #Lactic acidosis resolved #Dehydration Lactic acid elevated at 3.4, most likely in the setting of sepsis and infection due to poor organ perfusion. Lactic acid downtrending to normal limits Patient discussed with my seniors Dr. Stein PGY-[address] Mike Ramirez MD PGY-1 DVT prophylaxis: SCD Diet: NPO [place]tega: No Lines: PIV Supplemental O2: As needed CODE STATUS: Full code Disclaimer: Despite multiple revisions, due to the dictation software being used, the document bellow may not be free of grammatical errors including phonetic/typographic errors. However, this does not deter from our commitment to providing health care in the patient's best interest in mind. Attending Provider Attestation/Addendum I have examined the patient, reviewed labs and imaging findings, discussed the case with the resident(s), and reviewed entered orders. I agree with the plan of care as outlined in this note, with these additional summaries/recommendations: Patient seen at bedside. No acute overnight events. Patient continues to have severe generalized weakness, dysphagia, and shortness of breath. Sensation is intact throughout although diminished. Patient is status post lumbar puncture. He denies headache at this time. CSF analysis showed WBC 19, RBC 40, glucose 75, and total protein 95. CSF Gram stain shows no organisms or WBCs seen. Possible patient has atypical GBS or transverse myelitis. Low suspicion for ALS given time frame of symptoms. Also possible MG or Viral encephalitis. Patient's reports he traveled to [place] in October. denies any [id number] supplements although reports he was prescribed something for fungal infection in his feet. advised to bring medicine to the hospital. He denies any diarrhea or illness who within the last couple months. CT lumbar spine did reveal moderate left L5 ganglionic compression although likely chronic finding and would not explain patient's upper extremity weakness, dysphagia, or shortness of breath. Patient is still pending MRI brain. NIF score 26 this morning and we will continue to frequently monitor and low threshold for intubation if respiratory status worsens. Neurology following and patient started on IVIG with pretreatment medications. Day 2 of treatment. We will monitor for improvement. Patient also found to have hypoosmolar hypochloremic hyponatremia. Unclear etiology for hyponatremia at this time but most likely related to SIADH versus GBS. Patient was started on salt tablets and hypertonic saline. Sodium continues to decrease despite hypertonic saline. case discussed with in-house nephrology and we will proceed with central line to increase rate of hypertonic saline. Will continue to trend sodium closely. Bicitra started for metabolic acidosis. Patient was also suspected of having GI bleed. Hemoglobin stable at 9.6 today. Patient is status post EGD with no source of bleeding identified although did reveal large amount of food in the stomach suggestive of gastric motility disorder. Patient receiving IV Reglan. Colonoscopy only significant for hemorrhoids. Continue basal and bolus insulin for history of diabetes mellitus type 2. Patient failed swallow evaluation today and currently NPO. Continue levofloxacin for bacterial pneumonia. Repeat hematology and chemistry panel in AM. Dr. Mike MD
[2025-02-15 13:17] LABS: Sodium 117 mMol/L (136-145)
[2025-02-15 13:46] LABS: Uric Acid 3.3 mg/dL (3.7-9.2)
--- NOTE | 2025-02-15 14:23 | PD.RESPRO ---
Documentation for date of: 02/15/25 Subjective Subjective Interval history: Mr. Rodriguez is a 69-year-old gentleman with past medical history significant for type 2 diabetes, hypertension, dyslipidemia presented to the emergency department with weakness cough and fatigue going on for the last [address] week. Patient went to [facility] and was given Augmentin, promethazine DM, inhalers. However he continued to have fever chills and productive sputum that he brought himself to the emergency department. In the ER vitals have been stable. Labs show hemoglobin significantly low at 8.6, sodium was 123, creatinine 1.4, Pro-Beltran 0.7, lactic acid 3.4, urinalysis shows a 1+ protein, no blood. Chest x-ray showed pneumonia. Sick EKG showed sinus tachycardia. In the emergency department patient did receive 2 L normal saline bolus, antibiotics. Repeat labs showed sodium 128, bicarbonate 19.7, creatinine improved to 1.0. His hemoglobin dropped to 7.1 needing 1 unit of blood transfusion. This morning his hemoglobin is 9.1, sodium 125. Urine showed significantly dark and [id number] colored and renal consultation was requested. Patient currently seen in medical floor. Entire family at bedside. Dr. Wei was called in for anemia. Hemolytic anemia workup in progress. Patient noted to have significant elevation in LDH. Repeat urinalysis showed 3+ blood with 6 RBCs. CK levels normal. 02/13/2025 Patient was seen and examined bedside. No acute overnight events. Denies any other complaints. Still found to be hyponatremic with sodium 125. Added salt tablets 1 g p.o. twice daily 02/14/2025 Patient is seen and examined at the bedside C/o difficulty in moving all 4 extremities. 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 Still remained hyponatremic despite sodium tablets, so started on 3%NS and recommended to monitor sodium levels 02/15/2025 Patient is seen and examined at the bedside in the telemetry Still had difficulty in moving the extremities, power is 1/5 in lower extremities and 4 -/5 in upper extremities. Single breath count is 6, likely impending respiratory failure. Had difficulty in swallowing and scheduled for speech evaluation today. Labs showed sodium of 119 and recommended to continue 3% NS at 40 mL/h and continue sodium checks every fourth hourly. If the sodium levels does not improve recommended to increase the rate of 3% NS Exam Vital Signs Temp Pulse Resp BP Pulse Ox O2 Del Method O2 Flow Rate 96.9 F 81 18 163/91 H 95 Room Air 3 02/15/25 08:00 02/15/25 12:00 02/15/25 08:00 02/15/25 08:00 02/15/25 08:00 02/15/25 08:00 02/12/25 19:39 Narrative Exam General: Awake. HEENT: Normocephalic, atraumatic, mucous membranes moist. Heart: Regular rate and rhythm, no murmurs. Lungs: Clear to auscultation with no wheezing or crackles. Abdomen: Soft, nondistended, nontender, positive bowel sounds. ?No guarding or rebound tenderness. Neurologic: Alert and oriented x3, 1/5 power in the lower extremities and 4 -/5 in the upper extremities Extremities:Bilateral 3+ pitting pedal edema extending up to about the ankles Skin: No rash or ecchymoses. Objective Labs 02/15/25 05:24 02/15/25 17:10 Labs: Laboratory Results - last 24 hr 02/14/25 02/14/25 02/14/25 15:00 17:52 20:30 WBC RBC Hgb Hct MCV MCH MCHC RDW Std Deviation Plt Count Neut % (Auto) Lymph % (Auto) [place] % (Auto) Eos % (Auto) Baso % (Auto) Neut # (Auto) Lymph # (Auto) [place] # (Auto) Eos # (Auto) Baso # (Auto) Immature Gran # (Auto) Absolute Nucleated RBC Immature Gran % Nucleated RBC % Sodium 116 L* 119 L* 118 L* Potassium Chloride Carbon Dioxide Anion Gap BUN Creatinine Estim Creat Clear Calc eGFR BUN/Creatinine Ratio Glucose Calculated Osmolality Uric Acid Calcium Corrected Calcium Phosphorus Magnesium Total Bilirubin AST ALT Alkaline Phosphatase Total Protein Albumin Globulin Albumin/Globulin Ratio 02/14/25 02/15/25 02/15/25 23:25 05:24 12:02 WBC 7.4 RBC 4.30 L Hgb 9.6 L Hct 29.7 L MCV 69 L MCH 22.3 L MCHC 32.3 RDW Std Deviation 53.9 H Plt Count 325 D Neut % (Auto) 74 Lymph % (Auto) 10 [place] % (Auto) 11 Eos % (Auto) 1 Baso % (Auto) 1 Neut # (Auto) 5.5 Lymph # (Auto) 0.8 L [place] # (Auto) 0.8 Eos # (Auto) 0.1 Baso # (Auto) 0.0 Immature Gran # (Auto) 0.32 H Absolute Nucleated RBC 0.00 Immature Gran % 4 H Nucleated RBC % 0 Sodium 119 L* 119 L* 117 L* Potassium 4.2 Chloride 92 L Carbon Dioxide 17.8 L Anion Gap 9 BUN 16 Creatinine 0.6 Estim Creat Clear Calc 104.9 eGFR > 60 BUN/Creatinine Ratio 27 H Glucose 145 H Calculated Osmolality 244 L Uric Acid 3.3 L Calcium 9.3 Corrected Calcium 9.9 Phosphorus 2.9 Magnesium 1.9 Total Bilirubin 0.8 AST 91 H ALT 57 H Alkaline Phosphatase 134 H Total Protein 7.5 Albumin 3.3 L Globulin 4.2 H Albumin/Globulin Ratio 0.8 L Quality Measures Quality Measures none Advance care planning discussed with:: patient Assessment & Plan Assessment Current Active Medications: Generic Name Dose Route Start Last Admin Trade Name Freq PRN Reason Stop Dose Admin Acetaminophen 650 mg 02/09/25 16:42 Acetaminophen 325 Mg Tablet PO 03/11/25 16:41 Q6H PRN Fever >101.5 Acetaminophen 650 mg 02/09/25 16:52 02/13/25 18:53 Acetaminophen 325 Mg Tablet PO 03/11/25 16:51 650 mg Q6H PRN Administration PAIN SCALE 1-3 (mild Atorvastatin Calcium 40 mg 02/14/25 21:00 02/14/25 21:22 Atorvastatin Calcium 20 Mg Tablet PO 03/16/25 20:59 Not Given HS JOE Citric Acid/Sodium Citrate 30 ml 02/11/25 21:00 02/15/25 11:47 Citric Acid/Sodium Citr 15 Ml Udc (Bicitra) PO 03/13/25 20:59 Not Given BID JOE Dextrose 25 ml 02/09/25 16:56 Dextrose 50%-Water Inj 50 Ml Syringe IV 03/11/25 16:55 Q15MIN PRN BG 50-70 responsive npo pt Dextrose 50 ml 02/09/25 16:56 Dextrose 50%-Water Inj 50 Ml Syringe IV 03/11/25 16:55 Q15MIN PRN BG <50 OR BG <70 & pt unresponsive Glucagon 1 mg 02/09/25 16:56 Glucagon Inj 1 Mg Vial IM Q15MIN PRN BG <70, and no IV access Heparin Sodium (Porcine) 5,000 unit 02/14/25 09:15 02/15/25 05:09 Heparin Sod Inj 5000 Unit/Ml Vial SC 02/28/25 09:14 5,000 unit Q8HR JOE Administration Hydralazine HCl 10 mg 02/15/25 05:16 Hydralazine Inj 20 Mg/Ml Vial IV 03/17/25 05:15 Q2H PRN SBP > 180mmHg Levofloxacin/Dextrose 750 mg in 150 mls @ 100 mls/hr 02/12/25 09:00 02/15/25 09:03 Levaquin Ivpb IV 02/19/25 08:59 100 mls/hr QDAY JOE Administration Immune Globulin 20 gm/ Immune 300 mls @ 50 mls/hr 02/14/25 10:30 02/15/25 10:10 Globulin 10 gm/ IV IV 02/18/25 16:29 50 mls/hr Miscellaneous Supplies QDAY@1030 JOE Administration Sodium Chloride 500 ml/ IV 500 mls @ 30 mls/hr 02/15/25 09:30 02/15/25 10:00 Miscellaneous Supplies IV 02/16/25 02:09 30 mls/hr X1 ONE Administration Insulin Glargine 10 unit 02/09/25 17:00 02/15/25 09:04 Insulin Glargine (Lantus) 5 Unit/0.05 Ml (Per 5 Units) SC 03/11/25 16:59 Not Given QDAY [facility] Insulin Human Lispro 0 unit 02/14/25 18:00 02/15/25 11:51 Insulin Lispro (Admelog) 1 Unit/0.01 Ml Unit SC 03/16/25 17:59 Not Given Q6HR [facility] Protocol Metoclopramide HCl 5 mg 02/11/25 21:00 02/15/25 11:49 Metoclopramide 5 Mg Tablet PO 03/13/25 20:59 Not Given BID [facility] Ondansetron HCl 4 mg 02/09/25 16:42 Ondansetron Inj 2 Mg/Ml Inj 2 Ml IV 03/11/25 16:41 Q6H PRN NAUSEA OR VOMITING Protocol Pantoprazole Sodium 40 mg 02/10/25 21:00 02/15/25 09:03 Pantoprazole Inj 40 Mg Vial IV 03/12/25 20:59 40 mg BID JOE Administration Sodium Chloride 1 gm 02/14/25 17:15 02/15/25 05:07 Sodium Chloride 1 Gm Tablet PO 03/16/25 17:14 Not Given TID JOE Plan Mr. Rodriguez is a 69-year-old gentleman with past medical history significant for type 2 diabetes, hypertension, dyslipidemia presented to the emergency department with weakness cough and fatigue going on for the last 1 week and consulted for Acute kidney Injury # Hypoosmolar hyponatremia Likely due to SIADH -Sodium at the time of admission is 123 -On 02/15/2025, sodium is 119 Plan -Started on 3%NS and recommended to increase rate to 50ml/hr if sodium levels doesnt improve -Monitor sodium levels -Will follow up with CSF analysis -Started on sodium tablets 1gm p.o. BID # Non-anion gap metabolic acidosis, resolving -Patient was found to have low bicarb level since the time of admission with normal anion gap -Bicarb is 17.8 on 02/15/25 # Acute kidney injury, resolved Likely pain in the setting of sepsis and dehydration -Patient is admitted to the hospital with complaints of cough, weakness and fatigue -Patient's baseline creatinine is not available -Creatinine at the time of admission on 02/09/2025 is 1.4 > 02/12/2025, BUN 18, creatinine 0.7 -Renal ultrasound ordered did not show any significant pathology -no hydronephrosis or ureteral calculi -Patient was found to have 3+ blood, 6 RBC on urine analysis after PRBC transfusion, which could be likely due to blood transfusion reaction Plan -Repeat urine analysis was ordered -Avoid nephrotoxic medication and renally dose medications #Lactic acidosis, resolved Lactic acid elevated at at the time of admission- 3.4, came back to normal levels #Sepsis #Community-acquired bilateral pneumonia #Diabetes mellitus type 2 not on chronic insulin therapy #Essential Hypertension #Hyperlipidemia #?Guillain Raritan syndrome -Rest of the medical conditions to be treated as per primary team Thank you for allowing us to involve in the care of the patient Patient plan of care was discussed with the attending physician, Dr. Mauro Brady, PGY1 Attending Provider Attestation/Addendum Patient seen and examined with resident physician Dr. Thomas. Note reviewed, agree with findings and recommendations. at bedside. Patient more alert and awake. Complaining of shortness of breath. DILMA resolved. 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 Sodium 117-despite salt tablets. Decided to proceed with 3% hypertonic saline. 35 mL/h no improvement--will increase to 50 mL/h once a central line is placed by ICU team. Spoke to Dr. Mackenzie. Non-anion gap metabolic acidosis --questionable etiology. Doubt renal tubular acidosis. Chloride normal. On Bicitra Repeat urinalysis showed specific gravity greater than 1030, blood 1+ with no RBCs. Dark discoloration of urine resolved. Significant Lower extremities-lumbar puncture was done by neurology. 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 Hemolysis resolved.
--- NOTE | 2025-02-15 16:42 | XR_ITS ---
Examination: AP chest single view TECHNIQUE: AP portable semiupright chest single view Examination time: 22,025 1558 hours Comparison February 09, 2025 INDICATIONS: Coughing and shortness of breath this week, bilateral pneumonia on chest film February 09, 2025, post central line placement FINDINGS: Right internal jugular central line tip SVC, no pneumothorax Bilateral perihilar basilar pneumonia Normal heart size IMPRESSION: Interval right internal jugular central line placement, tip satisfactory position
--- NOTE | 2025-02-15 17:07 | ESOP_ITS ---
Procedures Procedure Date / Time 02/15/25 1707 Central Line Placement Right IJ: Indication(s): other Informed consent obtained: from patient Time out done, and the following verified: correct patient, side and site, procedure, patient position and implants and/or equipment Patient placed on monitor/pulse ox: Yes Hand Hygiene: scrub, soap & water and alcohol-based hand rub Max Sterile Barrier Techniques used: cap, mask, sterile gown, sterile gloves and sterile full body drape Central line prep: Chlorhexidine scrub and sterile drapes applied Local anesthesia used: lidocaine 1% Amount of anesthesia used (mL): 3 Ultrasound used for placement: Yes Sterile Technique if Ultrasound used, including sterile gel: yes Central line lumen inserted: triple Post procedure: sutured in place, good blood return, all ports aspirated, flushed, capped and sterile dressing applied Post procedure x-ray: tip of catheter in good position and no pneumothorax seen Patient tolerated procedure: well and no complications EBL(ml): 5 Complications: none Procedure comment: Decision was made to place central line, consent was obtained, risks and benefits procedure was explained, consent given. Please refer to consent on file. The patient was placed in Trendelenburg position. The Right neck was prepped using chlorhexidine scrub and draped in sterile fashion. Using real-time ultrasound, with sterile probe cover and sterile gel, the introducer needle was inserted into the vein under direct ultrasound visualization. Venous blood was withdrawn. The syringe was removed and a guidewire was advanced into the introducer needle. The guidewire was visualized in the appropriate vein by ultrasound. A small incision was made at the skin surface with a scalpel and the introducer needle was exchanged for a dilator over the guidewire. After appropriate dilation was obtained, the dilator was exchanged over the wire for a central venous catheter. The wire was removed and the catheter was sutured in place. A biopatch was placed at the insertion site. A sterile op-site was placed over the catheter and biopatch. The patient tolerated the procedure without any hemodynamic compromise. At time of procedure completion, all ports aspirated and flushed properly. Chest X Ray afterwards, catheter in good position. Procedure was done under direct supervision of occupational health rn attending Dr.Madrid Norma Graves MD PGY-2
[2025-02-15 17:43] LABS: Sodium 118 mMol/L (136-145)
[2025-02-15 20:49] LABS: Sodium 123 mMol/L (136-145)
--- NOTE | 2025-02-15 21:34 | PD.NEUROPROG ---
Documentation for date of: 02/15/25 Subjective Subjective Interval history: Mr. Rodriguez was seen in telemetry today at the bedside with his . Continues to have generalized weakness in both upper and lower extremities. Tolerating IVIG well without any side effects. Ready mechanics are still low with the need for of -22. Exam - Neurology Vital Signs Temp Pulse Resp BP Pulse Ox O2 Del Method O2 Flow Rate 97.0 F 68 18 164/99 H 97 Room Air 3 02/15/25 19:49 02/15/25 19:49 02/15/25 19:49 02/15/25 19:49 02/15/25 19:49 02/15/25 19:49 02/15/25 16:00 Narrative Exam GENERAL APPEARANCE: Well hydrated, well-nourished in no acute distress. HEENT: Normocephalic, atraumatic, impaired extraocular movement. pupils: Equal reacting to light NECK: Supple, no JVD or bruits. CARDIOVASULAR: Heart: S1, S2 heard, regular without S3-S4 or murmur no rubs or gallops. LUNGS/CHEST: Clear to auscultation bilaterally. No rails, rhonchi, or wheezing. Normal inspection. ABDOMEN: Soft, nontender, with normal bowel sounds. No pulsatile masses. No rebound, rigidity, or guarding. Normal inspection and palpation. EXTREMITIES: Normal inspection and palpation. No edema, clubbing or cyanosis. SKIN: Warm and dry without rashes. Normal inspection. MUSCULOSKELETAL: No cervical, thoracic, lumbar or midline bony tenderness. Normal inspection. NEURO: Alert, awake and oriented x3. Cranial nerves: II through XII grossly intact. Speech and language: Monotonous, hypophonic speech. motor system: Tone and bulk: Normal: Strength: Significant proximal more than distal weakness in both upper and lower extremities. Deep tendon reflexes: Absent, bilaterally symmetrical. Plantar reflex: Downgoing bilaterally. Sensory system: Impaired to all modalities of sensation bilaterally. Rest of the exam: Limited. No signs of meningeal irritation noted. PSYCHIATRIC: Normal mood and affect. Objective Labs 02/15/25 05:24 02/15/25 22:45 Labs: Laboratory Results - last 24 hr 02/14/25 02/15/25 02/15/25 23:25 05:24 12:02 WBC 7.4 RBC 4.30 L Hgb 9.6 L Hct 29.7 L MCV 69 L MCH 22.3 L MCHC 32.3 RDW Std Deviation 53.9 H Plt Count 325 D Neut % (Auto) 74 Lymph % (Auto) 10 [place] % (Auto) 11 Eos % (Auto) 1 Baso % (Auto) 1 Neut # (Auto) 5.5 Lymph # (Auto) 0.8 L [place] # (Auto) 0.8 Eos # (Auto) 0.1 Baso # (Auto) 0.0 Immature Gran # (Auto) 0.32 H Absolute Nucleated RBC 0.00 Immature Gran % 4 H Nucleated RBC % 0 Sodium 119 L* 119 L* 117 L* Potassium 4.2 Chloride 92 L Carbon Dioxide 17.8 L Anion Gap 9 BUN 16 Creatinine 0.6 Estim Creat Clear Calc 104.9 eGFR > 60 BUN/Creatinine Ratio 27 H Glucose 145 H Calculated Osmolality 244 L Uric Acid 3.3 L Calcium 9.3 Corrected Calcium 9.9 Phosphorus 2.9 Magnesium 1.9 Total Bilirubin 0.8 AST 91 H ALT 57 H Alkaline Phosphatase 134 H Total Protein 7.5 Albumin 3.3 L Globulin 4.2 H Albumin/Globulin Ratio 0.8 L 02/15/25 02/15/25 17:10 20:15 WBC RBC Hgb Hct MCV MCH MCHC RDW Std Deviation Plt Count Neut % (Auto) Lymph % (Auto) [place] % (Auto) Eos % (Auto) Baso % (Auto) Neut # (Auto) Lymph # (Auto) [place] # (Auto) Eos # (Auto) Baso # (Auto) Immature Gran # (Auto) Absolute Nucleated RBC Immature Gran % Nucleated RBC % Sodium 118 L* 123 L Potassium Chloride Carbon Dioxide Anion Gap BUN Creatinine Estim Creat Clear Calc eGFR BUN/Creatinine Ratio Glucose Calculated Osmolality Uric Acid Calcium Corrected Calcium Phosphorus Magnesium Total Bilirubin AST ALT Alkaline Phosphatase Total Protein Albumin Globulin Albumin/Globulin Ratio Assessment & Plan Assessment and plan (1) Weakness generalized: Status: Acute Assessment and plan: Suspected Guillain-Spivey? syndrome/myasthenia gravis/transverse myelitis/viral encephalomyelitis CSF protein is elevated, will continue with IVIG for 4 more days with premedication. Continue with DVT prevention with teds and SCDs Continue to follow-up with pulmonary mechanics and transfer him to ICU for elective intubation if needed (2) Acute renal failure (ARF): Status: Acute Assessment and plan: Being closely followed followed by nephrology (3) Acute hyponatremia: Status: Acute Assessment and plan: Going to be on hypertonic saline as the sodium dropped from 1 23-1 18 (4) Pneumonia: Status: Acute Assessment and plan: Continue with IV antibiotics (5) Sepsis: Status: Acute Assessment and plan: Continue with IV antibiotics (6) Anemia: Status: Acute Assessment and plan: Continues to have low hemoglobin and hematocrit and low MCV Rest of the workup and management per primary team
--- NOTE | 2025-02-15 22:16 | PD.IMPROG ---
Documentation for date of: 02/15/25 Subjective Subjective Interval history: Patient evaluated Hemoglobin hematocrit 9.6 and 29.7 Exam Vital Signs Temp Pulse Resp BP Pulse Ox O2 Del Method O2 Flow Rate 97.0 F 68 18 164/99 H 97 Room Air 3 02/15/25 19:49 02/15/25 19:49 02/15/25 19:49 02/15/25 19:49 02/15/25 19:49 02/15/25 19:49 02/15/25 16:00 Objective Labs 02/15/25 05:24 02/15/25 20:15 Labs: Laboratory Results - last 24 hr 02/14/25 02/15/25 02/15/25 23:25 05:24 12:02 WBC 7.4 RBC 4.30 L Hgb 9.6 L Hct 29.7 L MCV 69 L MCH 22.3 L MCHC 32.3 RDW Std Deviation 53.9 H Plt Count 325 D Neut % (Auto) 74 Lymph % (Auto) 10 [place] % (Auto) 11 Eos % (Auto) 1 Baso % (Auto) 1 Neut # (Auto) 5.5 Lymph # (Auto) 0.8 L [place] # (Auto) 0.8 Eos # (Auto) 0.1 Baso # (Auto) 0.0 Immature Gran # (Auto) 0.32 H Absolute Nucleated RBC 0.00 Immature Gran % 4 H Nucleated RBC % 0 Sodium 119 L* 119 L* 117 L* Potassium 4.2 Chloride 92 L Carbon Dioxide 17.8 L Anion Gap 9 BUN 16 Creatinine 0.6 Estim Creat Clear Calc 104.9 eGFR > 60 BUN/Creatinine Ratio 27 H Glucose 145 H Calculated Osmolality 244 L Uric Acid 3.3 L Calcium 9.3 Corrected Calcium 9.9 Phosphorus 2.9 Magnesium 1.9 Total Bilirubin 0.8 AST 91 H ALT 57 H Alkaline Phosphatase 134 H Total Protein 7.5 Albumin 3.3 L Globulin 4.2 H Albumin/Globulin Ratio 0.8 L 02/15/25 02/15/25 17:10 20:15 WBC RBC Hgb Hct MCV MCH MCHC RDW Std Deviation Plt Count Neut % (Auto) Lymph % (Auto) [place] % (Auto) Eos % (Auto) Baso % (Auto) Neut # (Auto) Lymph # (Auto) [place] # (Auto) Eos # (Auto) Baso # (Auto) Immature Gran # (Auto) Absolute Nucleated RBC Immature Gran % Nucleated RBC % Sodium 118 L* 123 L Potassium Chloride Carbon Dioxide Anion Gap BUN Creatinine Estim Creat Clear Calc eGFR BUN/Creatinine Ratio Glucose Calculated Osmolality Uric Acid Calcium Corrected Calcium Phosphorus Magnesium Total Bilirubin AST ALT Alkaline Phosphatase Total Protein Albumin Globulin Albumin/Globulin Ratio Impressions Impression: # Acute posthemorrhagic anemia Hemorrhagic gastritis diverticulosis left colon Continue present treatment Assessment & Plan A&P Narrative # Drop in hemoglobin hematocrit multifactorial Stool culture pending Other laboratory data pending Consent obtained for fiberoptic esophagogastroduodenoscopy with possible biopsy possible therapeutic intervention under intravenous moderate sedation scheduled for tomorrow Clear liquid diet and n.p.o. midnight tonight Other medical problems include Bilateral pneumonia Gross electrolyte abnormalities with hyponatremia improving Essential hypertension Hyperlipidemia Thank you very much for the opportunity to participate in care of this patient Time Spent With Patient Time: Total time spent is greater than 50% in coordination of care (as documented) at patient's floor/unit and/or counseling patient:
[2025-02-15 23:10] LABS: Sodium 123 mMol/L (136-145)
[2025-02-15] MEDS: DEXTROSE 5%-WATER 500 ML 300 ML IV (23:37)
[2025-02-16] VITALS (73 sets, daily range): BP systolic 62–196; BP diastolic 36–117; PULSE 64–115; RESP 10–150; TEMP -14.1–36.5; O2SAT 92–100; BMI 27.3
[2025-02-16 01:13] LABS: Sodium 120 mMol/L (136-145)
[2025-02-16] MEDS: DEXTROSE 5%-WATER 500 ML 300 ML IV (01:41)
[2025-02-16] MEDS: INSULIN LISPRO (AdmeLOG) 1 UNIT/0.01 ML UNIT SC ×2 (01:42→05:12)
[2025-02-16] MEDS: KETOROLAC INJ 30 MG/ML VIAL 15 MG IVP (04:21)
[2025-02-16] MEDS: HEPARIN SOD INJ 5000 UNIT/ML VIAL SC ×3 (05:12→22:08)
[2025-02-16 05:19] LABS: Basophils % (Auto) 1 % (0-2.5); Eosinophils % (Auto) 1 % (0-10); Hematocrit 29.1 % (41.0-53.0); Hemoglobin 9.5 g/dL (13.5-16.0); Immature Granulocytes % (Auto) 4 % (0-0); Immature Granulocytes Auto 0.28 Thou/mm3 (0.00-0.00); Lymphocytes # (Auto) 0.8 Thou/mm3 (1.0-4.8); Lymphocytes % (Auto) 11 % (10-50); Mean Corpuscular HGB Conc 32.6 g/dl (31.0-37.0); Mean Corpuscular Hemoglobin 22.8 pg (25.0-35.0); Mean Corpuscular Volume 70 fL (80-100); Monocytes # (Auto) 0.7 Thou/mm3 (0.0-0.8); Monocytes % (Auto) 10 % (0-12); Neutrophils # (Auto) 5.4 Thou/mm3 (1.8-7.7); Neutrophils % (Auto) 75 % (37-80); Nucleated Red Blood Cell % 0 /100 WBC (0); Platelet Count 327 Thou/mm3 (140-440); RDW Standard Deviation 56.7 fL (35.1-43.9); Red Blood Count 4.16 Miln/mm3 (4.50-5.90); White Blood Count 7.2 Thou/mm3 (3.8-10.6)
[2025-02-16 05:45] LABS: Alanine Aminotransferase 63 U/L (10-49); Albumin, Serum 3.2 gm/dL (3.4-4.8); Albumin/Globulin Ratio 0.7 (1.2-2.2); Alkaline Phosphatase 134 U/L (46-116); Anion Gap 6 (7-16); Aspartate Amino Transferase 75 U/L (0-34); BUN/Creatinine Ratio 23 Ratio (12-20); Bilirubin,Total 0.6 mg/dL (0.3-1.2); Blood Urea Nitrogen 14 mg/dL (9-23); Calcium 9.2 mg/dL (8.3-10.6); Calcium (Corrected) 9.8 mg/dL (8.5-10.1); Carbon Dioxide 20.2 mMol/L (20.0-31.0); Chloride 92 mMol/L (98-107); Creatinine (Component) 0.6 mg/dL (0.6-1.3); Estimated Creatinine Clearance 113.6 mL/min (>60); Globulin 4.5 gm/dL (2.3-3.5); Glucose 183 mg/dL (74-106); Magnesium 1.7 mg/dL (1.6-2.6); Osmolality,Calculated 243 (275-295); Potassium 3.9 mMol/L (3.4-5.1); Total Protein 7.7 gm/dL (5.7-8.2); eGFR > 60 See Note
[2025-02-16 05:49] LABS: Sodium 118 mMol/L (136-145)
[2025-02-16] MEDS: PANTOPRAZOLE INJ 40 MG VIAL IV ×2 (08:03→21:09)
[2025-02-16] MEDS: SODIUM CHLORIDE 3%(Hypertonic) 500 ML in PRE-MIXED 1 BAG 30 ML IV (08:03)
[2025-02-16] MEDS: LEVOFLOXACIN/D5W 750MG IVPB 750 MG/150 ML BAG 100 MG IV (08:03)
[2025-02-16] MEDS: SOD PHOS ADDITIVE 22.5 MMOL in SODIUM CHLORIDE 0.9% 500 ML 500 ML 82.778 MMOL IV (08:03)
[2025-02-16 08:23] LABS: Sodium 120 mMol/L (136-145)
[2025-02-16 09:56] LABS: Base Excess -4 (-3-3); HCO3 21 mEq/L (20-26); Inspired Oxygen, FIO2 21 %; O2 Saturation 97 % (91-98); PCO2 34 mmHg (32.0-48.0); PO2 81 mmHg (83-108); pH, Arterial 7.39 (7.35-7.45)
[2025-02-16 09:59] LABS: Allen Test Performed/OK; Puncture Site Right Radial
[2025-02-16] MEDS: PRE MIXED IV (10:04)
[2025-02-16] MEDS: IMMUNE GLOB GA CA IV (10:04)
[2025-02-16 10:15] LABS: Sodium 121 mMol/L (136-145)
--- NOTE | 2025-02-16 11:15 | ESPR_ITS ---
Documentation for date of: 02/16/25 Subjective Subjective Interval history: Patient seen and assessed at bedside this morning. Patient states to be feeling about the same if not worse. Patient unable to move his lower extremities. Patient is only able to shrug his shoulders or tilt his head [id number]. Patient complaining of paper like sensation at the palate, noted to have possible vesicular rash/outbreak questionable oral herpes outbreak. Exam Vital Signs Temp Pulse Resp BP Pulse Ox O2 Del Method O2 Flow Rate 96.9 F 89 20 161/97 H 95 Room Air 3 02/16/25 08:00 02/16/25 08:00 02/16/25 08:00 02/16/25 08:00 02/16/25 08:00 02/16/25 08:00 02/15/25 16:00 Narrative Exam General: Awake. AO x4. HEENT: Normocephalic, atraumatic, dry mucous membranes. Vesicles noted on palate questionable oral herpes. Heart: Regular rate and rhythm, no murmurs. Lungs: Clear to auscultation with no wheezing or crackles. Abdomen: Soft, nondistended, nontender, positive bowel sounds. ?No guarding or rebound tenderness. Neurologic: Alert and oriented x4, bilateral lower extremity strength 0 out of 5. Only able to shrug shoulders. Sensation is different in both upper extremities. No sensation right lower extremity, light sensation left lower extremity to touch. Skin: No rash or ecchymoses. Objective Labs 02/17/25 05:30 02/17/25 16:16 Labs: Laboratory Results - last 24 hr 02/15/25 02/15/25 02/15/25 12:02 17:10 20:15 WBC RBC Hgb Hct MCV MCH MCHC RDW Std Deviation Plt Count Neut % (Auto) Lymph % (Auto) [place] % (Auto) Eos % (Auto) Baso % (Auto) Neut # (Auto) Lymph # (Auto) [place] # (Auto) Eos # (Auto) Baso # (Auto) Immature Gran # (Auto) Absolute Nucleated RBC Immature Gran % Nucleated RBC % Puncture Site ABG pH ABG pCO2 ABG pO2 ABG HCO3 ABG O2 Saturation ABG Base Excess FiO2 Sodium 117 L* 118 L* 123 L Potassium Chloride Carbon Dioxide Anion Gap BUN Creatinine Estim Creat Clear Calc eGFR BUN/Creatinine Ratio Glucose Calculated Osmolality Uric Acid 3.3 L Calcium Corrected Calcium Phosphorus Magnesium Total Bilirubin AST ALT Alkaline Phosphatase Total Protein Albumin Globulin Albumin/Globulin Ratio 02/15/25 02/16/25 02/16/25 22:45 00:56 04:37 WBC 7.2 RBC 4.16 L Hgb 9.5 L Hct 29.1 L MCV 70 L MCH 22.8 L MCHC 32.6 RDW Std Deviation 56.7 H Plt Count 327 Neut % (Auto) 75 Lymph % (Auto) 11 [place] % (Auto) 10 Eos % (Auto) 1 Baso % (Auto) 1 Neut # (Auto) 5.4 Lymph # (Auto) 0.8 L [place] # (Auto) 0.7 Eos # (Auto) 0.0 Baso # (Auto) 0.0 Immature Gran # (Auto) 0.28 H Absolute Nucleated RBC 0.00 Immature Gran % 4 H Nucleated RBC % 0 Puncture Site ABG pH ABG pCO2 ABG pO2 ABG HCO3 ABG O2 Saturation ABG Base Excess FiO2 Sodium 123 L 120 L 118 L* Potassium 3.9 Chloride 92 L Carbon Dioxide 20.2 Anion Gap 6 L BUN 14 Creatinine 0.6 Estim Creat Clear Calc 113.6 eGFR > 60 BUN/Creatinine Ratio 23 H Glucose 183 H Calculated Osmolality 243 L Uric Acid Calcium 9.2 Corrected Calcium 9.8 Phosphorus 2.0 L Magnesium 1.7 Total Bilirubin 0.6 AST 75 H ALT 63 H Alkaline Phosphatase 134 H Total Protein 7.7 Albumin 3.2 L Globulin 4.5 H Albumin/Globulin Ratio 0.7 L 02/16/25 02/16/25 02/16/25 07:52 09:50 09:57 WBC RBC Hgb Hct MCV MCH MCHC RDW Std Deviation Plt Count Neut % (Auto) Lymph % (Auto) [place] % (Auto) Eos % (Auto) Baso % (Auto) Neut # (Auto) Lymph # (Auto) [place] # (Auto) Eos # (Auto) Baso # (Auto) Immature Gran # (Auto) Absolute Nucleated RBC Immature Gran % Nucleated RBC % Puncture Site Right Radial ABG pH 7.39 ABG pCO2 34 ABG pO2 81 L ABG HCO3 21 ABG O2 Saturation 97 ABG Base Excess -4 L FiO2 21 Sodium 120 L 121 L Potassium Chloride Carbon Dioxide Anion Gap BUN Creatinine Estim Creat Clear Calc eGFR BUN/Creatinine Ratio Glucose Calculated Osmolality Uric Acid Calcium Corrected Calcium Phosphorus Magnesium Total Bilirubin AST ALT Alkaline Phosphatase Total Protein Albumin Globulin Albumin/Globulin Ratio ABG Interpretation ABG results: 02/16/25 09:50 ABG pH 7.39 ABG pCO2 34 ABG pO2 81 L ABG HCO3 21 ABG O2 Saturation 97 ABG Base Excess -4 L Quality Measures Quality Measures none Advance care planning discussed with:: patient Assessment & Plan Assessment Current Active Medications: Generic Name Dose Route Start Last Admin Trade Name Freq PRN Reason Stop Dose Admin Acetaminophen 650 mg 02/09/25 16:42 Acetaminophen 325 Mg Tablet PO 03/11/25 16:41 Q6H PRN Fever >101.5 Acetaminophen 650 mg 02/09/25 16:52 02/13/25 18:53 Acetaminophen 325 Mg Tablet PO 03/11/25 16:51 650 mg Q6H PRN Administration PAIN SCALE 1-3 (mild Atorvastatin Calcium 40 mg 02/14/25 21:00 02/15/25 22:10 Atorvastatin Calcium 20 Mg Tablet PO 03/16/25 20:59 Not Given HS JOE Citric Acid/Sodium Citrate 30 ml 02/11/25 21:00 02/16/25 08:24 Citric Acid/Sodium Citr 15 Ml Udc (Bicitra) PO 03/13/25 20:59 Not Given BID JOE Dextrose 25 ml 02/09/25 16:56 Dextrose 50%-Water Inj 50 Ml Syringe IV 03/11/25 16:55 Q15MIN PRN BG 50-70 responsive npo pt Dextrose 50 ml 02/09/25 16:56 Dextrose 50%-Water Inj 50 Ml Syringe IV 03/11/25 16:55 Q15MIN PRN BG <50 OR BG <70 & pt unresponsive Glucagon 1 mg 02/09/25 16:56 Glucagon Inj 1 Mg Vial IM Q15MIN PRN BG <70, and no IV access Heparin Sodium (Porcine) 5,000 unit 02/14/25 09:15 02/16/25 05:12 Heparin Sod Inj 5000 Unit/Ml Vial SC 02/28/25 09:14 5,000 unit Q8HR JOE Administration Hydralazine HCl 10 mg 02/15/25 05:16 Hydralazine Inj 20 Mg/Ml Vial IV 03/17/25 05:15 Q2H PRN SBP > 180mmHg Levofloxacin/Dextrose 750 mg in 150 mls @ 100 mls/hr 02/12/25 09:00 02/16/25 08:03 Levaquin Ivpb IV 02/19/25 08:59 100 mls/hr QDAY JOE Administration Immune Globulin 20 gm/ Immune 300 mls @ 50 mls/hr 02/14/25 10:30 02/16/25 10:04 Globulin 10 gm/ IV IV 02/18/25 16:29 50 mls/hr Miscellaneous Supplies QDAY@1030 JOE Administration Sodium Chloride 500 ml/ IV 500 mls @ 30 mls/hr 02/16/25 07:23 02/16/25 08:03 Miscellaneous Supplies IV 02/16/25 15:39 30 mls/hr X1 ONE Administration Sodium Phosphate 22.5 mmol/ 507.5 mls @ 82.778 mls/hr 02/16/25 07:31 02/16/25 08:03 Sodium Chloride IV 02/16/25 13:38 82.778 mls/hr X1 ONE Administration Insulin Glargine 10 unit 02/09/25 17:00 02/16/25 08:24 Insulin Glargine (Lantus) 5 Unit/0.05 Ml (Per 5 Units) SC 03/11/25 16:59 Not Given QDAY JOE Insulin Human Lispro 0 unit 02/14/25 18:00 02/16/25 05:12 Insulin Lispro (Admelog) 1 Unit/0.01 Ml Unit SC 03/16/25 17:59 1 unit Q6HR JOE Administration Protocol Metoclopramide HCl 5 mg 02/11/25 21:00 02/16/25 08:24 Metoclopramide 5 Mg Tablet PO 03/13/25 20:59 Not Given BID JOE Ondansetron HCl 4 mg 02/09/25 16:42 Ondansetron Inj 2 Mg/Ml Inj 2 Ml IV 03/11/25 16:41 Q6H PRN NAUSEA OR VOMITING Protocol Pantoprazole Sodium 40 mg 02/10/25 21:00 02/16/25 08:03 Pantoprazole Inj 40 Mg Vial IV 03/12/25 20:59 40 mg BID JOE Administration Sodium Chloride 1 gm 02/14/25 17:15 02/16/25 05:03 Sodium Chloride 1 Gm Tablet PO 03/16/25 17:14 Not Given TID [facility] Plan #Acute generalized weakness 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 Will continue with IVIG treatment. As he is respiratory muscles are getting weak with the progressive decrease in NIF we will need elective intubation. Continue with range of motion exercises. Follow-up with rest of the CSF analysis as it becomes available
[2025-02-16] MEDS: ACYCLOVIR IV ×2 (13:27→22:01)
[2025-02-16] MEDS: SODIUM CHLORIDE 0.9% IV ×2 (13:27→22:01)
[2025-02-16 13:39] LABS: Sodium 120 mMol/L (136-145)
--- NOTE | 2025-02-16 14:23 | PD.RESPRO ---
Documentation for date of: 02/16/25 Subjective Subjective Interval history: Patient seen today at the bedside fine awake, alert, oriented x 3. No overnight events reported. Vital signs significant for hypertension however patient continues to have trouble swallowing p.o. medications. Will continue with as needed IV antihypertensives at this time. Labs significant for improving and sodium levels. Patient continues to have weakness on all 4 extremities we will continue at this time with IVIG. Spoke to neurology service recommended completing IVIG for total of 5 days at this time. Per neurology patient is having vesicles and roots of oral cavity and was started on acyclovir by neurology service. Patient is pending CSF studies and MRI brain Exam Vital Signs Temp Pulse Resp BP Pulse Ox O2 Del Method O2 Flow Rate 97.7 F 85 16 169/96 H 96 Room Air 3 02/16/25 12:00 02/16/25 12:00 02/16/25 12:00 02/16/25 12:00 02/16/25 12:00 02/16/25 12:00 02/15/25 16:00 Narrative Exam Physical Exam GENERAL: NAD, AAOx3 HEENT: Moist mucosa. Eyes open, symmetrical, & clear CARDIO: Heart RRR, no obvious murmurs PULM: No noted coughing/dyspnea CTA B/L, no R/W/R GI: Abdomen soft, nondistended, no pain on palpation. BSx4 SKIN/MSK/EXT: mild edema bilateral lower extremities, no pain on palpation. Pedal pulses present B/L NEURO: AAOx3,weakness in all 4 extremities progressive, weakness noted in respiratory muscles Objective Labs 02/17/25 05:30 02/17/25 05:30 Labs: Laboratory Results - last 24 hr 02/15/25 02/15/25 02/15/25 17:10 20:15 22:45 WBC RBC Hgb Hct MCV MCH MCHC RDW Std Deviation Plt Count Neut % (Auto) Lymph % (Auto) [place] % (Auto) Eos % (Auto) Baso % (Auto) Neut # (Auto) Lymph # (Auto) [place] # (Auto) Eos # (Auto) Baso # (Auto) Immature Gran # (Auto) Absolute Nucleated RBC Immature Gran % Nucleated RBC % Puncture Site ABG pH ABG pCO2 ABG pO2 ABG HCO3 ABG O2 Saturation ABG Base Excess FiO2 Sodium 118 L* 123 L 123 L Potassium Chloride Carbon Dioxide Anion Gap BUN Creatinine Estim Creat Clear Calc eGFR BUN/Creatinine Ratio Glucose Calculated Osmolality Calcium Corrected Calcium Phosphorus Magnesium Total Bilirubin AST ALT Alkaline Phosphatase Total Protein Albumin Globulin Albumin/Globulin Ratio 02/16/25 02/16/25 02/16/25 00:56 04:37 07:52 WBC 7.2 RBC 4.16 L Hgb 9.5 L Hct 29.1 L MCV 70 L MCH 22.8 L MCHC 32.6 RDW Std Deviation 56.7 H Plt Count 327 Neut % (Auto) 75 Lymph % (Auto) 11 [place] % (Auto) 10 Eos % (Auto) 1 Baso % (Auto) 1 Neut # (Auto) 5.4 Lymph # (Auto) 0.8 L [place] # (Auto) 0.7 Eos # (Auto) 0.0 Baso # (Auto) 0.0 Immature Gran # (Auto) 0.28 H Absolute Nucleated RBC 0.00 Immature Gran % 4 H Nucleated RBC % 0 Puncture Site ABG pH ABG pCO2 ABG pO2 ABG HCO3 ABG O2 Saturation ABG Base Excess FiO2 Sodium 120 L 118 L* 120 L Potassium 3.9 Chloride 92 L Carbon Dioxide 20.2 Anion Gap 6 L BUN 14 Creatinine 0.6 Estim Creat Clear Calc 113.6 eGFR > 60 BUN/Creatinine Ratio 23 H Glucose 183 H Calculated Osmolality 243 L Calcium 9.2 Corrected Calcium 9.8 Phosphorus 2.0 L Magnesium 1.7 Total Bilirubin 0.6 AST 75 H ALT 63 H Alkaline Phosphatase 134 H Total Protein 7.7 Albumin 3.2 L Globulin 4.5 H Albumin/Globulin Ratio 0.7 L 02/16/25 02/16/25 02/16/25 09:50 09:57 13:22 WBC RBC Hgb Hct MCV MCH MCHC RDW Std Deviation Plt Count Neut % (Auto) Lymph % (Auto) [place] % (Auto) Eos % (Auto) Baso % (Auto) Neut # (Auto) Lymph # (Auto) [place] # (Auto) Eos # (Auto) Baso # (Auto) Immature Gran # (Auto) Absolute Nucleated RBC Immature Gran % Nucleated RBC % Puncture Site Right Radial ABG pH 7.39 ABG pCO2 34 ABG pO2 81 L ABG HCO3 21 ABG O2 Saturation 97 ABG Base Excess -4 L FiO2 21 Sodium 121 L 120 L Potassium Chloride Carbon Dioxide Anion Gap BUN Creatinine Estim Creat Clear Calc eGFR BUN/Creatinine Ratio Glucose Calculated Osmolality Calcium Corrected Calcium Phosphorus Magnesium Total Bilirubin AST ALT Alkaline Phosphatase Total Protein Albumin Globulin Albumin/Globulin Ratio ABG Interpretation ABG results: 02/16/25 09:50 ABG pH 7.39 ABG pCO2 34 ABG pO2 81 L ABG HCO3 21 ABG O2 Saturation 97 ABG Base Excess -4 L Quality Measures Quality Measures none Advance care planning discussed with:: patient Assessment & Plan Assessment Current Active Medications: Generic Name Dose Route Start Last Admin Trade Name Ilir PRN Reason Stop Dose Admin Acetaminophen 650 mg 02/09/25 16:42 Acetaminophen 325 Mg Tablet PO 03/11/25 16:41 Q6H PRN Fever >101.5 Acetaminophen 650 mg 02/09/25 16:52 02/13/25 18:53 Acetaminophen 325 Mg Tablet PO 03/11/25 16:51 650 mg Q6H PRN Administration PAIN SCALE 1-3 (mild Atorvastatin Calcium 40 mg 02/14/25 21:00 02/15/25 22:10 Atorvastatin Calcium 20 Mg Tablet PO 03/16/25 20:59 Not Given HS JOE Citric Acid/Sodium Citrate 30 ml 02/11/25 21:00 02/16/25 08:24 Citric Acid/Sodium Citr 15 Ml Udc (Bicitra) PO 03/13/25 20:59 Not Given BID JOE Dextrose 25 ml 02/09/25 16:56 Dextrose 50%-Water Inj 50 Ml Syringe IV 03/11/25 16:55 Q15MIN PRN BG 50-70 responsive npo pt Dextrose 50 ml 02/09/25 16:56 Dextrose 50%-Water Inj 50 Ml Syringe IV 03/11/25 16:55 Q15MIN PRN BG <50 OR BG <70 & pt unresponsive Glucagon 1 mg 02/09/25 16:56 Glucagon Inj 1 Mg Vial IM Q15MIN PRN BG <70, and no IV access Heparin Sodium (Porcine) 5,000 unit 02/14/25 09:15 02/16/25 13:27 Heparin Sod Inj 5000 Unit/Ml Vial SC 02/28/25 09:14 5,000 unit Q8HR JOE Administration Hydralazine HCl 10 mg 02/15/25 05:16 Hydralazine Inj 20 Mg/Ml Vial IV 03/17/25 05:15 Q2H PRN SBP > 180mmHg Levofloxacin/Dextrose 750 mg in 150 mls @ 100 mls/hr 02/12/25 09:00 02/16/25 08:03 Levaquin Ivpb IV 02/19/25 08:59 100 mls/hr QDAY JOE Administration Immune Globulin 20 gm/ Immune 300 mls @ 50 mls/hr 02/14/25 10:30 02/16/25 10:04 Globulin 10 gm/ IV IV 02/18/25 16:29 50 mls/hr Miscellaneous Supplies QDAY@1030 JOE Administration Sodium Chloride 500 ml/ IV 500 mls @ 30 mls/hr 02/16/25 07:23 02/16/25 08:03 Miscellaneous Supplies IV 02/16/25 15:39 30 mls/hr X1 ONE Administration Acyclovir Sodium 771 mg/ 265.42 mls @ 265.42 mls/hr 02/16/25 14:00 02/16/25 13:27 Sodium Chloride IV 02/23/25 13:59 265.42 mls/hr Q8HR JOE Administration Insulin Glargine 10 unit 02/09/25 17:00 02/16/25 08:24 Insulin Glargine (Lantus) 5 Unit/0.05 Ml (Per 5 Units) SC 03/11/25 16:59 Not Given QDAY JOE Insulin Human Lispro 0 unit 02/14/25 18:00 02/16/25 05:12 Insulin Lispro (Admelog) 1 Unit/0.01 Ml Unit SC 03/16/25 17:59 1 unit Q6HR JOE Administration Protocol Metoclopramide HCl 5 mg 02/11/25 21:00 02/16/25 08:24 Metoclopramide 5 Mg Tablet PO 03/13/25 20:59 Not Given BID JOE Ondansetron HCl 4 mg 02/09/25 16:42 Ondansetron Inj 2 Mg/Ml Inj 2 Ml IV 03/11/25 16:41 Q6H PRN NAUSEA OR VOMITING Protocol Pantoprazole Sodium 40 mg 02/10/25 21:00 02/16/25 08:03 Pantoprazole Inj 40 Mg Vial IV 03/12/25 20:59 40 mg BID JOE Administration Sodium Chloride 1 gm 02/14/25 17:15 02/16/25 13:28 Sodium Chloride 1 Gm Tablet PO 03/16/25 17:14 Not Given TID JOE Plan 69-year-old male with past medical history significant for diabetes type 2 on metformin, hypertension, hyperlipidemia who came into the ED with generalized weakness and worsening upper respiratory infection symptoms and admitted to [facility] for further management of sepsis secondary to community-acquired pneumonia. #Hypotonic hyponatremia Possibly secondary to SIADH vs psychogenic polydipsia vs beer potomania vs One[place]'s disease? Nephrology was consulted we will appreciate recommendations Urine sodium elevated pending Central line placement by ICU team in order to increase rate of hypertonic saline ? on hypertonic saline - Na [id number] ? on salt tablets ? Fluid restriction 1500 cc daily ? 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 #Generalized weakness Possibly secondary to hemolysis vs transfusion reaction Patient stated that he feels very weak and that he is not able to move his legs with decreased sensation on bilateral lower extremities CT head without contrast was negative for hemorrhage, midline shift or mass effect Patient with generalized weakness since Wednesday started in the lower extremities however has since spread to the upper extremities and is stating having some bowel and urinary dysfunction today he is also reporting some shortness of breath, Lumbar puncture performed by neurology service and recommended starting the patient on IVIG as GBS is still in the differential etiology likely more viral per neurology - on IVIG - on IV acyclovir - MRI brain w/wo contrast ordered - pending CSF studies ? Neuro consulted, appreciate recommendations #Hyperbilirubinemia-resolved #?Hemolytic anemia Possibly secondary to drug-induced vs acute transfusion related hemolysis vs autoimmune vs paroxysmal nocturnal hemoglobin Liver ultrasound was unremarkable LDH elevated, reticulocyte count elevated, fibrinogen elevated attempted to curbside, hematology, did not seem concerned about hemolysis states likely more related to sepsis, but will review chart. ? Follow-up haptoglobin ? Follow-up blood smear #Sepsis improving #Community-acquired bilateral pneumonia Patient came in with generalized weakness and worsening upper respiratory tract infection symptoms after failing outpatient antibiotics. Patient continues to have fevers, chills, productive cough, and stomach pain. Chest x-ray in the ED shows bilateral pneumonia. Physical exam significant for diminished lung sounds throughout all lung bases. Pro-Beltran elevated at 0.7. Lactic acid elevated at 3.4. Influenza and COVID-19 negative. was on ceftriaxone and doxycicline and were switched to levaquin Cocci negative, Blood cultures negative, Cocci negative -on levofloxacin 750 mg q day -Oxygen as needed as needed -Zofran as needed for nausea -Tylenol as needed for fevers #Gastric motility disorder #Acute GI bleed-Ruled out Possibly secondary to PUD vs esophageal varices vs diverticulosis question Patient hemoglobin has been downtrending since admission hemoglobin 7.1 Gastroenterology was consulted we greatly appreciate recommendations EGD showed normal esophagus but likely motility disorder Colonoscopy showed hemorhoids ? Transfuse if hemoglobin less than 7 ? Reglan #Acute microcytic anemia #Iron deficiency anemia Possibly secondary to PUD vs anemia of chronic disease vs diverticulosis vs malignancy? Iron panel show iron deficiency anemia with iron sat 10% and iron of 34 mcg/dL Gastroenterology was consulted for further workup, appreciate recommendations ? Follow-up CBC #Diabetes mellitus type 2 not on chronic insulin therapy Patient takes home metformin twice daily with meals. A1c 6.9 -sliding scale insulin -Continue Lantus 10u SQ daily -Hypoglycemic protocol in place #Essential Hypertension -Continue to monitor vital signs ? on amlodipine 5 mg p.o. daily #Hyperlipidemia -atorvastatin 40mg HS #Lactic acidosis resolved #Dehydration Lactic acid elevated at 3.4, most likely in the setting of sepsis and infection due to poor organ perfusion. Lactic acid downtrending to normal limits Patient discussed with my attending Dr. Mike Ramirez MD PGY-1 DVT prophylaxis: SCD Diet: NPO [place]: No Lines: PIV Supplemental O2: As needed CODE STATUS: Full code Disclaimer: Despite multiple revisions, due to the dictation software being used, the document bellow may not be free of grammatical errors including phonetic/typographic errors. However, this does not deter from our commitment to providing health care in the patient's best interest in mind. Attending Provider Attestation/Addendum I have examined the patient, reviewed labs and imaging findings, discussed the case with the resident(s), and reviewed entered orders. I agree with the plan of care as outlined in this note, with these additional summaries/recommendations: Patient seen at bedside. No acute overnight events. Patient continues to have severe generalized weakness, dysphagia, and shortness of breath. Sensation is intact throughout although diminished. Patient is status post lumbar puncture. CSF analysis showed WBC 19, RBC 40, glucose 75, and total protein 95. CSF Gram stain shows no organisms or WBCs seen. CSF sent for additional studies including autoimmune encephalitis panel and HSV. Patient was evalulated by medical team who noted oral vesicles although I do not see any at this time. We will continue IV acyclovir for now given the severity of patient's symptoms. Most likely patient has GBS vs transverse myelitis. Also possible Viral encephalitis. Patient's reports he traveled to [place] in October. denies any [id number] supplements although reports he was prescribed something for fungal infection in his feet. He denies any diarrhea or illness who within the last couple months. CT lumbar spine did reveal moderate left L5 ganglionic compression although likely chronic finding and would not explain patient's upper extremity weakness, dysphagia, or shortness of breath. Patient is still pending MRI brain. NIF score 24 this morning and we will continue to frequently monitor and low threshold for intubation if respiratory status worsens. Neurology following and patient started on IVIG with pretreatment medications. We will monitor for improvement. Patient also found to have hypoosmolar hypochloremic hyponatremia. Most likely related to SIADH versus GBS. Patient was started on salt tablets and hypertonic saline. S/P central line for hypertonic saline infusion. Bicitra started for metabolic acidosis. Hemoglobin stable at 9.5 today. Patient is status post EGD with no source of bleeding identified although did reveal large amount of food in the stomach suggestive of gastric motility disorder. Patient receiving IV Reglan. Colonoscopy only significant for hemorrhoids. Continue basal and bolus insulin for history of diabetes mellitus type 2. Patient failed swallow evaluation and currently NPO. Continue levofloxacin for bacterial pneumonia. Repeat hematology and chemistry panel in AM. Dr. Mike MD
--- NOTE | 2025-02-16 14:47 | PC.SS ---
Rounding: on Day 3 IVIG
--- NOTE | 2025-02-16 15:03 | PC.SS ---
Sent updated PT notes to Mary
--- NOTE | 2025-02-16 15:33 | PD.RESPRO ---
Documentation for date of: 02/16/25 Subjective Subjective Interval history: Mr. Rodriguez is a 69-year-old gentleman with past medical history significant for type 2 diabetes, hypertension, dyslipidemia presented to the emergency department with weakness cough and fatigue going on for the last [address] week. Patient went to [facility] and was given Augmentin, promethazine DM, inhalers. However he continued to have fever chills and productive sputum that he brought himself to the emergency department. In the ER vitals have been stable. Labs show hemoglobin significantly low at 8.6, sodium was 123, creatinine 1.4, Pro-Beltran 0.7, lactic acid 3.4, urinalysis shows a 1+ protein, no blood. Chest x-ray showed pneumonia. Sick EKG showed sinus tachycardia. In the emergency department patient did receive 2 L normal saline bolus, antibiotics. Repeat labs showed sodium 128, bicarbonate 19.7, creatinine improved to 1.0. His hemoglobin dropped to 7.1 needing 1 unit of blood transfusion. This morning his hemoglobin is 9.1, sodium 125. Urine showed significantly dark and [id number] colored and renal consultation was requested. Patient currently seen in medical floor. Entire family at bedside. Dr. Wei was called in for anemia. Hemolytic anemia workup in progress. Patient noted to have significant elevation in LDH. Repeat urinalysis showed 3+ blood with 6 RBCs. CK levels normal. 02/13/2025 Patient was seen and examined bedside. No acute overnight events. Denies any other complaints. Still found to be hyponatremic with sodium 125. Added salt tablets 1 g p.o. twice daily 02/14/2025 Patient is seen and examined at the bedside C/o difficulty in moving all 4 extremities. 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 Still remained hyponatremic despite sodium tablets, so started on 3%NS and recommended to monitor sodium levels 02/15/2025 Patient is seen and examined at the bedside in the telemetry Still had difficulty in moving the extremities, power is 1/5 in lower extremities and 4 -/5 in upper extremities. Single breath count is 6, likely impending respiratory failure. Had difficulty in swallowing and scheduled for speech evaluation today. Labs showed sodium of 119 and recommended to continue 3% NS at 40 mL/h and continue sodium checks every fourth hourly. If the sodium levels does not improve recommended to increase the rate of 3% NS 02/16/2025 Patient is seen and examined at bedside in the telemetry Patient had difficulty in swallowing and motor power seems to be worsening since yesterday. Patient's sodium improved to 123 yesterday for which sodium is discontinued and sodium levels came back to 118 Patient was restarted on 3% NaCl and will continue to monitor sodium levels Patient was started on IVIG in the suspicion of GBS, Dr. Stein is following up with the patient Exam Vital Signs Temp Pulse Resp BP Pulse Ox O2 Del Method O2 Flow Rate 97.7 F 85 16 169/96 H 96 Room Air 3 02/16/25 12:00 02/16/25 12:00 02/16/25 12:00 02/16/25 12:00 02/16/25 12:00 02/16/25 12:00 02/15/25 16:00 Narrative Exam General: Awake. HEENT: Normocephalic, atraumatic, mucous membranes moist. Heart: Regular rate and rhythm, no murmurs. Lungs: Clear to auscultation with no wheezing or crackles. Abdomen: Soft, nondistended, nontender, positive bowel sounds. ?No guarding or rebound tenderness. Neurologic: Alert and oriented x3, 0/5 power in the lower extremities and 4 -/5 in the upper extremities Extremities:Bilateral 3+ pitting pedal edema extending up to about the ankles Skin: No rash or ecchymoses. Objective Labs 02/17/25 05:30 02/17/25 16:16 Labs: Laboratory Results - last 24 hr 02/15/25 02/15/25 02/15/25 17:10 20:15 22:45 WBC RBC Hgb Hct MCV MCH MCHC RDW Std Deviation Plt Count Neut % (Auto) Lymph % (Auto) [place] % (Auto) Eos % (Auto) Baso % (Auto) Neut # (Auto) Lymph # (Auto) [place] # (Auto) Eos # (Auto) Baso # (Auto) Immature Gran # (Auto) Absolute Nucleated RBC Immature Gran % Nucleated RBC % Puncture Site ABG pH ABG pCO2 ABG pO2 ABG HCO3 ABG O2 Saturation ABG Base Excess FiO2 Sodium 118 L* 123 L 123 L Potassium Chloride Carbon Dioxide Anion Gap BUN Creatinine Estim Creat Clear Calc eGFR BUN/Creatinine Ratio Glucose Calculated Osmolality Calcium Corrected Calcium Phosphorus Magnesium Total Bilirubin AST ALT Alkaline Phosphatase Total Protein Albumin Globulin Albumin/Globulin Ratio 02/16/25 02/16/25 02/16/25 00:56 04:37 07:52 WBC 7.2 RBC 4.16 L Hgb 9.5 L Hct 29.1 L MCV 70 L MCH 22.8 L MCHC 32.6 RDW Std Deviation 56.7 H Plt Count 327 Neut % (Auto) 75 Lymph % (Auto) 11 [place] % (Auto) 10 Eos % (Auto) 1 Baso % (Auto) 1 Neut # (Auto) 5.4 Lymph # (Auto) 0.8 L [place] # (Auto) 0.7 Eos # (Auto) 0.0 Baso # (Auto) 0.0 Immature Gran # (Auto) 0.28 H Absolute Nucleated RBC 0.00 Immature Gran % 4 H Nucleated RBC % 0 Puncture Site ABG pH ABG pCO2 ABG pO2 ABG HCO3 ABG O2 Saturation ABG Base Excess FiO2 Sodium 120 L 118 L* 120 L Potassium 3.9 Chloride 92 L Carbon Dioxide 20.2 Anion Gap 6 L BUN 14 Creatinine 0.6 Estim Creat Clear Calc 113.6 eGFR > 60 BUN/Creatinine Ratio 23 H Glucose 183 H Calculated Osmolality 243 L Calcium 9.2 Corrected Calcium 9.8 Phosphorus 2.0 L Magnesium 1.7 Total Bilirubin 0.6 AST 75 H ALT 63 H Alkaline Phosphatase 134 H Total Protein 7.7 Albumin 3.2 L Globulin 4.5 H Albumin/Globulin Ratio 0.7 L 02/16/25 02/16/25 02/16/25 09:50 09:57 13:22 WBC RBC Hgb Hct MCV MCH MCHC RDW Std Deviation Plt Count Neut % (Auto) Lymph % (Auto) [place] % (Auto) Eos % (Auto) Baso % (Auto) Neut # (Auto) Lymph # (Auto) [place] # (Auto) Eos # (Auto) Baso # (Auto) Immature Gran # (Auto) Absolute Nucleated RBC Immature Gran % Nucleated RBC % Puncture Site Right Radial ABG pH 7.39 ABG pCO2 34 ABG pO2 81 L ABG HCO3 21 ABG O2 Saturation 97 ABG Base Excess -4 L FiO2 21 Sodium 121 L 120 L Potassium Chloride Carbon Dioxide Anion Gap BUN Creatinine Estim Creat Clear Calc eGFR BUN/Creatinine Ratio Glucose Calculated Osmolality Calcium Corrected Calcium Phosphorus Magnesium Total Bilirubin AST ALT Alkaline Phosphatase Total Protein Albumin Globulin Albumin/Globulin Ratio ABG Interpretation ABG results: 02/16/25 09:50 ABG pH 7.39 ABG pCO2 34 ABG pO2 81 L ABG HCO3 21 ABG O2 Saturation 97 ABG Base Excess -4 L Quality Measures Quality Measures none Advance care planning discussed with:: patient and spouse Assessment & Plan Assessment Current Active Medications: Generic Name Dose Route Start Last Admin Trade Name Freq PRN Reason Stop Dose Admin Acetaminophen 650 mg 02/09/25 16:42 Acetaminophen 325 Mg Tablet PO 03/11/25 16:41 Q6H PRN Fever >101.5 Acetaminophen 650 mg 02/09/25 16:52 02/13/25 18:53 Acetaminophen 325 Mg Tablet PO 03/11/25 16:51 650 mg Q6H PRN Administration PAIN SCALE 1-3 (mild Atorvastatin Calcium 40 mg 02/14/25 21:00 02/15/25 22:10 Atorvastatin Calcium 20 Mg Tablet PO 03/16/25 20:59 Not Given HS JOE Citric Acid/Sodium Citrate 30 ml 02/11/25 21:00 02/16/25 08:24 Citric Acid/Sodium Citr 15 Ml Udc (Bicitra) PO 03/13/25 20:59 Not Given BID JOE Dextrose 25 ml 02/09/25 16:56 Dextrose 50%-Water Inj 50 Ml Syringe IV 03/11/25 16:55 Q15MIN PRN BG 50-70 responsive npo pt Dextrose 50 ml 02/09/25 16:56 Dextrose 50%-Water Inj 50 Ml Syringe IV 03/11/25 16:55 Q15MIN PRN BG <50 OR BG <70 & pt unresponsive Glucagon 1 mg 02/09/25 16:56 Glucagon Inj 1 Mg Vial IM Q15MIN PRN BG <70, and no IV access Heparin Sodium (Porcine) 5,000 unit 02/14/25 09:15 02/16/25 13:27 Heparin Sod Inj 5000 Unit/Ml Vial SC 02/28/25 09:14 5,000 unit Q8HR JOE Administration Hydralazine HCl 10 mg 02/15/25 05:16 Hydralazine Inj 20 Mg/Ml Vial IV 03/17/25 05:15 Q2H PRN SBP > 180mmHg Levofloxacin/Dextrose 750 mg in 150 mls @ 100 mls/hr 02/12/25 09:00 02/16/25 08:03 Levaquin Ivpb IV 02/19/25 08:59 100 mls/hr QDAY JOE Administration Immune Globulin 20 gm/ Immune 300 mls @ 50 mls/hr 02/14/25 10:30 02/16/25 10:04 Globulin 10 gm/ IV IV 02/18/25 16:29 50 mls/hr Miscellaneous Supplies QDAY@1030 JOE Administration Sodium Chloride 500 ml/ IV 500 mls @ 30 mls/hr 02/16/25 07:23 02/16/25 08:03 Miscellaneous Supplies IV 02/16/25 15:39 30 mls/hr X1 ONE Administration Acyclovir Sodium 771 mg/ 265.42 mls @ 265.42 mls/hr 02/16/25 14:00 02/16/25 13:27 Sodium Chloride IV 02/23/25 13:59 265.42 mls/hr Q8HR JOE Administration Insulin Glargine 10 unit 02/09/25 17:00 02/16/25 08:24 Insulin Glargine (Lantus) 5 Unit/0.05 Ml (Per 5 Units) SC 03/11/25 16:59 Not Given QDAY JOE Insulin Human Lispro 0 unit 02/14/25 18:00 02/16/25 05:12 Insulin Lispro (Admelog) 1 Unit/0.01 Ml Unit SC 03/16/25 17:59 1 unit Q6HR JOE Administration Protocol Metoclopramide HCl 5 mg 02/11/25 21:00 02/16/25 08:24 Metoclopramide 5 Mg Tablet PO 03/13/25 20:59 Not Given BID JOE Ondansetron HCl 4 mg 02/09/25 16:42 Ondansetron Inj 2 Mg/Ml Inj 2 Ml IV 03/11/25 16:41 Q6H PRN NAUSEA OR VOMITING Protocol Pantoprazole Sodium 40 mg 02/10/25 21:00 02/16/25 08:03 Pantoprazole Inj 40 Mg Vial IV 03/12/25 20:59 40 mg BID JOE Administration Sodium Chloride 1 gm 02/14/25 17:15 02/16/25 13:28 Sodium Chloride 1 Gm Tablet PO 03/16/25 17:14 Not Given TID JOE Plan Mr. Rodriguez is a 69-year-old gentleman with past medical history significant for type 2 diabetes, hypertension, dyslipidemia presented to the emergency department with weakness cough and fatigue going on for the last 1 week and consulted for Acute kidney Injury # Hypoosmolar hyponatremia Likely due to SIADH -Sodium at the time of admission is 123 -Urine sodium is 167, urine specific gravity is 1.030 -both of them suggest possibility of SIADH, less suspicion of Branch's in view of normal to high blood pressures -On 02/16/2025, sodium is 118 Plan -Initially patient was started on salt tablets, as the sodium still seems to be declining, started on 3% NS at 40 mL/h but still sodium levels tend to be downtrending for which central line was placed and patient was started on 3% NS at 50 mL/h -Continue 3%NS at the rate of 50ml/hr -Monitor sodium levels -Will follow up with CSF analysis -Started on sodium tablets 1gm p.o. BID # Non-anion gap metabolic acidosis, resolved -Bicarb is 20.2 on 02/15/25 # Acute kidney injury, resolved Likely pain in the setting of sepsis and dehydration -Patient is admitted to the hospital with complaints of cough, weakness and fatigue -Patient's baseline creatinine is not available -Creatinine at the time of admission on 02/09/2025 is 1.4 > 02/12/2025, BUN 18, creatinine 0.7 -Renal ultrasound ordered did not show any significant pathology -no hydronephrosis or ureteral calculi -Patient was found to have 3+ blood, 6 RBC on urine analysis after PRBC transfusion, which could be likely due to blood transfusion reaction Plan -Avoid nephrotoxic medication and renally dose medications #Lactic acidosis, resolved Lactic acid elevated at at the time of admission- 3.4, came back to normal levels #Sepsis #Community-acquired bilateral pneumonia #Diabetes mellitus type 2 not on chronic insulin therapy #Essential Hypertension #Hyperlipidemia #?Guillain [place] syndrome -Rest of the medical conditions to be treated as per primary team Thank you for allowing us to involve in the care of the patient Patient plan of care was discussed with the attending physician, Dr. Mauro Brady, PGY1 Attending Provider Attestation/Addendum Patient seen and examined with resident physician Dr. Thomas. Note reviewed, agree with findings and recommendations. at bedside. Patient more alert and awake. Complaining of shortness of breath. DILMA resolved. 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 Sodium 117-despite salt tablets. Decided to proceed with 3% hypertonic saline. 35 mL/h no improvement--will increase to 50 mL/h once a central line is placed by ICU team. Spoke to Dr. Mackenzie. Non-anion gap metabolic acidosis --questionable etiology. Doubt renal tubular acidosis. Chloride normal. On Bicitra Repeat urinalysis showed specific gravity greater than 1030, blood 1+ with no RBCs. Dark discoloration of urine resolved. Significant Lower extremities-lumbar puncture was done by neurology. 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 Hemolysis resolved. Patient continues to have respiratory insufficiency.
[2025-02-16 16:25] LABS: Sodium 121 mMol/L (136-145)
--- NOTE | 2025-02-16 18:17 | PD.IMPROG ---
Documentation for date of: 02/16/25 Subjective Subjective Interval history: Patient evaluated hemoglobin hematocrit 9.5 and 29.1 Exam Vital Signs Temp Pulse Resp BP Pulse Ox O2 Del Method O2 Flow Rate 97.0 F 75 20 143/76 H 96 Room Air 3 02/16/25 16:00 02/16/25 16:00 02/16/25 16:00 02/16/25 16:00 02/16/25 16:00 02/16/25 16:00 02/15/25 16:00 Objective Labs 02/16/25 04:37 02/16/25 16:00 Labs: Laboratory Results - last 24 hr 02/15/25 02/15/25 02/16/25 20:15 22:45 00:56 WBC RBC Hgb Hct MCV MCH MCHC RDW Std Deviation Plt Count Neut % (Auto) Lymph % (Auto) [place] % (Auto) Eos % (Auto) Baso % (Auto) Neut # (Auto) Lymph # (Auto) [place] # (Auto) Eos # (Auto) Baso # (Auto) Immature Gran # (Auto) Absolute Nucleated RBC Immature Gran % Nucleated RBC % Puncture Site ABG pH ABG pCO2 ABG pO2 ABG HCO3 ABG O2 Saturation ABG Base Excess FiO2 Sodium 123 L 123 L 120 L Potassium Chloride Carbon Dioxide Anion Gap BUN Creatinine Estim Creat Clear Calc eGFR BUN/Creatinine Ratio Glucose Calculated Osmolality Calcium Corrected Calcium Phosphorus Magnesium Total Bilirubin AST ALT Alkaline Phosphatase Total Protein Albumin Globulin Albumin/Globulin Ratio 02/16/25 02/16/25 02/16/25 04:37 07:52 09:50 WBC 7.2 RBC 4.16 L Hgb 9.5 L Hct 29.1 L MCV 70 L MCH 22.8 L MCHC 32.6 RDW Std Deviation 56.7 H Plt Count 327 Neut % (Auto) 75 Lymph % (Auto) 11 [place] % (Auto) 10 Eos % (Auto) 1 Baso % (Auto) 1 Neut # (Auto) 5.4 Lymph # (Auto) 0.8 L [place] # (Auto) 0.7 Eos # (Auto) 0.0 Baso # (Auto) 0.0 Immature Gran # (Auto) 0.28 H Absolute Nucleated RBC 0.00 Immature Gran % 4 H Nucleated RBC % 0 Puncture Site Right Radial ABG pH 7.39 ABG pCO2 34 ABG pO2 81 L ABG HCO3 21 ABG O2 Saturation 97 ABG Base Excess -4 L FiO2 21 Sodium 118 L* 120 L Potassium 3.9 Chloride 92 L Carbon Dioxide 20.2 Anion Gap 6 L BUN 14 Creatinine 0.6 Estim Creat Clear Calc 113.6 eGFR > 60 BUN/Creatinine Ratio 23 H Glucose 183 H Calculated Osmolality 243 L Calcium 9.2 Corrected Calcium 9.8 Phosphorus 2.0 L Magnesium 1.7 Total Bilirubin 0.6 AST 75 H ALT 63 H Alkaline Phosphatase 134 H Total Protein 7.7 Albumin 3.2 L Globulin 4.5 H Albumin/Globulin Ratio 0.7 L 02/16/25 02/16/25 02/16/25 09:57 13:22 16:00 WBC RBC Hgb Hct MCV MCH MCHC RDW Std Deviation Plt Count Neut % (Auto) Lymph % (Auto) [place] % (Auto) Eos % (Auto) Baso % (Auto) Neut # (Auto) Lymph # (Auto) [place] # (Auto) Eos # (Auto) Baso # (Auto) Immature Gran # (Auto) Absolute Nucleated RBC Immature Gran % Nucleated RBC % Puncture Site ABG pH ABG pCO2 ABG pO2 ABG HCO3 ABG O2 Saturation ABG Base Excess FiO2 Sodium 121 L 120 L 121 L Potassium Chloride Carbon Dioxide Anion Gap BUN Creatinine Estim Creat Clear Calc eGFR BUN/Creatinine Ratio Glucose Calculated Osmolality Calcium Corrected Calcium Phosphorus Magnesium Total Bilirubin AST ALT Alkaline Phosphatase Total Protein Albumin Globulin Albumin/Globulin Ratio Impressions Impression: Diverticulosis left colon Hemorrhagic gastritis Continue current management ABG Interpretation ABG results: 02/16/25 09:50 ABG pH 7.39 ABG pCO2 34 ABG pO2 81 L ABG HCO3 21 ABG O2 Saturation 97 ABG Base Excess -4 L Assessment & Plan A&P Narrative # Drop in hemoglobin hematocrit multifactorial Stool culture pending Other laboratory data pending Consent obtained for fiberoptic esophagogastroduodenoscopy with possible biopsy possible therapeutic intervention under intravenous moderate sedation scheduled for tomorrow Clear liquid diet and n.p.o. midnight tonight Other medical problems include Bilateral pneumonia Gross electrolyte abnormalities with hyponatremia improving Essential hypertension Hyperlipidemia Thank you very much for the opportunity to participate in care of this patient Time Spent With Patient Time: Total time spent is greater than 50% in coordination of care (as documented) at patient's floor/unit and/or counseling patient:
--- NOTE | 2025-02-16 19:36 | XR_ITS ---
Examination: AP chest single view TECHNIQUE: AP portable semiupright chest single view Exam date and time: 18/12/2024, 1853 hours Comparison February 15, 2025 INDICATION: Hypoxic respiratory failure postintubation FINDINGS: Bibasilar pneumonia Endotracheal tube tip 5 cm above mark Right internal jugular central line tip SVC, no pneumothorax IMPRESSION: Bibasilar pneumonia
[2025-02-16] MEDS: ROCURONIUM INJ 10 MG/ML VIAL 10 ML 80 MG IVP (20:10)
[2025-02-16] MEDS: ETOMIDATE INJ 2 MG/ML VIAL 10 ML 20 MG IVP (20:11)
[2025-02-16] MEDS: fentaNYL 2,500 MCG/250 ML BAG 2,500 MCG/250 ML BAG IV (20:13)
[2025-02-16] MEDS: PROPOFOL 1,000 MG IVPB 1,000 MG/100 ML VIAL 2.313 MG IV (20:13)
[2025-02-16] MEDS: hydrALAZINE INJ 20 MG/ML VIAL 10 MG IV (20:17)
--- NOTE | 2025-02-16 20:22 | PD.RESPROC ---
Procedures Procedure Date / Time 02/16/252021 Intubation Indication(s): inability to protect airway Informed consent obtained: obtained from surrogate decision maker Time out done, and the following verified: correct patient, side and site, procedure, patient position and implants and/or equipment Sedative: etomidate Mg given: 20 Paralytic: rocuronium Mg given: 80 Laryngoscope: Jose Assist device used: other (GlideScope) ET tube size: 8 ET tube uncuffed: No Tube secured depth (cm): 22 Tube secured location: lips Tube placement confirmation: visualized tube passing through cords, equal breath sounds bilaterally, no breath sounds over epigastrium and confirmation by capnometry Patient tolerated procedure: well EBL(ml): 1 Additional comments: Pre-oxygenation was provided with BVM. Induction was provided with 20 mg etomodate and 80 mg rocuronium. Orotracheal intubation was performed first using Mactinosh blade before using video laryngoscopy with 8 endotracheal tube and with excellent view of vocal cords. Endotracheal tube position was confirmed by capnography. The endotracheal tube was secured at 22cm at gums. Proper intratracheal position of the endotracheal tube was verified on portable chest -x-ray. Attending Dr. Allison was present and ultimately performed procedure after initial attempt by me was unsuccessful. The patient tolerated the procedure well and there were no complications. Aye Stein, PGY-2
--- NOTE | 2025-02-16 20:38 | XR_ITS ---
Examination examination: AP chest single view TECHNIQUE: AP portable semiupright chest single view Examination type: February 16, 2025 1947 hours Comparison February 16, 2025 1853 hours INDICATIONS: Post orogastric tube placement FINDINGS: Mild bibasilar pneumonia Orogastric tube in the stomach Endotracheal tube tip 6 cm above Brittney Right internal jugular central line tip in satisfactory position SVC IMPRESSION: Bibasilar pneumonia
--- NOTE | 2025-02-16 20:54 | ESCONSULT_ITS ---
<Statement entered by Jefry Zuniga MD - 02/19/25 05:05> I reviewed above note and agree with findings and plans. I have also personally examined the patient with medicine team and went over assessment and plan with medical team including hospitality internship and resident physician. HPI Data of Consult Consult date: 02/16/25 Requesting Physician: Patel Mckeon MD Admitting Provider: Rafael Lewis MD Attending Provider: Patel Mckeon MD Primary Care Provider: Farhat Ramirez MD Consult Narrative Reason for consult: Impending respiratory failure History of present illness: Mr. David Botello is a 69 year old gentleman with a past medical history significant for diabetes mellitus, hypertension, hyperlipidemia who presented to the ED on 02/09/2025 due to symptoms of progressively worsening cough,weakness and fatigue of 1 week duration. Due to the patient being intubated, history was obtained through chart review. Patient had apparently failed outpatient treatment with amoxicillin/clavulanate, promenthazine and inhalers for his symptoms. His symptoms evolved to include the development of fevers chills and sputum production. Initial workup in the ED was significant for hyponatremia of 123, DILMA with a creatinine of 1.4 and lactic acidosis of 3.4. Chest Xray showed pneumonia for which he was subsequently admitted. During the course of the patient's admission his began to experience lower limb weakness which gradually progressed to involve his upper extremities. Due to concern for albarran barre syndrome, Neurology was consulted who recommended an LP and IVG. Due to the patient's worsening lower extremity weakness in addition to the development of dysphagia and difficulty breathing, the patient NIF were tested showing 3 readings of -16. At this point, ICU was consulted for intubation due to concern for impending respiratory failure. cc:: cc: Patel Mckeon MD Review of Systems Review of Systems ROS Unobtainable: due to endotracheal tube Exam Vital Signs Temp Pulse Resp BP Pulse Ox O2 Del Method O2 Flow Rate 97.0 F 87 20 192/103 H 96 Room Air 3 02/16/25 16:00 02/16/25 20:17 02/16/25 16:00 02/16/25 20:17 02/16/25 16:00 02/16/25 16:00 02/15/25 16:00 Narrative Exam General: GCS 3T HEENT: NC/AT, MMM, ETT in place, pupils reactive to light Lungs: CTAB, no wheezing or crackles CVS: RRR, no murmurs rubs or gallops ABD: soft, non-tender, non-distended : Ortega in place EXT: radial pulses 2+ BL, DP pulses 2 + BL Neuro: Unable to assess Results Labs 02/16/25 04:37 02/16/25 20:45 Labs: Short CBC 02/16/25 Range/Units 04:37 WBC 7.2 (3.8-10.6) Thou/mm3 Hgb 9.5 L (13.5-16.0) g/dL Hct 29.1 L (41.0-53.0) % Plt Count 327 (140-440) Thou/mm3 BMP 02/15/25 02/16/25 02/16/25 22:45 00:56 04:37 Sodium 123 L 120 L 118 L* Potassium 3.9 Chloride 92 L Carbon Dioxide 20.2 BUN 14 Creatinine 0.6 Glucose 183 H Calcium 9.2 02/16/25 02/16/25 02/16/25 07:52 09:57 13:22 Sodium 120 L 121 L 120 L Potassium Chloride Carbon Dioxide BUN Creatinine Glucose Calcium 02/16/25 16:00 Sodium 121 L Potassium Chloride Carbon Dioxide BUN Creatinine Glucose Calcium Liver Function 02/16/25 Range/Units 04:37 Total Bilirubin 0.6 (0.3-1.2) mg/dL AST 75 H (0-34) U/L ALT 63 H (10-49) U/L Alkaline Phosphatase 134 H (46-116) U/L Albumin 3.2 L (3.4-4.8) gm/dL ABG Interpretation ABG results: 02/16/25 09:50 ABG pH 7.39 ABG pCO2 34 ABG pO2 81 L ABG HCO3 21 ABG O2 Saturation 97 ABG Base Excess -4 L Quality Measures Quality Measures none Advance care planning discussed with:: child Medications Home Medications and Allergies Allergies Allergy/AdvReac Type Severity Reaction Status Date / Time No Known Allergies Allergy Verified 02/09/25 13:35 Visit Medications Acetaminophen (Acetaminophen 325 Mg Tablet) 650 mg PO Q6H PRN PRN Reason: Fever >101.5 Stop: 03/11/25 16:41 Acetaminophen (Acetaminophen 325 Mg Tablet) 650 mg PO Q6H PRN PRN Reason: PAIN SCALE 1-3 (mild Stop: 03/11/25 16:51 Last Admin: 02/13/25 18:53 Dose: 650 mg Atorvastatin Calcium (Atorvastatin Calcium 20 Mg Tablet) 40 mg PO HS [facility] Stop: 03/16/25 20:59 Last Admin: 02/15/25 22:10 Dose: Not Given Citric Acid/Sodium Citrate (Citric Acid/Sodium Citr 15 Ml Udc (Bicitra)) 30 ml PO BID [facility] Stop: 03/13/25 20:59 Last Admin: 02/16/25 08:24 Dose: Not Given Dextrose (Dextrose 50%-Water Inj 50 Ml Syringe) 25 ml IV Q15MIN PRN PRN Reason: BG 50-70 responsive npo pt Stop: 03/11/25 16:55 Dextrose (Dextrose 50%-Water Inj 50 Ml Syringe) 50 ml IV Q15MIN PRN PRN Reason: BG <50 OR BG <70 & pt unresponsive Stop: 03/11/25 16:55 Glucagon (Glucagon Inj 1 Mg Vial) 1 mg IM Q15MIN PRN PRN Reason: BG <70, and no IV access Heparin Sodium (Porcine) (Heparin Sod Inj 5000 Unit/Ml Vial) 5,000 unit SC Q8HR [facility] Stop: 02/28/25 09:14 Last Admin: 02/16/25 13:27 Dose: 5,000 unit Hydralazine HCl (Hydralazine Inj 20 Mg/Ml Vial) 10 mg IV Q2H PRN PRN Reason: SBP > 180mmHg Stop: 03/17/25 05:15 Last Admin: 02/16/25 20:17 Dose: 10 mg Levofloxacin/Dextrose (Levaquin Ivpb) 750 mg in 150 mls @ 100 mls/hr IV QDAY [facility] Stop: 02/19/25 08:59 Last Admin: 02/16/25 08:03 Dose: 100 mls/hr Immune Globulin 20 gm/ Immune Globulin 10 gm/ IV Miscellaneous Supplies 300 mls @ 50 mls/hr IV QDAY@1030 [facility] Stop: 02/18/25 16:29 Last Admin: 02/16/25 10:04 Dose: 50 mls/hr Acyclovir Sodium 771 mg/ (Sodium Chloride) 265.42 mls @ 265.42 mls/hr IV Q8HR [facility] Stop: 02/23/25 13:59 Last Admin: 02/16/25 13:27 Dose: 265.42 mls/hr Propofol (Diprivan Ivpb) 1,000 mg in 100 mls @ 2.313 mls/hr IV .Q24H PRN; Protocol PRN Reason: PER PROTOCOL Stop: 03/18/25 19:39 Last Admin: 02/16/25 20:13 Dose: 5 mcg/kg/min, 2.313 mls/hr Fentanyl Citrate (Sublimaze Inj 2,500 Mcg/250 Ml Bag) 2,500 mcg in 250 mls @ 2.5 mls/hr IV .Q24H PRN; Protocol PRN Reason: PER PROTOCOL Stop: 02/21/25 19:39 Last Admin: 02/16/25 20:13 Dose: 25 mcg/hr, 2.5 mls/hr Norepinephrine/Dextrose (Levophed In D5w 8mg/250ml) 8 mg in 250 mls @ 7.229 mls/hr IV .Q24H PRN; Protocol PRN Reason: PER PROTOCOL Stop: 03/18/25 19:40 Insulin Glargine (Insulin Glargine (Lantus) 5 Unit/0.05 Ml (Per 5 Units)) 10 unit SC QDAY [facility] Stop: 03/11/25 16:59 Last Admin: 02/16/25 08:24 Dose: Not Given Insulin Human Lispro (Insulin Lispro (Admelog) 1 Unit/0.01 Ml Unit) 0 unit SC Q6HR [facility]; Protocol Stop: 03/16/25 17:59 Last Admin: 02/16/25 18:12 Dose: Not Given Metoclopramide HCl (Metoclopramide 5 Mg Tablet) 5 mg PO BID [facility] Stop: 03/13/25 20:59 Last Admin: 02/16/25 08:24 Dose: Not Given Ondansetron HCl (Ondansetron Inj 2 Mg/Ml Inj 2 Ml) 4 mg IV Q6H PRN; Protocol PRN Reason: NAUSEA OR VOMITING Stop: 03/11/25 16:41 Pantoprazole Sodium (Pantoprazole Inj 40 Mg Vial) 40 mg IV BID [facility] Stop: 03/12/25 20:59 Last Admin: 02/16/25 08:03 Dose: 40 mg Sodium Chloride (Sodium Chloride 1 Gm Tablet) 1 gm PO TID JOE Stop: 03/16/25 17:14 Last Admin: 02/16/25 13:28 Dose: Not Given Discontinued Medications Acetaminophen (Acetaminophen 500 Mg Tablet) 1,000 mg PO X1 ONE Stop: 02/09/25 14:01 Last Admin: 02/09/25 14:07 Dose: 1,000 mg Acetaminophen (Acetaminophen 325 Mg Tablet) 650 mg PO X1 ONE Stop: 02/14/25 00:19 Last Admin: 02/14/25 00:49 Dose: 650 mg Amlodipine Besylate (Amlodipine Besylate 5 Mg Tablet) 5 mg PO QDAY [facility] Stop: 03/12/25 08:59 Last Admin: 02/10/25 08:43 Dose: 5 mg Bisacodyl (Bisacodyl 10 Mg Supp) 10 mg OR X1 PRN PRN Reason: Gas pain Stop: 02/12/25 20:32 Diphenhydramine HCl (Diphenhydramine Inj 50 Mg/Ml Vial) 25 mg IV [id number] PRN PRN Reason: MODERATE SEDATION Stop: 02/11/25 17:42 Diphenhydramine HCl (Diphenhydramine Inj 50 Mg/Ml Vial) 25 mg IV [id number] PRN PRN Reason: MODERATE SEDATION Stop: 02/12/25 20:32 Diphenhydramine HCl (Diphenhydramine Inj 50 Mg/Ml Vial) 25 mg IV X1 ONE Stop: 02/14/25 10:01 Last Admin: 02/14/25 10:16 Dose: 25 mg Etomidate (Etomidate Inj 2 Mg/Ml Vial 10 Ml) 20 mg IVP X1 ONE Stop: 02/16/25 19:37 Last Admin: 02/16/25 20:11 Dose: 20 mg Fentanyl Citrate (Fentanyl Cit Inj 50 Mcg/Ml Amp 2ml) 50 mcg IV Q2M PRN PRN Reason: MODERATE SEDATION Stop: 02/11/25 17:42 Fentanyl Citrate (Fentanyl Cit Inj 50 Mcg/Ml Amp 2ml) 50 mcg IV Q2M PRN PRN Reason: MODERATE SEDATION Stop: 02/12/25 20:32 Heparin Sodium (Porcine) (Heparin Sod Inj 5000 Unit/Ml Vial) 5,000 unit SC Q8HR [facility] Stop: 02/23/25 21:59 Last Admin: 02/10/25 15:04 Dose: 5,000 unit Sodium Chloride (Ns) 1,000 mls @ 999 mls/hr IV .Q1H1M ONE Stop: 02/09/25 14:49 Last Infusion: 02/09/25 16:59 Dose: Infused Ceftriaxone Sodium 2 gm/ (Sodium Chloride) 50 mls @ 100 mls/hr IV X1 ONE Stop: 02/09/25 14:29 Last Infusion: 02/09/25 16:53 Dose: Infused Azithromycin 500 mg/ Sodium (Chloride) 250 mls @ 250 mls/hr IV X1 ONE Stop: 02/09/25 15:48 Last Infusion: 02/09/25 16:53 Dose: Infused Lactated Ringer's (Lactated Ringers) 1,000 mls @ 999 mls/hr IV .Q1H1M ONE Stop: 02/09/25 16:39 Last Infusion: 02/09/25 17:58 Dose: Infused Sodium Chloride (Ns) 1,000 mls @ 80 mls/hr IV .[id number] JOE Stop: 03/11/25 16:59 Last Admin: 02/10/25 00:11 Dose: 80 mls/hr Ceftriaxone Sodium 1,000 mg/ (Sodium Chloride) 50 mls @ 100 mls/hr IV QDAY [facility] Stop: 02/16/25 16:58 Last Admin: 02/11/25 08:00 Dose: 100 mls/hr Doxycycline Hyclate 100 mg/ (Sodium Chloride) 100 mls @ 100 mls/hr IV BID [facility] Stop: 02/16/25 20:59 Last Admin: 02/11/25 08:00 Dose: 100 mls/hr Magnesium Sulfate (Magnesium Sulfate Ivpb) 4 gm in 50 mls @ 12.5 mls/hr IV X1 ONE Stop: 02/10/25 11:28 Last Admin: 02/10/25 08:43 Dose: 12.5 mls/hr Sodium Chloride (Ns) 1,000 mls @ 100 mls/hr IV .Q10H [facility] Stop: 03/12/25 16:27 Last Admin: 02/11/25 03:00 Dose: 100 mls/hr Magnesium Sulfate (Magnesium Sulfate Ivpb) 4 gm in 50 mls @ 12.5 mls/hr IV X1 ONE Stop: 02/11/25 11:32 Last Admin: 02/11/25 08:00 Dose: 12.5 mls/hr Sodium Chloride (Ns) 1,000 mls @ 150 mls/hr IV .Q6H40M JOE Stop: 03/13/25 11:02 Last Admin: 02/14/25 01:42 Dose: 150 mls/hr Magnesium Sulfate (Magnesium Sulfate Ivpb) 4 gm in 50 mls @ 12.5 mls/hr IV X1 ONE Stop: 02/12/25 12:35 Last Admin: 02/12/25 09:46 Dose: 12.5 mls/hr Ferumoxytol 510 mg/ Sodium (Chloride) 117 mls @ 234 mls/hr IV X1 ONE Stop: 02/12/25 17:09 Last Admin: 02/12/25 17:43 Dose: 234 mls/hr Acetaminophen (Ofirmev Inj) 1,000 mg in 100 mls @ 250 mls/hr IV X1 ONE Stop: 02/14/25 08:31 Last Admin: 02/14/25 08:23 Dose: 250 mls/hr Sodium Chloride 500 ml/ IV (Miscellaneous Supplies) 500 mls @ 40 mls/hr IV X1 ONE Stop: 02/14/25 21:16 Last Infusion: 02/14/25 17:13 Dose: 50 mls/hr Sodium Chloride 500 ml/ IV (Miscellaneous Supplies) 500 mls @ 50 mls/hr IV X1 ONE Stop: 02/14/25 18:46 Last Admin: 02/14/25 17:15 Dose: Not Given Magnesium Sulfate (Magnesium Sulfate Ivpb) 2 gm in 50 mls @ 25 mls/hr IV X1 ONE Stop: 02/15/25 10:07 Last Admin: 02/15/25 09:03 Dose: 25 mls/hr Sodium Chloride 500 ml/ IV (Miscellaneous Supplies) 500 mls @ 30 mls/hr IV X1 ONE Stop: 02/16/25 02:09 Last Infusion: 02/15/25 18:00 Dose: 50 mls/hr Sodium Chloride 500 ml/ IV (Miscellaneous Supplies) 500 mls @ 50 mls/hr IV X1 ONE Stop: 02/15/25 19:29 Last Admin: 02/15/25 18:04 Dose: Not Given Sodium Chloride 500 ml/ IV (Miscellaneous Supplies) 500 mls @ 50 mls/hr IV X1 ONE Stop: 02/16/25 08:59 Last Admin: 02/15/25 23:03 Dose: Not Given Dextrose (D5w) 500 mls @ 500 mls/hr IV .Q1H [facility] Stop: 02/16/25 01:14 Dextrose (D5w) 500 mls @ 300 mls/hr IV .Q1H40M [facility] Stop: 02/16/25 02:37 Last Admin: 02/16/25 01:41 Dose: 300 mls/hr Sodium Chloride 500 ml/ IV (Miscellaneous Supplies) 500 mls @ 30 mls/hr IV X1 ONE Stop: 02/16/25 15:39 Last Admin: 02/16/25 08:03 Dose: 30 mls/hr Sodium Phosphate 22.5 mmol/ (Sodium Chloride) 507.5 mls @ 82.778 mls/hr IV X1 ONE Stop: 02/16/25 13:38 Last Admin: 02/16/25 08:03 Dose: 82.778 mls/hr Insulin Human Lispro (Insulin Lispro (Admelog) 1 Unit/0.01 Ml Unit) 0 unit SC AC [facility]; Protocol Stop: 03/11/25 16:59 Last Admin: 02/14/25 14:06 Dose: Not Given Ketorolac Tromethamine (Ketorolac Inj 30 Mg/Ml Vial) 15 mg IVP X1 ONE Stop: 02/14/25 17:40 Last Admin: 02/14/25 18:09 Dose: 15 mg Ketorolac Tromethamine (Ketorolac Inj 30 Mg/Ml Vial) 30 mg IVP X1 ONE Stop: 02/15/25 01:05 Last Admin: 02/15/25 01:32 Dose: 30 mg Ketorolac Tromethamine (Ketorolac Inj 30 Mg/Ml Vial) 30 mg IVP X1 ONE Stop: 02/16/25 03:41 Ketorolac Tromethamine (Ketorolac Inj 30 Mg/Ml Vial) 15 mg IVP X1 ONE Stop: 02/16/25 03:41 Last Admin: 02/16/25 04:21 Dose: 15 mg Meperidine HCl (Meperidine Inj 50 Mg/Ml Vial) 25 mg IV Q2M PRN PRN Reason: MODERATE SEDATION Stop: 02/12/25 20:32 Midazolam HCl (Midazolam Inj 1 Mg/Ml Vial 2 Ml) 2 mg IV Q2M PRN PRN Reason: Moderate Sedation Stop: 02/11/25 17:42 Midazolam HCl (Midazolam Inj 1 Mg/Ml Vial 2 Ml) 2 mg IV Q2M PRN PRN Reason: Moderate Sedation Stop: 02/12/25 20:32 Ondansetron HCl (Ondansetron Odt 4 Mg Tabrap) 4 mg PO X1 ONE; Protocol Stop: 02/09/25 13:50 Last Admin: 02/09/25 13:57 Dose: 4 mg Polyethylene Glycol/Electrolytes (Na [place]/Nahco3/Luis/Peg (Golytely) 4,000 Ml Btl) 4,000 ml PO X1 ONE Stop: 02/11/25 16:08 Last Admin: 02/11/25 18:30 Dose: 4,000 ml Rocuronium [place] (Rocuronium Inj 10 Mg/Ml Vial 10 Ml) 80 mg IVP X1 ONE Stop: 02/16/25 19:37 Last Admin: 02/16/25 20:10 Dose: 80 mg Sodium Chloride (Sodium Chloride 1 Gm Tablet) 1 gm PO BID JOE Stop: 03/15/25 08:59 Last Admin: 02/14/25 08:11 Dose: Not Given Assessment & Plan Plan Plan: Neurological #Ascending paralysis Patient initially presented with generalized weakness and fatigue. Hospital course was complicated by the development of ascending paralysis which progressed to his upper extremities. Patient also developed dysphagia and dyspnea. NIF was tested with readings of -16 x3 readings. Neurology services were consulted who recommended an LP which showed elevated protein and glucose. Patient was then started on IVIG. There was concern for herpes encephalitis and patient on acyclovir although unlikely as patient was AAOx3. DDX includes but is not limited to Albarran barre syndrome or encephalitis. -Continue IVIG -Continue Acyclivir -MRI: Pending -CSF studies: Pending -Neurology consulted, recommendations appreciated Cardiology #Distributive shock DDX: Septic shock secondary to pneumonia vs component of hypotension from sedation - Continue levaquin for CAP - Wean sedation as tolerated Pulmonary #Acute respiratory failure due to airway protection Patient intubated due to concern for impending respiratory failure in the setting GBS DDX: GBS -Current vent settings: Mode ACVC/RR 24/Tidal Volume 400/PEEP 5.0/FiO2 40%? and on these settings the ABG is pH 7.38/pCO2 32/HC03 19 -SAT/SBT -ABG as needed Gastrointestinal #Tranaminitis- resolving #Hyperbilirubinemia - resolved Patient has mild elevation of liver enzymes, liver U/S was negative. -Continue to monitor Renal/Genitourinary # Hypoosmolar hyponatremia Likely due to SIADH -Sodium at the time of admission is 123 which downtrended to as low as 116. Patient was started on hyperteonic saline, with sodium improving to 122. -Urine sodium is 167, urine specific gravity is 1.030 -both of them suggest possibility of SIADH, less suspicion of Tonica's in view of normal to high blood pressures Plan -Initially patient was started on salt tablets, as the sodium still seems to be declining, started on 3% NS at 40 mL/h but still sodium levels tend to be downtrending for which central line was placed and patient was started on 3% NS at 50 mL/h -Continue 3%NS at the rate of 50ml/hr -Monitor sodium levels -Started on sodium tablets 1gm p.o. BID # Non-anion gap metabolic acidosis DDX: RTA vs NaCL/salt tabs administration -C # Acute kidney injury, resolved Likely pain in the setting of sepsis and dehydration -Patient is admitted to the hospital with complaints of cough, weakness and fatigue -Patient's baseline creatinine is not available -Creatinine at the time of admission on 02/09/2025 is 1.4 > 02/12/2025, BUN 18, creatinine 0.7 -Renal ultrasound ordered did not show any significant pathology -no hydronephrosis or ureteral calculi -Patient was found to have 3+ blood, 6 RBC on urine analysis after PRBC transfusion, which could be likely due to blood transfusion reaction Plan -Avoid nephrotoxic medication and renally dose medications -For essential medications that are renally cleared, adjust dosing daily -Avoid Iodinated contrast media to prevent contrast induced nephropathy -Avoid Gadolinium-based contrast agents to prevent?nephrogenic systemic fibrosis -Avoid Nephrotoxic medications and drugs that may have a detrimental effect on glomerular perfusion Endocrine #History of Type II Diabetes Mellitus - Hold patient's home Diabetes Medications - Patient started on Insulin Sliding scale - 10 Units Lantus - ACHS accucheks - Carbohydrate consistant diet - Follow up QAM CMP glucose level Hematology #Microcytic Anemia - improving H/H on admission: 9.5/29.1%; MCV: 70 DDX: acute blood loss, hemolysis, chronic inflammation Workup: Colononscopy negative for any acute bleeding -Continue to trend and monitor H/H Infectious Disease #Pneumonia As evidenced on CXR -Continue Levaquin Fluids Electrolytes Nutrition: NPO Analgesia: Fentanyl gtt Sedation: Propofol and Fentanyl gtt Thromboprophylaxis: SCD Head up position: N/A Ulcer prophylaxis: Pantoprazole 40 mg BID Glycemic control: Slidning scale insulin Indwelling catheter: Ortega CODE STATUS: Full Code Patient's case was discussed with supervising attending physician Dr. Jefry Salamanca M.D. Internal Medicine PGY-3
[2025-02-16 20:58] LABS: Base Excess -5 (-3-3); HCO3 22 mEq/L (20-26); Inspired Oxygen, FIO2 60 %; O2 Saturation 100 % (91-98); PCO2 53 mmHg (32.0-48.0); PO2 189 mmHg (83-108); Puncture Site Left Radial; pH, Arterial 7.24 (7.35-7.45)
[2025-02-16 20:59] LABS: Allen Test Performed/OK
[2025-02-16 21:02] LABS: Sodium 122 mMol/L (136-145)
[2025-02-16] MEDS: Norepinephrine/D5W 8mg/250ml 8 MG/250 ML BAG 7.229 MG IV (21:34)
[2025-02-16 22:23] LABS: Base Excess -5 (-3-3); HCO3 19 mEq/L (20-26); Inspired Oxygen, FIO2 40 %; O2 Saturation 99 % (91-98); PCO2 32 mmHg (32.0-48.0); PO2 93 mmHg (83-108); pH, Arterial 7.38 (7.35-7.45)
[2025-02-16 22:24] LABS: Allen Test Performed/OK; Puncture Site Left Radial
[2025-02-16] MEDS: METOCLOPRAMIDE 5 MG TABLET PO (22:33)
[2025-02-16] MEDS: SODIUM CHLORIDE 1 GM TABLET PO (22:33)
[2025-02-16] MEDS: ATORVASTATIN CALCIUM 20 MG TABLET 40 MG PO (22:33)
[2025-02-16] MEDS: CITRIC ACID/SODIUM CITR 15 ML UDC (BICITRA) 30 ML PO (22:34)
[2025-02-17] VITALS (85 sets, daily range): BP systolic 79–141; BP diastolic 42–83; PULSE 87–112; RESP 3–29; TEMP 36.4–36.9; O2SAT 94–99; BMI 25.1
[2025-02-17 01:12] LABS: Anion Gap 6 (7-16); BUN/Creatinine Ratio 21 Ratio (12-20); Blood Urea Nitrogen 17 mg/dL (9-23); Calcium 9.1 mg/dL (8.3-10.6); Carbon Dioxide 19.8 mMol/L (20.0-31.0); Chloride 97 mMol/L (98-107); Creatinine (Component) 0.8 mg/dL (0.6-1.3); Estimated Creatinine Clearance 85.2 mL/min (>60); Glucose 145 mg/dL (74-106); Osmolality,Calculated 252 (275-295); Potassium 3.5 mMol/L (3.4-5.1); Sodium 123 mMol/L (136-145); eGFR > 60 See Note
[2025-02-17 04:08] LABS: Sodium 125 mMol/L (136-145)
[2025-02-17] MEDS: SODIUM CHLORIDE 1 GM TABLET PO ×2 (05:15→14:50)
[2025-02-17] MEDS: HEPARIN SOD INJ 5000 UNIT/ML VIAL SC ×2 (05:15→14:50)
[2025-02-17 05:50] LABS: Basophils % (Auto) 0 % (0-2.5); Eosinophils # (Auto) 0.1 Thou/mm3 (0.0-0.5); Eosinophils % (Auto) 1 % (0-10); Hematocrit 29.7 % (41.0-53.0); Hemoglobin 9.3 g/dL (13.5-16.0); Immature Granulocytes % (Auto) 2 % (0-0); Lymphocytes # (Auto) 0.8 Thou/mm3 (1.0-4.8); Lymphocytes % (Auto) 8 % (10-50); Mean Corpuscular HGB Conc 31.3 g/dl (31.0-37.0); Mean Corpuscular Hemoglobin 22.6 pg (25.0-35.0); Mean Corpuscular Volume 72 fL (80-100); Monocytes # (Auto) 1.2 Thou/mm3 (0.0-0.8); Monocytes % (Auto) 12 % (0-12); Neutrophils % (Auto) 77 % (37-80); Nucleated Red Blood Cell % 0 /100 WBC (0); Platelet Count 431 Thou/mm3 (140-440); RDW Standard Deviation 65.3 fL (35.1-43.9); Red Blood Count 4.11 Miln/mm3 (4.50-5.90); White Blood Count 10.4 Thou/mm3 (3.8-10.6)
[2025-02-17 06:21] LABS: Alanine Aminotransferase 61 U/L (10-49); Albumin, Serum 2.9 gm/dL (3.4-4.8); Albumin/Globulin Ratio 0.6 (1.2-2.2); Alkaline Phosphatase 131 U/L (46-116); Anion Gap 7 (7-16); Aspartate Amino Transferase 60 U/L (0-34); BUN/Creatinine Ratio 21 Ratio (12-20); Bilirubin,Total 0.5 mg/dL (0.3-1.2); Blood Urea Nitrogen 17 mg/dL (9-23); Calcium 9.4 mg/dL (8.3-10.6); Calcium (Corrected) 10.3 mg/dL (8.5-10.1); Carbon Dioxide 21.2 mMol/L (20.0-31.0); Chloride 97 mMol/L (98-107); Creatinine (Component) 0.8 mg/dL (0.6-1.3); Estimated Creatinine Clearance 78.6 mL/min (>60); Globulin 4.7 gm/dL (2.3-3.5); Glucose 117 mg/dL (74-106); Magnesium 1.8 mg/dL (1.6-2.6); Osmolality,Calculated 254 (275-295); Phosphorous 3.2 mg/dL (2.4-5.1); Potassium 3.6 mMol/L (3.4-5.1); Sodium 125 mMol/L (136-145); Total Protein 7.6 gm/dL (5.7-8.2); eGFR > 60 See Note
[2025-02-17 06:36] LABS: Allen Test Performed/OK; Base Excess -3 (-3-3); HCO3 22 mEq/L (20-26); Inspired Oxygen, FIO2 35 %; O2 Saturation 100 % (91-98); PCO2 37 mmHg (32.0-48.0); PO2 105 mmHg (83-108); Puncture Site Right Radial; pH, Arterial 7.38 (7.35-7.45)
[2025-02-17] MEDS: SODIUM CHLORIDE 0.9% IV ×2 (07:13→14:52)
[2025-02-17] MEDS: ACYCLOVIR IV ×2 (07:13→14:52)
[2025-02-17 07:38] LABS: Sodium 125 mMol/L (136-145)
[2025-02-17] MEDS: PANTOPRAZOLE INJ 40 MG VIAL IV ×2 (09:42→20:00)
[2025-02-17] MEDS: LEVOFLOXACIN/D5W 750MG IVPB 750 MG/150 ML BAG 100 MG IV (09:43)
--- NOTE | 2025-02-17 10:04 | PC.NURSE ---
PER DR LUNA PATIENT NEEDS TO BE TRANSFERRED FOR PLASMAPHERESIS. HE STATED PATIENT SHOULD BE TRANSFERRED TO [facility] WHO HE SPOKE TO DR PAYAL ANDREWS WHO WOULD ACCEPT THE PATIENT. CALLED [facility] AT [address] STATED WE WOULD NEED TO RECEIVE AUTH FROM PATIENTS INSURANCE BEFORE INITIATING TRANSFER SINCE PATIENT IS AN INPATIENT.
[2025-02-17 10:16] LABS: Sodium 126 mMol/L (136-145)
[2025-02-17] MEDS: ACETAMINOPHEN 325 MG TABLET 650 MG PO (11:06)
[2025-02-17] MEDS: DiphenhydrAMINE INJ 50 MG/ML VIAL 25 MG IV (11:06)
--- NOTE | 2025-02-17 11:10 | XR_ITS ---
Examination: AP chest single view Technique: AP portable semiupright chest single view Exam date and time: February 17, 2025 1027 hrs. Comparison February 16, 2025 Indications: History right lung atelectasis Findings: Basilar bronchitis versus early bronchopneumonia Blunting of the right lateral costophrenic angle No significant cardiac enlargement Endotracheal tube tip approximately 6 cm above mark Right internal jugular central line tip SVC Orogastric tube in the stomach Impression: Bibasilar bronchitis versus early bronchopneumonia, clinical correlation advised
[2025-02-17] MEDS: PRE MIXED IV (11:36)
[2025-02-17] MEDS: IMMUNE GLOB GA CA IV (11:36)
--- NOTE | 2025-02-17 11:58 | PC.DIETICIAN ---
Nutrition prescription Vital 1.2 at 20 ml/hr via OG tube by pump. Advance 10 ml every 8 hrs to goal rate of 55 ml/hr x 24 hrs. If no IV fluids, water flushes of 15 ml/hr (or per MD).
--- NOTE | 2025-02-17 12:32 | PC.CM ---
Addendum entered by Candida Markham RN 02/17/25 14:16: atient need transfer for plasmapheresis. [facility] was contacted by charge nurse in ICU. ?[facility] transfer center states they need authorization prior to reviewing patient. I contacted Dulce with [employer] phone #? [phone] and I initiated authorization process. I reported to ICU charge nurse and I gave her the transfer packet with CD. ??? Addendum entered by Candida Markham RN 02/17/25 13:32: I spoke to Dulce with [employer] insurance [phone]. She states they are working on processing authorization to [facility]. I will take transfer packet with CD to ICU and had off report. Original Note: I reviewed UR notes and found patient has [employer] services. I called and spoke to Dulce at [phone]. I let her know patient needs to be transfer for plasmapherisis. I provider her with the phone number for Dr. Darby. I will started packet and make a CD. Original Note: 1018 I received a referral to transfer patient to [facility] with Dr. Rex Lawson. Patient is needing plasmapheresis. [place] charge nurse stated they already spoke the transfer center at [facility] and they want us to get authorization. Kumar spoke to Dr. Darby and he states patient is not emergent, so we can work on getting authorization. I will reach out to insurance.
--- NOTE | 2025-02-17 12:35 | ESPR_ITS ---
<Statement entered by Mathew Darby MD - 02/18/25 09:44> TOTAL TIME: 45MINUTES ON DIRECT MEDICAL CARE, MANAGEMENT - COORDINATION AND COUNSELING > 50% OF TOTAL TIME I saw and evaluated the patient. I reviewed the resident?s note and agree with findings and plan as documented in the resident?s note. weaned off sedation checked best NIF at -21cm h20 Minimal observed muscular effort despite extending NIF manuever to 25s PSV tolerated well at 10/8 cm h20 cxr w/ RLL atelectasis - improved w/ saline lavage sputum clx ordered given progressive weakness resulting in intubation day 3 of IVIG - plan made to transfer to [place] for plasmapharesis. Cont'd HT saline TFs started (restricted intake) <Statement entered by Hung Cano MD - 02/17/25 12:44> pt examined bedside this morning, bed side NIF was -21, changed the vent setting to pressure support he is tolerating PS well.Morning chest xray showed right lowe lobe collapse, salanine lavage was done and sent for cultures, repeat chest xray shows mild improvement. will do chest pt and saline lavage Q8 hr .Pending MRI . Today is day 4 of IVIG , still there is no improvement , he will need plasmapheresis . Pending transfer to [facility] for plasmapherisis . I discussed with and supervised my co-resident involved in the care of this patient. I agree with the assessment and plan as documented above. Hung Cano,PGY-3 Disclaimer: Despite multiple revisions, due to the dictation software being used, the document below may not be free of grammatical errors including phonetic/typographic errors. However, this does not deter from our commitment to providing health care in the patient's best interest in mind. Documentation for date of: 02/17/25 Subjective Subjective Interval history: Mr. David Botello is a 69 year old gentleman with a past medical history significant for diabetes mellitus, hypertension, hyperlipidemia who presented to the ED on 02/09/2025 due to symptoms of progressively worsening cough,weakness and fatigue of 1 week duration. Due to the patient being intubated, history was obtained through chart review. Patient had apparently failed outpatient treatment with amoxicillin/clavulanate, promenthazine and inhalers for his symptoms. His symptoms evolved to include the development of fevers chills and sputum production. Initial workup in the ED was significant for hyponatremia of 123, DILMA with a creatinine of 1.4 and lactic acidosis of 3.4. Chest Xray showed pneumonia for which he was subsequently admitted. During the course of the patient's admission his began to experience lower limb weakness which gradually progressed to involve his upper extremities. Due to concern for albarran barre syndrome, Neurology was consulted who recommended an LP and IVG. Due to the patient's worsening lower extremity weakness in addition to the development of dysphagia and difficulty breathing, the patient NIF were tested showing 3 readings of -16. At this point, ICU was consulted for intubation due to concern for impending respiratory failure. 02/17/2025- Patient seen and examined at bedside. He is a 69-year-old male with a past medical history of hypertension, hyperlipidemia and diabetes who presented to the ED on 02/09/2025 with symptoms of upper respiratory tract infection and weakness. Patient was admitted for management of community-acquired pneumonia referred to outpatient management. However, antibody 3 of admission, the weakness got worse and patient was noted to have paralysis of lower extremities, extending to trunk and upper extremities. CSF study was was done to evaluate Guillain Trent syndrome and the patient was started on IVIG based on elevated protein. For concern of impending respiratory doom with surroundings and last 1 being 16, the patient was upgraded to the ICU and intubated electively. Today, is day 4 of IVIG administration, bedside day 1 patient is unable to all 4 lower extremities, sensation preserved to abdomen, areflexia. As the patient does not seem to be improving on IVIG, considering a transfer to facility with plasmapheresis can be done. Additionally, chest x-ray this morning showed right lower lobe collapse, sputum samples obtained and the patient will continue to have chest physiotherapy as well as saline lavage to try to clear out secretions. Keeping the patient on pressure support on the vent for now, monitoring his respiratory status and gases. Starting transfer process for possible plasmapheresis Exam Vital Signs Temp Pulse Resp BP Pulse Ox O2 Del Method O2 Flow Rate 97.9 F 103 H 24 H 104/64 95 Mechanical Ventilation 3 02/17/25 07:00 02/17/25 11:00 02/17/25 11:00 02/17/25 11:00 02/17/25 11:00 02/17/25 04:00 02/15/25 16:00 FiO2 30 02/17/25 12:00 Narrative Exam GENERAL: AAOX3 NEURO: Strength and bilateral upper and lower extremities-0/5. Areflexia. Sensory preserved in upper extremities and trunk, no cranial nerves deficits HEENT: Moist mucosa. Eyes open, symmetrical, & clear CARDIO: No chest pain on palpation. Heart RRR, no obvious murmurs PULM: No noted coughing/dyspnea. Lungs CTA B/L GI: Abdomen soft, nondistended, no pain on palpation. BSx4 URO/AGRICULTURAL EXTENSION EDUCATOR:: No further abnormalities noted. SKIN/MSK/EXT: No wounds/rashes/edema/amputations, no pain on palpation. Pedal pulses present B/L Objective Labs 02/17/25 05:30 02/17/25 16:16 Labs: Laboratory Results - last 24 hr 02/16/25 02/16/25 02/16/25 13:22 16:00 20:40 WBC RBC Hgb Hct MCV MCH MCHC RDW Std Deviation Plt Count Neut % (Auto) Lymph % (Auto) [place] % (Auto) Eos % (Auto) Baso % (Auto) Neut # (Auto) Lymph # (Auto) [place] # (Auto) Eos # (Auto) Baso # (Auto) Immature Gran # (Auto) Absolute Nucleated RBC Immature Gran % Nucleated RBC % Puncture Site Left Radial ABG pH 7.24 L D ABG pCO2 53 H D ABG pO2 189 H D ABG HCO3 22 ABG O2 Saturation 100 H ABG Base Excess -5 L FiO2 60 Sodium 120 L 121 L Potassium Chloride Carbon Dioxide Anion Gap BUN Creatinine Estim Creat Clear Calc eGFR BUN/Creatinine Ratio Glucose Calculated Osmolality Calcium Corrected Calcium Phosphorus Magnesium Total Bilirubin AST ALT Alkaline Phosphatase Total Protein Albumin Globulin Albumin/Globulin Ratio 02/16/25 02/16/25 02/17/25 20:45 22:10 00:09 WBC RBC Hgb Hct MCV MCH MCHC RDW Std Deviation Plt Count Neut % (Auto) Lymph % (Auto) [place] % (Auto) Eos % (Auto) Baso % (Auto) Neut # (Auto) Lymph # (Auto) [place] # (Auto) Eos # (Auto) Baso # (Auto) Immature Gran # (Auto) Absolute Nucleated RBC Immature Gran % Nucleated RBC % Puncture Site Left Radial ABG pH 7.38 D ABG pCO2 32 D ABG pO2 93 D ABG HCO3 19 L ABG O2 Saturation 99 H ABG Base Excess -5 L FiO2 40 Sodium 122 L 123 L Potassium 3.5 Chloride 97 L Carbon Dioxide 19.8 L Anion Gap 6 L BUN 17 Creatinine 0.8 Estim Creat Clear Calc 85.2 eGFR > 60 BUN/Creatinine Ratio 21 H Glucose 145 H Calculated Osmolality 252 L Calcium 9.1 Corrected Calcium Phosphorus Magnesium Total Bilirubin AST ALT Alkaline Phosphatase Total Protein Albumin Globulin Albumin/Globulin Ratio 02/17/25 02/17/25 02/17/25 03:17 05:30 06:25 WBC 10.4 D RBC 4.11 L Hgb 9.3 L Hct 29.7 L MCV 72 L MCH 22.6 L MCHC 31.3 RDW Std Deviation 65.3 H Plt Count 431 D Neut % (Auto) 77 Lymph % (Auto) 8 L [place] % (Auto) 12 Eos % (Auto) 1 Baso % (Auto) 0 Neut # (Auto) 8.0 H Lymph # (Auto) 0.8 L [place] # (Auto) 1.2 H Eos # (Auto) 0.1 Baso # (Auto) 0.0 Immature Gran # (Auto) 0.20 H Absolute Nucleated RBC 0.00 Immature Gran % 2 H Nucleated RBC % 0 Puncture Site Right Radial ABG pH 7.38 ABG pCO2 37 ABG pO2 105 ABG HCO3 22 ABG O2 Saturation 100 H ABG Base Excess -3 FiO2 35 Sodium 125 L 125 L Potassium 3.6 Chloride 97 L Carbon Dioxide 21.2 Anion Gap 7 BUN 17 Creatinine 0.8 Estim Creat Clear Calc 78.6 eGFR > 60 BUN/Creatinine Ratio 21 H Glucose 117 H Calculated Osmolality 254 L Calcium 9.4 Corrected Calcium 10.3 H Phosphorus 3.2 Magnesium 1.8 Total Bilirubin 0.5 AST 60 H ALT 61 H Alkaline Phosphatase 131 H Total Protein 7.6 Albumin 2.9 L Globulin 4.7 H Albumin/Globulin Ratio 0.6 L 02/17/25 02/17/25 07:04 09:45 WBC RBC Hgb Hct MCV MCH MCHC RDW Std Deviation Plt Count Neut % (Auto) Lymph % (Auto) [place] % (Auto) Eos % (Auto) Baso % (Auto) Neut # (Auto) Lymph # (Auto) [place] # (Auto) Eos # (Auto) Baso # (Auto) Immature Gran # (Auto) Absolute Nucleated RBC Immature Gran % Nucleated RBC % Puncture Site ABG pH ABG pCO2 ABG pO2 ABG HCO3 ABG O2 Saturation ABG Base Excess FiO2 Sodium 125 L 126 L Potassium Chloride Carbon Dioxide Anion Gap BUN Creatinine Estim Creat Clear Calc eGFR BUN/Creatinine Ratio Glucose Calculated Osmolality Calcium Corrected Calcium Phosphorus Magnesium Total Bilirubin AST ALT Alkaline Phosphatase Total Protein Albumin Globulin Albumin/Globulin Ratio ABG Interpretation ABG results: 02/16/25 02/16/25 02/16/25 09:50 20:40 22:10 ABG pH 7.39 7.24 L D 7.38 D ABG pCO2 34 53 H D 32 D ABG pO2 81 L 189 H D 93 D ABG HCO3 21 22 19 L ABG O2 Saturation 97 100 H 99 H ABG Base Excess -4 L -5 L -5 L 02/17/25 06:25 ABG pH 7.38 ABG pCO2 37 ABG pO2 105 ABG HCO3 22 ABG O2 Saturation 100 H ABG Base Excess -3 Quality Measures Quality Measures none Advance care planning discussed with:: spouse Assessment & Plan Assessment Current Active Medications: Generic Name Dose Route Start Last Admin Trade Name Freq PRN Reason Stop Dose Admin Acetaminophen 650 mg 02/09/25 16:42 Acetaminophen 325 Mg Tablet PO 03/11/25 16:41 Q6H PRN Fever >101.5 Acetaminophen 650 mg 02/09/25 16:52 02/13/25 18:53 Acetaminophen 325 Mg Tablet PO 03/11/25 16:51 650 mg Q6H PRN Administration PAIN SCALE 1-3 (mild Acetaminophen 650 mg 02/17/25 10:30 02/17/25 11:06 Acetaminophen 325 Mg Tablet PO 02/18/25 10:01 650 mg QDAY@1000 JOE Administration Atorvastatin Calcium 40 mg 02/14/25 21:00 02/16/25 22:33 Atorvastatin Calcium 20 Mg Tablet PO 03/16/25 20:59 40 mg HS JOE Administration Dextrose 25 ml 02/09/25 16:56 Dextrose 50%-Water Inj 50 Ml Syringe IV 03/11/25 16:55 Q15MIN PRN BG 50-70 responsive npo pt Dextrose 50 ml 02/09/25 16:56 Dextrose 50%-Water Inj 50 Ml Syringe IV 03/11/25 16:55 Q15MIN PRN BG <50 OR BG <70 & pt unresponsive Diphenhydramine HCl 25 mg 02/17/25 10:30 02/17/25 11:06 Diphenhydramine Inj 50 Mg/Ml Vial IV 02/18/25 10:01 25 mg QDAY@1000 JOE Administration Glucagon 1 mg 02/09/25 16:56 Glucagon Inj 1 Mg Vial IM Q15MIN PRN BG <70, and no IV access Heparin Sodium (Porcine) 5,000 unit 02/14/25 09:15 02/17/25 05:15 Heparin Sod Inj 5000 Unit/Ml Vial SC 02/28/25 09:14 5,000 unit Q8HR JOE Administration Levofloxacin/Dextrose 750 mg in 150 mls @ 100 mls/hr 02/12/25 09:00 02/17/25 09:43 Levaquin Ivpb IV 02/19/25 08:59 100 mls/hr QDAY JOE Administration Immune Globulin 20 gm/ Immune 300 mls @ 50 mls/hr 02/14/25 10:30 02/17/25 11:36 Globulin 10 gm/ IV IV 02/18/25 16:29 50 mls/hr Miscellaneous Supplies QDAY@1030 JOE Administration Acyclovir Sodium 771 mg/ 265.42 mls @ 265.42 mls/hr 02/16/25 14:00 02/17/25 07:13 Sodium Chloride IV 02/23/25 13:59 265.42 mls/hr Q8HR JOE Administration Propofol 1,000 mg in 100 mls @ 2.313 mls/hr 02/16/25 19:40 02/17/25 09:00 Diprivan Ivpb IV 03/18/25 19:39 0 mcg/kg/min .Q24H PRN 0 mls/hr PER PROTOCOL Titration Protocol 5 MCG/KG/MIN Fentanyl Citrate 2,500 mcg in 250 mls @ 2.5 mls/hr 02/16/25 19:40 02/17/25 09:00 Sublimaze Inj 2,500 Mcg/250 Ml Bag IV 02/21/25 19:39 0 mcg/hr .Q24H PRN 0 mls/hr PER PROTOCOL Titration Protocol 25 MCG/HR Norepinephrine/Dextrose 8 mg in 250 mls @ 7.229 mls/hr 02/16/25 19:41 02/17/25 11:15 Levophed In D5w 8mg/250ml IV 03/18/25 19:40 0.01 mcg/kg/min .Q24H PRN 1.446 mls/hr PER PROTOCOL Titration Protocol 0.05 MCG/KG/MIN Sodium Chloride 500 ml/ IV 500 mls @ 30 mls/hr 02/17/25 12:10 Miscellaneous Supplies IV 02/18/25 04:49 X1 ONE Insulin Glargine 10 unit 02/09/25 17:00 02/17/25 09:42 Insulin Glargine (Lantus) 5 Unit/0.05 Ml (Per 5 Units) SC 03/11/25 16:59 Not Given QDAY JOE Insulin Human Lispro 0 unit 02/14/25 18:00 02/17/25 12:22 Insulin Lispro (Admelog) 1 Unit/0.01 Ml Unit SC 03/16/25 17:59 Not Given Q6HR JOE Protocol Metoclopramide HCl 5 mg 02/11/25 21:00 02/17/25 09:48 Metoclopramide 5 Mg Tablet PO 03/13/25 20:59 Not Given BID JOE Ondansetron HCl 4 mg 02/09/25 16:42 Ondansetron Inj 2 Mg/Ml Inj 2 Ml IV 03/11/25 16:41 Q6H PRN NAUSEA OR VOMITING Protocol Pantoprazole Sodium 40 mg 02/10/25 21:00 02/17/25 09:42 Pantoprazole Inj 40 Mg Vial IV 03/12/25 20:59 40 mg BID JOE Administration Sodium Chloride 1 gm 02/14/25 17:15 02/17/25 05:15 Sodium Chloride 1 Gm Tablet PO 03/16/25 17:14 1 gm TID JOE Administration Plan Summary: The patient is a 69-year-old male with a past medical history of hypertension, hyperlipidemia and diabetes who presented to the ED on 02/09/2025 with symptoms of upper respiratory tract infection and weakness. Patient was admitted for management of community-acquired pneumonia referred to outpatient management. However, antibody 3 of admission, the weakness got worse and patient was noted to have paralysis of lower extremities, standing to trunk and upper extremities. Upgraded to the ICU for elective intubation for concern for impending respiratory failure. 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 Hospital course was complicated by the development of ascending paralysis which progressed to his upper extremities. Patient also developed dysphagia and dyspnea. NIF was tested with readings of -16 x3 readings. Neurology services were consulted who recommended an LP which showed elevated protein and glucose. Patient was then started on IVIG. There was concern for herpes encephalitis and patient on acyclovir although unlikely as patient was AAOx3. DDX includes but is not limited to Albarran barre syndrome or encephalitis. Starting transfer process for possible plasmapheresis Plan: -Continue IVIG (day 4 today) -Continue Acyclovir -Pending MRI, will follow-up -Remaining CSF studies: Pending -Neurology consulted, recommendations appreciated Cardiology # Hypotension Blood pressure has been within normal limits prior to intubation. After intubation, patient was noted to have MAP more than 65, likely as a result of sedating medications. He was started on Levophed, this morning at 0.01 with my in the 80s. Will turn off pressor if MAP continues to be above 65. Pulmonary #Impending respiratory failure s/p intubation Patient intubated due to concern for impending respiratory failure in the setting GBS NIF this morning at -20. Patient put on pressure support, will leave PS of 9 and PEEP of 8. Although, patient does not look to be in respiratory distress, as he has neuromuscular weakness, is more difficult to evaluate. Okay to monitor him on pressure support and follow gases. Plan: -Current vent settings: Pressure support with PEEP of 8 and PS of 9, currently having good volumes in the 700s and saturating at 96%. -ABG as needed #Right lower lobe collapse On chest x-ray postintubation, patient has right lower lobe collapse. Saline lavage was done and sputum culture obtained. Repeat chest x-ray shows slight improvement in the right lower lobe. Will order chest physiotherapy and continue to lavage with 20 cc every 8 hours. Plan: -Chest PT -Saline lavage every 8hrs -Follow chest x-ray in the morning Gastrointestinal #Tranaminitis- resolving #Hyperbilirubinemia - resolved Patient has mild elevation of liver enzymes, liver U/S was negative. -Continue to monitor #Diet -will start tube feeds at a rate of 10 cc/h, advance now to 40 cc/h with water flushes. Keep in mind, fluid restriction of 1.5 daily Renal/Genitourinary # Hypoosmolar hyponatremia Likely due to SIADH -Sodium at the time of admission is 123 which downtrended to as low as 116. Patient was started on hyperteonic saline, with sodium improving to 122. -Urine sodium is 167, urine specific gravity is 1.030 -both of them suggest possibility of SIADH, less suspicion of Mateo's in view of normal to high blood pressures Plan -Initially patient was started on salt tablets, as the sodium still seems to be declining, started on 3% NS at 40 mL/h but still sodium levels tend to be downtrending for which central line was placed and patient was started on 3% NS at 30 mL/h -Continue 3%NS at the rate of 30ml/hr -Monitor sodium levels every 4 hours -Fluid restriction 1500 cc daily -Nephrology consulted, appreciate recommendations # Non-anion gap metabolic acidosis-resolved DDX: RTA vs NaCL/salt tabs administration # Acute kidney injury, resolved Likely pain in the setting of sepsis and dehydration -Patient is admitted to the hospital with complaints of cough, weakness and fatigue -Patient's baseline creatinine is not available -Creatinine at the time of admission on 02/09/2025 is 1.4 > 02/12/2025, BUN 18, creatinine 0.7 -Renal ultrasound ordered did not show any significant pathology -no hydronephrosis or ureteral calculi -Patient was found to have 3+ blood, 6 RBC on urine analysis after PRBC transfusion, which could be likely due to blood transfusion reaction Plan -Avoid nephrotoxic medication and renally dose medications -For essential medications that are renally cleared, adjust dosing daily -Avoid Iodinated contrast media to prevent contrast induced nephropathy -Avoid Gadolinium-based contrast agents to prevent?nephrogenic systemic fibrosis -Avoid Nephrotoxic medications and drugs that may have a detrimental effect on glomerular perfusion Endocrine #History of Type II Diabetes Mellitus A1c-6.9 Plan: - Patient started on Insulin Sliding scale - 10 Units Lantus-held -Glucose check every 6 hours Hematology #Microcytic Anemia - improving H/H on admission: 9.5/29.1%; MCV: 70 DDX: acute blood loss, hemolysis, chronic inflammation Workup: Colononscopy negative for any acute bleeding -Continue to trend and monitor H/H Infectious Disease #Pneumonia As evidenced on CXR -Continue Levaquin Fluids Electrolytes Nutrition: Tube feeds Thromboprophylaxis: SCD Ulcer prophylaxis: Pantoprazole 40 mg BID Glycemic control: Sliding scale insulin Indwelling catheter: Ortega CODE STATUS: Full Code Case was discussed with Dr Cano PGY-3 and attending physician, Dr Mehnaz Gaines MD PGY-1 Disclaimer: This note was dictated by speech recognition. Minor errors in client finance analyst may be present due to voice recognition software.
--- NOTE | 2025-02-17 12:53 | PD.RESPRO ---
Documentation for date of: 02/17/25 Subjective Subjective Interval history: Mr. Rodriguez is a 69-year-old gentleman with past medical history significant for type 2 diabetes, hypertension, dyslipidemia presented to the emergency department with weakness cough and fatigue going on for the last 1 week. Patient went to [facility] and was given Augmentin, promethazine DM, inhalers. However he continued to have fever chills and productive sputum that he brought himself to the emergency department. In the ER vitals have been stable. Labs show hemoglobin significantly low at 8.6, sodium was 123, creatinine 1.4, Pro-Beltran 0.7, lactic acid 3.4, urinalysis shows a 1+ protein, no blood. Chest x-ray showed pneumonia. Sick EKG showed sinus tachycardia. In the emergency department patient did receive 2 L normal saline bolus, antibiotics. Repeat labs showed sodium 128, bicarbonate 19.7, creatinine improved to 1.0. His hemoglobin dropped to 7.1 needing 1 unit of blood transfusion. This morning his hemoglobin is 9.1, sodium 125. Urine showed significantly dark and eowseducht-Zltc-Kaed colored and renal consultation was requested. Patient currently seen in medical floor. Entire family at bedside. Dr. Wei was called in for anemia. Hemolytic anemia workup in progress. Patient noted to have significant elevation in LDH. Repeat urinalysis showed 3+ blood with 6 RBCs. CK levels normal. 02/13/2025 Patient was seen and examined bedside. No acute overnight events. Denies any other complaints. Still found to be hyponatremic with sodium 125. Added salt tablets 1 g p.o. twice daily 02/14/2025 Patient is seen and examined at the bedside C/o difficulty in moving all 4 extremities. 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 Still remained hyponatremic despite sodium tablets, so started on 3%NS and recommended to monitor sodium levels 02/15/2025 Patient is seen and examined at the bedside in the telemetry Still had difficulty in moving the extremities, power is 1/5 in lower extremities and 4 -/5 in upper extremities. Single breath count is 6, likely impending respiratory failure. Had difficulty in swallowing and scheduled for speech evaluation today. Labs showed sodium of 119 and recommended to continue 3% NS at 40 mL/h and continue sodium checks every fourth hourly. If the sodium levels does not improve recommended to increase the rate of 3% NS 02/16/2025 Patient is seen and examined at bedside in the telemetry Patient had difficulty in swallowing and motor power seems to be worsening since yesterday. Patient's sodium improved to 123 yesterday for which sodium is discontinued and sodium levels came back to 118 Patient was restarted on 3% NaCl and will continue to monitor sodium levels Patient was started on IVIG in the suspicion of GBS, Dr. Stein is following up with the patient 02/17/2025 Patient is seen and examined at bedside in the ICU Overnight, as patient NIF is-16 on 3 readings, patient was intubated electively in view of impending respiratory failure Still continuing IVIG, could not do plasmapheresis as it is not available in our hospital Labs showed improving sodium of 125, recommended sodium checks and okay to continue 3% NaCl for now Based on sodium checks, discontinue 3% NaCl if the sodium levels improve Still pending some of the CSF results Exam Vital Signs Temp Pulse Resp BP Pulse Ox O2 Del Method O2 Flow Rate 98.2 F 100 16 109/67 96 Mechanical Ventilation 3 02/17/25 12:00 02/17/25 12:45 02/17/25 12:45 02/17/25 12:45 02/17/25 12:45 02/17/25 04:00 02/15/25 16:00 FiO2 30 02/17/25 12:00 Narrative Exam General: Intubated and mechanically ventilated HEENT: Normocephalic, atraumatic, mucous membranes moist. Heart: Regular rate and rhythm, no murmurs. Lungs: Clear to auscultation with no wheezing or crackles. Abdomen: Soft, nondistended, nontender, positive bowel sounds. ?No guarding or rebound tenderness. Neurologic: Intubated and mechanically ventilated Extremities: Bilateral 3+ pitting pedal edema extending up to about the ankles Skin: No rash or ecchymoses. Objective Labs 02/17/25 05:30 02/17/25 16:16 Labs: Laboratory Results - last 24 hr 02/16/25 02/16/25 02/16/25 13:22 16:00 20:40 WBC RBC Hgb Hct MCV MCH MCHC RDW Std Deviation Plt Count Neut % (Auto) Lymph % (Auto) [place] % (Auto) Eos % (Auto) Baso % (Auto) Neut # (Auto) Lymph # (Auto) [place] # (Auto) Eos # (Auto) Baso # (Auto) Immature Gran # (Auto) Absolute Nucleated RBC Immature Gran % Nucleated RBC % Puncture Site Left Radial ABG pH 7.24 L D ABG pCO2 53 H D ABG pO2 189 H D ABG HCO3 22 ABG O2 Saturation 100 H ABG Base Excess -5 L FiO2 60 Sodium 120 L 121 L Potassium Chloride Carbon Dioxide Anion Gap BUN Creatinine Estim Creat Clear Calc eGFR BUN/Creatinine Ratio Glucose Calculated Osmolality Calcium Corrected Calcium Phosphorus Magnesium Total Bilirubin AST ALT Alkaline Phosphatase Total Protein Albumin Globulin Albumin/Globulin Ratio 02/16/25 02/16/25 02/17/25 20:45 22:10 00:09 WBC RBC Hgb Hct MCV MCH MCHC RDW Std Deviation Plt Count Neut % (Auto) Lymph % (Auto) [place] % (Auto) Eos % (Auto) Baso % (Auto) Neut # (Auto) Lymph # (Auto) [place] # (Auto) Eos # (Auto) Baso # (Auto) Immature Gran # (Auto) Absolute Nucleated RBC Immature Gran % Nucleated RBC % Puncture Site Left Radial ABG pH 7.38 D ABG pCO2 32 D ABG pO2 93 D ABG HCO3 19 L ABG O2 Saturation 99 H ABG Base Excess -5 L FiO2 40 Sodium 122 L 123 L Potassium 3.5 Chloride 97 L Carbon Dioxide 19.8 L Anion Gap 6 L BUN 17 Creatinine 0.8 Estim Creat Clear Calc 85.2 eGFR > 60 BUN/Creatinine Ratio 21 H Glucose 145 H Calculated Osmolality 252 L Calcium 9.1 Corrected Calcium Phosphorus Magnesium Total Bilirubin AST ALT Alkaline Phosphatase Total Protein Albumin Globulin Albumin/Globulin Ratio 02/17/25 02/17/25 02/17/25 03:17 05:30 06:25 WBC 10.4 D RBC 4.11 L Hgb 9.3 L Hct 29.7 L MCV 72 L MCH 22.6 L MCHC 31.3 RDW Std Deviation 65.3 H Plt Count 431 D Neut % (Auto) 77 Lymph % (Auto) 8 L [place] % (Auto) 12 Eos % (Auto) 1 Baso % (Auto) 0 Neut # (Auto) 8.0 H Lymph # (Auto) 0.8 L [place] # (Auto) 1.2 H Eos # (Auto) 0.1 Baso # (Auto) 0.0 Immature Gran # (Auto) 0.20 H Absolute Nucleated RBC 0.00 Immature Gran % 2 H Nucleated RBC % 0 Puncture Site Right Radial ABG pH 7.38 ABG pCO2 37 ABG pO2 105 ABG HCO3 22 ABG O2 Saturation 100 H ABG Base Excess -3 FiO2 35 Sodium 125 L 125 L Potassium 3.6 Chloride 97 L Carbon Dioxide 21.2 Anion Gap 7 BUN 17 Creatinine 0.8 Estim Creat Clear Calc 78.6 eGFR > 60 BUN/Creatinine Ratio 21 H Glucose 117 H Calculated Osmolality 254 L Calcium 9.4 Corrected Calcium 10.3 H Phosphorus 3.2 Magnesium 1.8 Total Bilirubin 0.5 AST 60 H ALT 61 H Alkaline Phosphatase 131 H Total Protein 7.6 Albumin 2.9 L Globulin 4.7 H Albumin/Globulin Ratio 0.6 L 02/17/25 02/17/25 07:04 09:45 WBC RBC Hgb Hct MCV MCH MCHC RDW Std Deviation Plt Count Neut % (Auto) Lymph % (Auto) [place] % (Auto) Eos % (Auto) Baso % (Auto) Neut # (Auto) Lymph # (Auto) [place] # (Auto) Eos # (Auto) Baso # (Auto) Immature Gran # (Auto) Absolute Nucleated RBC Immature Gran % Nucleated RBC % Puncture Site ABG pH ABG pCO2 ABG pO2 ABG HCO3 ABG O2 Saturation ABG Base Excess FiO2 Sodium 125 L 126 L Potassium Chloride Carbon Dioxide Anion Gap BUN Creatinine Estim Creat Clear Calc eGFR BUN/Creatinine Ratio Glucose Calculated Osmolality Calcium Corrected Calcium Phosphorus Magnesium Total Bilirubin AST ALT Alkaline Phosphatase Total Protein Albumin Globulin Albumin/Globulin Ratio ABG Interpretation ABG results: 02/16/25 02/16/25 02/16/25 09:50 20:40 22:10 ABG pH 7.39 7.24 L D 7.38 D ABG pCO2 34 53 H D 32 D ABG pO2 81 L 189 H D 93 D ABG HCO3 21 22 19 L ABG O2 Saturation 97 100 H 99 H ABG Base Excess -4 L -5 L -5 L 02/17/25 06:25 ABG pH 7.38 ABG pCO2 37 ABG pO2 105 ABG HCO3 22 ABG O2 Saturation 100 H ABG Base Excess -3 Quality Measures Quality Measures none Advance care planning discussed with:: other Assessment & Plan Assessment Current Active Medications: Generic Name Dose Route Start Last Admin Trade Name Freq PRN Reason Stop Dose Admin Acetaminophen 650 mg 02/09/25 16:42 Acetaminophen 325 Mg Tablet PO 03/11/25 16:41 Q6H PRN Fever >101.5 Acetaminophen 650 mg 02/09/25 16:52 02/13/25 18:53 Acetaminophen 325 Mg Tablet PO 03/11/25 16:51 650 mg Q6H PRN Administration PAIN SCALE 1-3 (mild Acetaminophen 650 mg 02/17/25 10:30 02/17/25 11:06 Acetaminophen 325 Mg Tablet PO 02/18/25 10:01 650 mg QDAY@1000 JOE Administration Atorvastatin Calcium 40 mg 02/14/25 21:00 02/16/25 22:33 Atorvastatin Calcium 20 Mg Tablet PO 03/16/25 20:59 40 mg HS JOE Administration Dextrose 25 ml 02/09/25 16:56 Dextrose 50%-Water Inj 50 Ml Syringe IV 03/11/25 16:55 Q15MIN PRN BG 50-70 responsive npo pt Dextrose 50 ml 02/09/25 16:56 Dextrose 50%-Water Inj 50 Ml Syringe IV 03/11/25 16:55 Q15MIN PRN BG <50 OR BG <70 & pt unresponsive Diphenhydramine HCl 25 mg 02/17/25 10:30 02/17/25 11:06 Diphenhydramine Inj 50 Mg/Ml Vial IV 02/18/25 10:01 25 mg QDAY@1000 JOE Administration Glucagon 1 mg 02/09/25 16:56 Glucagon Inj 1 Mg Vial IM Q15MIN PRN BG <70, and no IV access Heparin Sodium (Porcine) 5,000 unit 02/14/25 09:15 02/17/25 05:15 Heparin Sod Inj 5000 Unit/Ml Vial SC 02/28/25 09:14 5,000 unit Q8HR JOE Administration Levofloxacin/Dextrose 750 mg in 150 mls @ 100 mls/hr 02/12/25 09:00 02/17/25 09:43 Levaquin Ivpb IV 02/19/25 08:59 100 mls/hr QDAY JOE Administration Immune Globulin 20 gm/ Immune 300 mls @ 50 mls/hr 02/14/25 10:30 02/17/25 11:36 Globulin 10 gm/ IV IV 02/18/25 16:29 50 mls/hr Miscellaneous Supplies QDAY@1030 JOE Administration Acyclovir Sodium 771 mg/ 265.42 mls @ 265.42 mls/hr 02/16/25 14:00 02/17/25 07:13 Sodium Chloride IV 02/23/25 13:59 265.42 mls/hr Q8HR JOE Administration Propofol 1,000 mg in 100 mls @ 2.313 mls/hr 02/16/25 19:40 02/17/25 09:00 Diprivan Ivpb IV 03/18/25 19:39 0 mcg/kg/min .Q24H PRN 0 mls/hr PER PROTOCOL Titration Protocol 5 MCG/KG/MIN Fentanyl Citrate 2,500 mcg in 250 mls @ 2.5 mls/hr 02/16/25 19:40 02/17/25 09:00 Sublimaze Inj 2,500 Mcg/250 Ml Bag IV 02/21/25 19:39 0 mcg/hr .Q24H PRN 0 mls/hr PER PROTOCOL Titration Protocol 25 MCG/HR Norepinephrine/Dextrose 8 mg in 250 mls @ 7.229 mls/hr 02/16/25 19:41 02/17/25 11:15 Levophed In D5w 8mg/250ml IV 03/18/25 19:40 0.01 mcg/kg/min .Q24H PRN 1.446 mls/hr PER PROTOCOL Titration Protocol 0.05 MCG/KG/MIN Sodium Chloride 500 ml/ IV 500 mls @ 30 mls/hr 02/17/25 12:10 Miscellaneous Supplies IV 02/18/25 04:49 X1 ONE Insulin Glargine 10 unit 02/09/25 17:00 02/17/25 09:42 Insulin Glargine (Lantus) 5 Unit/0.05 Ml (Per 5 Units) SC 03/11/25 16:59 Not Given QDAY [facility] Insulin Human Lispro 0 unit 02/14/25 18:00 02/17/25 12:22 Insulin Lispro (Admelog) 1 Unit/0.01 Ml Unit SC 03/16/25 17:59 Not Given Q6HR [facility] Protocol Metoclopramide HCl 5 mg 02/11/25 21:00 02/17/25 09:48 Metoclopramide 5 Mg Tablet PO 03/13/25 20:59 Not Given BID [facility] Ondansetron HCl 4 mg 02/09/25 16:42 Ondansetron Inj 2 Mg/Ml Inj 2 Ml IV 03/11/25 16:41 Q6H PRN NAUSEA OR VOMITING Protocol Pantoprazole Sodium 40 mg 02/10/25 21:00 02/17/25 09:42 Pantoprazole Inj 40 Mg Vial IV 03/12/25 20:59 40 mg BID JOE Administration Sodium Chloride 1 gm 02/14/25 17:15 02/17/25 05:15 Sodium Chloride 1 Gm Tablet PO 03/16/25 17:14 1 gm TID JOE Administration Plan Mr. Rodriguez is a 69-year-old gentleman with past medical history significant for type 2 diabetes, hypertension, dyslipidemia presented to the emergency department with weakness cough and fatigue going on for the last 1 week and consulted for Acute kidney Injury # Hypoosmolar hyponatremia Likely due to SIADH -Sodium at the time of admission is 123 -Urine sodium is 167, urine specific gravity is 1.030 -both of them suggest possibility of SIADH, less suspicion of Larimer's in view of normal to high blood pressures -On 02/17/2025, sodium is 125 Plan -Initially patient was started on salt tablets, as the sodium still seems to be declining, started on 3% NS at 40 mL/h but still sodium levels tend to be downtrending for which central line was placed and patient was started on 3% NS at 50 mL/h on 02/15 -Continue 3%NS at the rate of 30ml/hr for now -Monitor sodium levels -Will follow up with CSF analysis -Started on sodium tablets 1gm IV # Non-anion gap metabolic acidosis, resolved -Bicarb is 20.2 on 02/15/25 # Acute kidney injury, resolved Likely pain in the setting of sepsis and dehydration -Patient is admitted to the hospital with complaints of cough, weakness and fatigue -Patient's baseline creatinine is not available -Creatinine at the time of admission on 02/09/2025 is 1.4 > 02/12/2025, BUN 18, creatinine 0.7 -Renal ultrasound ordered did not show any significant pathology -no hydronephrosis or ureteral calculi -Patient was found to have 3+ blood, 6 RBC on urine analysis after PRBC transfusion, which could be likely due to blood transfusion reaction Plan -Avoid nephrotoxic medication and renally dose medications #Lactic acidosis, resolved Lactic acid elevated at at the time of admission- 3.4, came back to normal levels #Sepsis #Community-acquired bilateral pneumonia #Diabetes mellitus type 2 not on chronic insulin therapy #Essential Hypertension #Hyperlipidemia #?Guillain [place] syndrome -Rest of the medical conditions to be treated as per primary team Thank you for allowing us to involve in the care of the patient Patient plan of care was discussed with the attending physician, Dr. Mauro Brady, PGY1 Attending Provider Attestation/Addendum Patient seen and examined with resident physician Dr. Thomas. Note reviewed, agree with findings and recommendations. at bedside. Patient more alert and awake. Complaining of shortness of breath. DILMA resolved. 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 Sodium 124-despite salt tablets. Decided to proceed with 3% hypertonic saline. Patient currently receiving 3% hypertonic saline in ICU Was intubated for airway protection. 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 Hyponatremia is a missed electrolyte imbalance in GBS. Non-anion gap metabolic acidosis --questionable etiology. Doubt renal tubular acidosis. Chloride normal. On Bicitra Repeat urinalysis showed specific gravity greater than 1030, blood 1+ with no RBCs. Dark discoloration of urine resolved. Significant Lower extremities-lumbar puncture was done by neurology. 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 Did talk to ICU team- To transfer him for plasmapheresis to a tertiary care center for treatment of GBS. Dr. Darby agreed. Hemolysis resolved. Critical care time spent more than 35 minutes regarding plan of care and disease management.
[2025-02-17 13:32] LABS: Sodium 124 mMol/L (136-145)
[2025-02-17] MEDS: SODIUM CHLORIDE 3%(Hypertonic) 500 ML in PRE-MIXED 1 BAG 30 ML IV (14:49)
--- NOTE | 2025-02-17 16:18 | PC.NURSE ---
SPOKE TO GEOVANNY TO FOLLOW UP WITH THE INSURANCE AUTH APPROVAL STATED THEY HAVE APPROVED THE AUTH AND CONFIRMATION WAS FAXED TO NUMBER PROVIDED BY [employer]. PER HOUSE SUP THEY HAVE NOT RECEIVED A FAX PER GEOVANNY CALL [phone] TO OBTAIN A NEW FAX TO BE SENT
--- NOTE | 2025-02-17 16:22 | PC.NURSE ---
RECEIVED A CALL FROM AMEE FROM [place], GAVE FAX NUMBER TO ICU UNIT TO RECEIVE AUTH FOR TRANSFER AMEE STATED IF FAX DOES NOT GO THROUGH CALL HIS DIRECT LINE AT [phone] TO OBTAIN ANOTHER FAX.
[2025-02-17 16:34] LABS: Sodium 124 mMol/L (136-145)
--- NOTE | 2025-02-17 17:05 | ESDS_ITS ---
<Statement entered by Mathew Darby MD - 02/18/25 09:45> TOTAL TIME: 45MINUTES ON DIRECT MEDICAL CARE, MANAGEMENT - COORDINATION AND COUNSELING > 50% OF TOTAL TIME I saw and evaluated the patient. I reviewed the resident?s note and agree with findings and plan as documented in the resident?s note. Planned Discharge Date 02/17/25 DS: Providers Provider Date of admission: 02/09/25 16:37 Primary care physician: Farhat Ramirez MD Admitting Provider: Rafael Lewis MD Attending Provider on Admission: Mathew Darby MD Consults: 02/10/25 07:34 Referral Physical Therapy Routine Comment: Physician Instructions: 02/10/25 15:50 Consult to Gastroenterology Stat Comment: rule out Acute GI Bleed Consulting Provider: Fredo Wei 02/11/25 08:51 Consult to Nephrology Stat Comment: ATN Consulting Provider: Grabiel Wade 02/13/25 10:54 Consult to Neurology / Tele-Neurology Stat Comment: Consulting Provider: Cristo Stein 02/14/25 00:19 Referral Speech Therapy Stat Comment: 02/17/25 10:17 Referral - Oncology Admin Stat Service Needed for Transfer: Critical Care Addl Comments:: plasmaphereses , [facility], Dr Rex Lawson Attending Provider on DC: Jesus Gaines MD Discharging Provider: Jesus Gaines MD DS: Diagnosis Problem List Completed Was Problem List Reviewed/Reconciled?: Yes Hospital Course Hospital Course Hospital course: Mr. David Botello is a 69 year old gentleman with a past medical history significant for diabetes mellitus, hypertension, hyperlipidemia who presented to the ED on 02/09/2025 due to symptoms of progressively worsening cough,weakness and fatigue of 1 week duration. Patient had apparently failed outpatient treatment with amoxicillin/clavulanate, promenthazine and inhalers for his symptoms. His symptoms evolved to include the development of fevers chills and sputum production. Initial workup in the ED was significant for hyponatremia of 123, DILMA with a creatinine of 1.4 and lactic acidosis of 3.4. Chest Xray showed pneumonia for which he was subsequently admitted. For hyponatremia, he was initially started on salt tablets, but sodium level got even lower and nephrology was consulted, started him on hypertonic saline. During the course of the patient's admission his began to experience lower limb weakness which gra dually progressed to involve his upper extremities. Head CT was done and it was negative for acute hemorrhage, mass effect or midline shift. Due to concern for Guillain-Spivey? syndrome, Neurology was consulted who recommended an LP and IVG. Due to the patient's worsening lower extremity weakness in addition to the development of dysphagia and difficulty breathing, the patient NIF was serially tested showing 3 readings of -16. At this point, ICU was consulted for intubation due to concern for impending respiratory failure. Today, 02/17/2025, neurological examination shows significant weakness in bilateral upper and lower extremities as well as trunk with absent reflexes. As patient is currently on his fourth day of IVIG administration and does not seem to be improving, transfer process was initiated to a facility where plasmapheresis can be done. In the interim, patient is receiving hypertonic saline for management of hyponatremia. Additionally, has been placed on PS vent settings and is saturating 97% on 30% FIO2. 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 Minor errors in scan coordinator may be present due to voice recognition software. Time Spent with Patient Time attestation: Total time spent providing and/or coordinating discharge services: Exam Vital Signs Temp Pulse Resp BP Pulse Ox O2 Del Method O2 Flow Rate 98.2 F 103 H 15 118/73 97 Mechanical Ventilation 3 02/17/25 16:00 02/17/25 17:00 02/17/25 17:00 02/17/25 17:00 02/17/25 17:00 02/17/25 04:00 02/15/25 16:00 FiO2 30 02/17/25 16:00 Narrative Exam GENERAL: AAOX3 NEURO: Strength and bilateral upper and lower extremities-0/5. Areflexia. Sensory preserved in upper extremities and trunk, no cranial nerves deficits HEENT: Moist mucosa. Eyes open, symmetrical, & clear CARDIO: No chest pain on palpation. Heart RRR, no obvious murmurs PULM: No noted coughing/dyspnea. Lungs CTA B/L GI: Abdomen soft, nondistended, no pain on palpation. BSx4 URO/COLLAR POINTER:: No further abnormalities noted. SKIN/MSK/EXT: No wounds/rashes/edema/amputations, no pain on palpation. Pedal pulses present B/L Discharge Plan Plan Disposition Comment: Stable Prescriptions/Referrals Referrals: Farhat Ramirez MD [Primary Care Provider] - Patient/Caregiver Discharge Instructions Print Language: Ukrainian Quality Discharge Quality Measures VTE prophylaxis
--- NOTE | 2025-02-17 17:15 | PC.NURSE ---
1702 CALLED [facility] AND SPOKE TO BREANNE TO INITIATE TRANSFER PROCESS, ALL INFORMATION GIVEN AND FAXED OVER FACE SHEET. 1708 TRANSFERRED TO GILBERTO THE INTAKE NURSE FOR MORE INFORMATION, DIOGO DANIELSON SPOKE TO GILBERTO WITH DETAILED SPECIFICS ON PATIENT INFORMATION STATED SHE WOULD CALL BACK WITH BED AVAILABILITY FOR PATIENT.
--- NOTE | 2025-02-17 17:38 | PC.NURSE ---
SPOKE TO BREANNE FROM [facility] FAXED OVER AUTH FORM FROM INSURANCE COMPANY AND VERIFIED FACE SHEET WAS RECEIVED.
--- NOTE | 2025-02-17 18:20 | PC.NURSE ---
DR ETIENNE SPOKE TO MUSIC MINISTER FROM [facility].
--- NOTE | 2025-02-17 19:37 | PC.NURSE ---
Recieved call from Jany in [facility] stating that patient has been accepted and has a room. Room 364 Number for report: [phone] ext. [phone] Accepting MD Tamiko LIND notified, will contact for ETA
--- NOTE | 2025-02-17 19:38 | PD.IMPROG ---
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 Hemoglobin hematocrit at 9.3 and 29.7 Exam Vital Signs Temp Pulse Resp BP Pulse Ox O2 Del Method O2 Flow Rate 98.2 F 106 H 19 124/72 96 Mechanical Ventilation 3 02/17/25 16:00 02/17/25 19:09 02/17/25 19:00 02/17/25 19:09 02/17/25 19:09 02/17/25 04:00 02/15/25 16:00 FiO2 30 02/17/25 19:09 Objective Labs 02/17/25 05:30 02/17/25 16:16 Labs: Laboratory Results - last 24 hr 02/16/25 02/16/25 02/16/25 20:40 20:45 22:10 WBC RBC Hgb Hct MCV MCH MCHC RDW Std Deviation Plt Count Neut % (Auto) Lymph % (Auto) [place] % (Auto) Eos % (Auto) Baso % (Auto) Neut # (Auto) Lymph # (Auto) [place] # (Auto) Eos # (Auto) Baso # (Auto) Immature Gran # (Auto) Absolute Nucleated RBC Immature Gran % Nucleated RBC % Puncture Site Left Radial Left Radial ABG pH 7.24 L D 7.38 D ABG pCO2 53 H D 32 D ABG pO2 189 H D 93 D ABG HCO3 22 19 L ABG O2 Saturation 100 H 99 H ABG Base Excess -5 L -5 L FiO2 60 40 Sodium 122 L Potassium Chloride Carbon Dioxide Anion Gap BUN Creatinine Estim Creat Clear Calc eGFR BUN/Creatinine Ratio Glucose Calculated Osmolality Calcium Corrected Calcium Phosphorus Magnesium Total Bilirubin AST ALT Alkaline Phosphatase Total Protein Albumin Globulin Albumin/Globulin Ratio 02/17/25 02/17/25 02/17/25 00:09 03:17 05:30 WBC 10.4 D RBC 4.11 L Hgb 9.3 L Hct 29.7 L MCV 72 L MCH 22.6 L MCHC 31.3 RDW Std Deviation 65.3 H Plt Count 431 D Neut % (Auto) 77 Lymph % (Auto) 8 L [place] % (Auto) 12 Eos % (Auto) 1 Baso % (Auto) 0 Neut # (Auto) 8.0 H Lymph # (Auto) 0.8 L [place] # (Auto) 1.2 H Eos # (Auto) 0.1 Baso # (Auto) 0.0 Immature Gran # (Auto) 0.20 H Absolute Nucleated RBC 0.00 Immature Gran % 2 H Nucleated RBC % 0 Puncture Site ABG pH ABG pCO2 ABG pO2 ABG HCO3 ABG O2 Saturation ABG Base Excess FiO2 Sodium 123 L 125 L 125 L Potassium 3.5 3.6 Chloride 97 L 97 L Carbon Dioxide 19.8 L 21.2 Anion Gap 6 L 7 BUN 17 17 Creatinine 0.8 0.8 Estim Creat Clear Calc 85.2 78.6 eGFR > 60 > 60 BUN/Creatinine Ratio 21 H 21 H Glucose 145 H 117 H Calculated Osmolality 252 L 254 L Calcium 9.1 9.4 Corrected Calcium 10.3 H Phosphorus 3.2 Magnesium 1.8 Total Bilirubin 0.5 AST 60 H ALT 61 H Alkaline Phosphatase 131 H Total Protein 7.6 Albumin 2.9 L Globulin 4.7 H Albumin/Globulin Ratio 0.6 L 02/17/25 02/17/25 02/17/25 06:25 07:04 09:45 WBC RBC Hgb Hct MCV MCH MCHC RDW Std Deviation Plt Count Neut % (Auto) Lymph % (Auto) [place] % (Auto) Eos % (Auto) Baso % (Auto) Neut # (Auto) Lymph # (Auto) [place] # (Auto) Eos # (Auto) Baso # (Auto) Immature Gran # (Auto) Absolute Nucleated RBC Immature Gran % Nucleated RBC % Puncture Site Right Radial ABG pH 7.38 ABG pCO2 37 ABG pO2 105 ABG HCO3 22 ABG O2 Saturation 100 H ABG Base Excess -3 FiO2 35 Sodium 125 L 126 L Potassium Chloride Carbon Dioxide Anion Gap BUN Creatinine Estim Creat Clear Calc eGFR BUN/Creatinine Ratio Glucose Calculated Osmolality Calcium Corrected Calcium Phosphorus Magnesium Total Bilirubin AST ALT Alkaline Phosphatase Total Protein Albumin Globulin Albumin/Globulin Ratio 02/17/25 02/17/25 13:00 16:16 WBC RBC Hgb Hct MCV MCH MCHC RDW Std Deviation Plt Count Neut % (Auto) Lymph % (Auto) [place] % (Auto) Eos % (Auto) Baso % (Auto) Neut # (Auto) Lymph # (Auto) [place] # (Auto) Eos # (Auto) Baso # (Auto) Immature Gran # (Auto) Absolute Nucleated RBC Immature Gran % Nucleated RBC % Puncture Site ABG pH ABG pCO2 ABG pO2 ABG HCO3 ABG O2 Saturation ABG Base Excess FiO2 Sodium 124 L 124 L Potassium Chloride Carbon Dioxide Anion Gap BUN Creatinine Estim Creat Clear Calc eGFR BUN/Creatinine Ratio Glucose Calculated Osmolality Calcium Corrected Calcium Phosphorus Magnesium Total Bilirubin AST ALT Alkaline Phosphatase Total Protein Albumin Globulin Albumin/Globulin Ratio Impressions 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 Anemia blood loss stable Hemorrhagic gastritis Diverticulosis left colon Waiting for transfer to [place] for plasmapheresis ABG Interpretation ABG results: 02/16/25 02/16/25 02/16/25 09:50 20:40 22:10 ABG pH 7.39 7.24 L D 7.38 D ABG pCO2 34 53 H D 32 D ABG pO2 81 L 189 H D 93 D ABG HCO3 21 22 19 L ABG O2 Saturation 97 100 H 99 H ABG Base Excess -4 L -5 L -5 L 02/17/25 06:25 ABG pH 7.38 ABG pCO2 37 ABG pO2 105 ABG HCO3 22 ABG O2 Saturation 100 H ABG Base Excess -3 Assessment & Plan A&P Narrative # Drop in hemoglobin hematocrit multifactorial Stool culture pending Other laboratory data pending Consent obtained for fiberoptic esophagogastroduodenoscopy with possible biopsy possible therapeutic intervention under intravenous moderate sedation scheduled for tomorrow Clear liquid diet and n.p.o. midnight tonight Other medical problems include Bilateral pneumonia Gross electrolyte abnormalities with hyponatremia improving Essential hypertension Hyperlipidemia Thank you very much for the opportunity to participate in care of this patient Time Spent With Patient Time: Total time spent is greater than 50% in coordination of care (as documented) at patient's floor/unit and/or counseling patient:
[2025-02-17] MEDS: METOCLOPRAMIDE 5 MG TABLET PO (20:00)
[2025-02-17] MEDS: ATORVASTATIN CALCIUM 20 MG TABLET 40 MG PO (20:00)
--- NOTE | 2025-02-17 20:35 | PC.NURSE ---
report given to Melida from [facility] tel#[phone], questions answered, treatment provided, drips, labs and latest VS given.
--- NOTE | 2025-02-17 20:36 | PC.NURSE ---
[facility] team called and arranged transport, was given ETA of 2049. Facesheet and PCS form faxed to Ambulance dispatch. Report to Jillian muhammad RN given by DIOGO [employer] made aware
--- NOTE | 2025-02-17 21:13 | PC.NURSE ---
[facility] flight team arrived @2044 Contacted Bon from [facility] to give ETA of 2144. [facility] flight team departed @ 2111
--- NOTE | 2025-02-17 21:18 | PC.NURSE ---
report given to flight crew Michael castro at bedside.
[2025-02-19 07:03] LABS: Legionella Ag, EIA, Urine* NOT DETECTED
[2025-02-20 07:44] LABS: Haptoglobin* <10 mg/dL (43-212)
[2025-02-20 07:45] LABS: Osmolality, Urine* 476 mOsm/kg (50-1200)
[2025-02-20 11:17] LABS: HSV-1 DNA, CSF NOT DETECTED copies/mL; HSV-1 DNA, CSF Source CEREBROSPINAL FLUID
[2025-02-20 13:57] LABS: Albumin, CSF 49.1 mg/dL (8.0-42.0); IgG Index, CSF 0.52 (<0.70); IgG, CSF 17.8 mg/dL (0.8-7.7); IgG, Serum 1900 mg/dL (600-1540)
[2025-02-20 15:36] LABS: West Nile Virus (IgG), CSF <1.30
[2025-02-21 07:21] LABS: HSV-2 DNA, CSF NOT DETECTED copies/mL
[2025-02-21 07:21] LABS: Albumin, Serum 2.7 g/dL (3.6-5.1); VDRL, CSF Qual* NON-REACTIVE; West Nile Virus (IgM), CSF <0.90
== END 2025-02-17 21:05 | disposition other institution (70) | DRG 871 ==
LOC: SERX 16:50 → SERHOLD 17:00 → S3NX 02-11 14:02 → S2SX 02-17 08:43 → S2NX 02-20 08:54 → S3NX 02-20 08:54 → S2NX 02-20 08:55 → S2SX 02-20 08:55
PROVIDERS: Internal Medicine; Nurse Practitioner Family; Specialist; Student in an Organized Health Care Education/Training Program; Admitting Provider Student in an Organized Health Care Education/Training Program; Emergency Provider Emergency Medicine; PCP Family Medicine; Visit Provider Internal Medicine
PROC: 0DB78ZX Excision of Stomach, Pylorus, Via Natural or Artificial Opening Endoscopic, Diagnostic (ICD-10-PCS; CPT 43239; principal; 2025-02-11 15:00)
PROC: 0DJD8ZZ Inspection of Lower Intestinal Tract, Via Natural or Artificial Opening Endoscopic (ICD-10-PCS; CPT 45378; principal; 2025-02-12 17:45)
DX: A41.9 Sepsis, unspecified organism (principal); J15.9 Unspecified bacterial pneumonia; K29.71 Gastritis, unspecified, with bleeding; R65.21 Severe sepsis with septic shock; E87.20 Acidosis, unspecified; N17.9 Acute kidney failure, unspecified; D58.9 Hereditary hemolytic anemia, unspecified; G61.0 Guillain-Barre syndrome; D62 Acute posthemorrhagic anemia; J98.19 Other pulmonary collapse; E87.1 Hypo-osmolality and hyponatremia; R74.01 Elevation of levels of liver transaminase levels; G83.10 Monoplegia of lower limb affecting unspecified side; K57.30 Diverticulosis of large intestine without perforation or abscess without bleeding; I10 Essential (primary) hypertension; E78.5 Hyperlipidemia, unspecified; E86.0 Dehydration; K64.8 Other hemorrhoids; R13.10 Dysphagia, unspecified; D50.9 Iron deficiency anemia, unspecified; E86.1 Hypovolemia; E87.8 Other disorders of electrolyte and fluid balance, not elsewhere classified; R29.2 Abnormal reflex; E11.9 Type 2 diabetes mellitus without complications; Z79.84 Long term (current) use of oral hypoglycemic drugs; Z79.899 Other long term (current) drug therapy; Z79.4 Long term (current) use of insulin; Z87.891 Personal history of nicotine dependence; Z11.52 Encounter for screening for COVID-19
CPT/HCPCS: 36415; 36600; 70450; 71045; 72131; 74230; 76705; 76770; 80048; 80053; 80069; 81001; 82040; 82042; 82164; 82247; 82248; 82270; 82436; 82533; 82550; 82607; 82728; 82784; 82803; 82945; 83010; 83036; 83540; 83550; 83605; 83615; 83735; 83873; 83916; 83935; 84100; 84133; 84145; 84157; 84295; 84300; 84443; 84484; 84550; 85014; 85018; 85025; 85046; 85384; 85610; 85730; 86171; 86331; 86592; 86635; 86788; 86789; 86850; 86870; 86880; 86900; 86901; 86921; 86922; 87040; 87070; 87077; 87186; 87205; 87400; 87449; 87530; 87634; 87651; 87811; 89051; 92610; 93005; 93225; 94002; 94003; 94667; 96372; 97162; 99285; J0131; J0133; J0360; J0456; J0696; J1200; J1568; J1643; J1815; J1885; J1956; J2250; J2470; J2704; J3010; J3475; J3490; J7030; J7040; J7050; J7060; J7120; J7131; P9016; Q0138; Q0162; A9270

== ENCOUNTER 2025-11-20 10:00 | Outpatient (RCR) | payer MEDICARE, MEDICAID, SELFPAY ==
--- NOTE | 2025-10-29 11:15 | PT.OIERPT ---
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 This onset was sudden and he couldn't walk for a while. He went to rehab for some weeks in [place] and now walks for 20-30 mins at a time. PLOF: Pt was independent with mobility in the community PMH: DM, HTN Pt goal: more B LE strength to walk better, less foot tightness Objective: LE strength: Quads: 4-/5 Hip adduction: 4-/5 Ankle DF: 3+/5 Balance: single leg balance: 2-3 seconds each with unsteadiness Sensation: feels pins and needles with light touch all over B feet Tinetti gait and balance: Assessment: Pt presents with decreased SL balance, LE strength and decreased sensation of B feet which may be affecting proprioception and endurance with ambulation consistent with impaired proprioception secondary to [place] syndrome. Pt requires skilled therapy and has fair rehab potential to meet goals. Short Term and [facility] Goals 1. Independent with HEP ? 2. Improved SL balance to 5 seconds each LE ? 3. Improved LE strength of quads to 4/5 B ? 4. Pt will ambulate x 60 mins in order to grocery shop. Treatment Plan 1. Manual therapy ? 2. Therex 3. Gait training 4. Neuromuscular reeducation Frequency and Duration: 2x a week for 12 Rx sessions plus the evaluation Certification Dates: 10/29/25 to 01/27/26 Procedure Charges OP PT Eval Mod Complex 30 minutes: Yes
--- NOTE | 2025-11-05 14:33 | PT.ODAYNRPT ---
PT Outpatient Daily Note OP Daily Note Outpatient Physical Therapy Treatment Date: 11/05/25 Visit Reasons: GUILLANIN-BARRE SYNDROME Subjective: Same as time of evaluation Objective: See F/S for therex Assessment: Pt has some unsteadiness in tandem stance Plan: Continue per POC Length of Time (minutes) of Treatment: 30 Minutes Procedure Charges Therapeutic Exercise 30 minutes: Yes
--- NOTE | 2025-11-14 17:46 | PT.ODAYNRPT ---
PT Outpatient Daily Note OP Daily Note Outpatient Physical Therapy Treatment Date: 11/14/25 Visit Reasons: GUILLANIN-BARRE SYNDROME Subjective: Pt says his balance is a little better since last time Objective: See F/S for therex Assessment: Pt has more steadiness in tandem stance Plan: Continue per POC Length of Time (minutes) of Treatment: 30 Minutes Procedure Charges Therapeutic Exercise 30 minutes: Yes
--- NOTE | 2025-11-20 14:06 | PT.ODAYNRPT ---
PT Outpatient Daily Note OP Daily Note Outpatient Physical Therapy Treatment Date: 11/20/25 Visit Reasons: GUILLANIN-BARRE SYNDROME Subjective: Pt says his balance is a little better since last time and the feet feel numb most days Objective: See F/S for therex MT: STM B plantar feet x7' with [place] Assessment: The feet are ticklish and painful with manual therapy on plantar aspect. Plan: Continue per POC Length of Time (minutes) of Treatment: 30 Minutes Procedure Charges Therapeutic Exercise 30 minutes: Yes
== END 2025-11-28 23:59 | disposition home or self-care (01) ==
LOC: CPTX 10:00
PROVIDERS: PCP Family Medicine; Referring Provider Family Medicine; Visit Provider Family Medicine
DX: R26.9 Unspecified abnormalities of gait and mobility (principal); R20.2 Paresthesia of skin; R53.1 Weakness; G61.0 Guillain-Barre syndrome; E11.9 Type 2 diabetes mellitus without complications; I10 Essential (primary) hypertension
CPT/HCPCS: 97110; 97162